=== PATIENT | male | born 1955 | race Caucasian/White ===

== ENCOUNTER → 2016-10-13 | Outpatient (CLI) | payer BC ==
[~2016-10-13] MED LIST: ASPI-232 PO; ATOR-24 PO; CLOP1TAB15 PO; LISI-461 PO; NTRGSL/4 UT; TAMS0.4C38 PO; TPRSR/50 PO
[2016-10-13 12:26] LABS: BASO % 0.4 %; BASO ABS # 0.03 K/uL (0-0.2); COMPLETE YES; EOS % 1.6 %; HEMATOCRIT 49.2 % (42-52); IG% 0.3 %; LYMPH % 22.6 %; LYMPH ABS # 1.73 K/uL (1.2-3.4); MEAN CELL VOLUME 93.4 fL (80-100); MEAN CORPUSCULAR HGB CONC 32.1 g/dl (32-36); MONO % 9.8 %; NEUT % 65.3 %; PLATELET COUNT 200 K/uL (130-400); RED BLOOD COUNT 5.27 M/uL (4.7-6.1); WHITE BLOOD COUNT 7.65 K/uL (4.8-10.8)
[2016-10-13 13:00] LABS: ESTIMATED AVERAGE GLUCOSE 131 mg/dl; HA1C FLAG Normal (Normal)
[2016-10-13 13:10] LABS: ALT/SGPT 34 U/L (12-78); AST/SGOT 23 U/L (15-37); BLOOD UREA NITROGEN 16 mg/dl (7-18); BUN/CREATININE RATIO 17.5 (10-20); CALCIUM 9.2 mg/dl (8.5-10.1); CARBON DIOXIDE 28 mmol/L (21-32); CHLORIDE 108 mmol/L (98-107); CREATININE 0.94 mg/dl (0.60-1.40); GLUCOSE 105 mg/dl (70-99); POTASSIUM 4.3 mmol/L (3.5-5.1); SODIUM 141 mmol/L (136-145)
[2016-10-13 13:12] LABS: ALB/GLOB RATIO 1.3 (0.9-2); ALKALINE PHOSPHATASE 90 U/L (45-117); CHOLESTEROL 138 mg/dl (0-200); CHOLESTEROL/HDL RATIO 2.9; HDL CHOLESTEROL 47 mg/dl; LDL CHOLESTEROL CALCULATED 68 mg/dl; TRIGLYCERIDES 114 mg/dl (0-150); VERY LOW DENSITY LIPOPROT CALC 23 mg/dl
[2016-10-13 13:19] LABS: MANUAL MICROSCOPIC REQUIRED? NO; REVIEW REQ? NO; URINE APPEARANCE CLEAR (CLEAR); URINE BILIRUBIN NEG (NEG); URINE COLOR YELLOW; URINE EPITHELIAL CELL AUTO 0-5 /lpf (0-5); URINE NITRITE NEG (NEG); URINE SPECIFIC GRAVITY 1.021 (1.000-1.030); UROBILINOGEN NEG (NEG); ZZUR CULT IF INDIC CLEAN CATCH NO
== END | disposition home or self-care (01) ==
LOC: C.LABBFT 07:36
PROVIDERS: ATTEND Internal Medicine
DX: E88.81 Metabolic syndrome and other insulin resistance (principal); E78.00 Pure hypercholesterolemia, unspecified; I25.10 Atherosclerotic heart disease of native coronary artery without angina pectoris

== ENCOUNTER 2016-11-23 07:55 | Day surgery (SDC) | payer BC ==
[~2016-11-23] VITALS: Ht 193 cm; Wt 147.0 kg
[~2016-11-23 07:55] MED LIST changes: +LIDOCAINE HCL 1% 20 ML VIAL ONE; +LIDOCAINE/EPINEPHRINE 1% INJ 50 ML VIAL ONE; +SODIUM BICARB 8.4% INJ 50 MEQ/50 ML SYR IV ONE; +SODIUM CHLORIDE 0.9% 1000ML IV SCH
[2016-11-23 08:43] VITALS: Ht 193 cm; Wt 147.0 kg
[2016-11-23] MEDS ORDERED: FENTANYL CITRATE INJ 50 MCG/1 ML 2 ML VIAL ONE (09:49)
[2016-11-23] MEDS ORDERED: MIDAZOLAM HCL 1 MG/ML 2ML VIAL ONE (09:49)
[2016-11-23 09:58] VITALS: BP 138/94; PULSE 67; O2SAT 92
--- NOTE | 2016-11-23 10:05 | Procedure Note ---
Pre-Mod Sedation Assessment General Date of Moderate Sedation: Nov 23, 2016. Review Cardiovascular: regular rate, rhythm, no edema Abdomen: normal bowel sounds, non tender Lungs: chest non-tender, lungs clear Airway Class: II Pre-Sedation Airway Assessment Oral Cavity: Dental Abnormalities Able to Visualize Vocal Cords: No Short Thick Neck: No Hx of Sleep Apnea: No Smoking Status: Never Smoker Mallampati Classification: Class II ASA Classification: Class II Procedure Planning Contraindications-for Mod Sed: None Yes Notes The planned sedation has been discussed with the patient and consent obtained. I have identified the patient, determined the appropriateness of sedation and have assessed the patient immediately prior to the procedure. All medicine(s) and interventions are by my order.
--- NOTE | 2016-11-23 10:11 | History and Physical ---
History & Physical Date Nov 23, 2016. History of Present Illness Mr. Grant is a very pleasant 60-year-old man with a history of coronary artery disease status post inferolateral OR in 2010, hypertension, hypothyroidism, prediabetes, hyperlipidemia here today for further management of chronic venous insufficiency. Patient notes worsened lower extremity edema in his right ankle since the 70s after initially injuring his ankle. In 2005 he underwent ankle fusion by Dr. Tran due to continued pain. Since that time he has had worsened lower extremity edema, intermittent cellulitis, last occurring several years ago. He denies any significant history of blood clots. Denies any family history of blood clots. He has been wearing compression stockings on and off over the last several years. This is not significantly changed his symptoms. On days of worsened swelling he notes significant discomfort around his ankle. No recent cellulitis but continued skin discoloration. Recent cardiovascular studies: Lower extremity venous duplex (09/2016): Right GSV dilated with reflux in prox to mid calf, right SSV dilated but no reflux. Left GSV dilated with reflux in proximal and mid calf. Left SSV dilated with reflux. No DVT/SVT bilaterally Echo (01/2016): Normal LV size, mildly reduced LV function, EF 45-50 percent, hypokinesis in the inferolateral, lateral wall. Type 1 diastolic dysfunction, moderately dilated aortic root Past Medical/Surgical History ActiveProblems_10_[id number] 1. Aortic root dilatation (I77.810) 2. Benign prostate hyperplasia (N40.0) 3. BPH with obstruction/lower urinary tract symptoms (N40.1,N13.8) 4. CAD (coronary artery disease) (I25.10) 5. Cellulitis of ankle (L03.119) 6. Chronic venous insufficiency (I87.2) 7. Coronary artery disease (I25.10) 8. Dysmetabolic syndrome X (E88.81) 9. Encounter for prostate cancer screening (Z12.5) 10. Erectile dysfunction (N52.9) 11. Fecal occult blood test positive (R19.5) 12. Graves disease (E05.00) 13. Hypercholesterolemia (E78.00) 14. Hypertension (I10) 15. History of Hyperthyroidism (E05.90) 16. Microscopic hematuria (R31.29) 17. Obesity (E66.9) 18. Osteoarthritis (M19.90) 19. Other specified disorder of skin and subcutaneous tissue (L98.8) 20. Pre-diabetes (R73.03) 21. Tinea corporis (B35.4) 22. Tubular adenoma of colon (D12.6) Additional History Hepatic Disease: No Endocrine Disorder: No Kidney Disease: No Hypertension: Yes Heart Disease: Yes Bleeding Tendencies: No Infectious Diseases: No Allergies Coded Allergies: Chlorhexidine (Verified Allergy, Intermediate, RASH, 02/02/16) Home Medications Scheduled Aspirin (Aspir-81), 81 MG PO QAM Atorvastatin (Lipitor), 40 MG PO HS Lisinopril (Lisinopril), 10 MG PO QAM Metoprolol Succinate (Metoprolol Succinate ER), 25 MG PO QAM Nitroglycerin (Nitrostat), 0.4 MG UT PRN Tamsulosin Hcl (Flomax), 0.4 MG PO HS Physical Examination Skin: warm/dry Neck: supple Respiratory/Chest: lungs clear Cardiovascular: regular rate, rhythm Extremities: + pertinent finding (right lower extremity swelling) Neurologic/Psych: no motor/sensory deficits, alert Diagnosis Chronic venous insufficiency ASA Classification: ASA Class II Plan of Treatment Right GSV RFA ablation
[2016-11-23] MEDS ORDERED: FENTANYL CITRATE INJ 50 MCG/1 ML 2 ML VIAL IV ONE (10:45)
[2016-11-23] MEDS ORDERED: ORM MISCELLANEOUS MED XX ONE (11:04)
[2016-11-23] MEDS ORDERED: LIDOCAINE HCL 1% 20 ML VIAL SQ ONE (11:04)
--- NOTE | 2016-11-23 11:14 | Procedure Note ---
Post-Mod Sedation Assessment General Date of Moderate Sedation Nov 23, 2016. Review - Discharge Criteria Vital Signs Stable: Yes Alert/Oriented/Conversant: Yes Returned to Baseline Mental St: Yes Nausea Absent/Minimal: Yes Pain/Discomfort/Absent/Minimal: Yes Normal/Baseline Respirations: Yes Active Bleeding?: N/A Pt Received D/C Instructions: Yes Specific Proced. D/C Criteria Distal Pulses Present (Cardiac: Yes Groin site assessed-Card Cath: N/A Voided Prior To Discharge: N/A Discharged Patients Adult Escort/Transportation: Yes
--- NOTE | 2016-11-23 11:14 | [facility] Operative Report ---
Operative Report Operative Date Nov 23, 2016. Pre-Operative Diagnosis Chronic venous insufficiency Post-Operative Diagnosis Chronic venous insufficiency Procedure(s) Performed Right GSV ablation Surgeon Mireles Estimated Blood Loss <10 Findings Dilated right GSV. No superficial or deep vein thrombosis. Specimens none Drains none Anesthesia moderate Complication(s) None Disposition Recovery Room / PACU Indications chronic venous insufficiency Description of Procedure US guided access Right GSV below the knee. Catheter inserted, 2.5 cm from SFJ. Tumescent injected. US confirmed not in deep system. 4:40, 14 cycles of RFA right GSV. No complications. Patient tolerated well. US confirmed no DVT post procedure. I attest to the content of the Intraoperative Record and any orders documented therein. Any exceptions are noted below.
--- NOTE | 2016-11-23 11:15 | Discharge Instructions ---
Discharge Instructions Date of Service Nov 23, 2016. Visit Reason for Visit: Chronic Venous Insufficiency Discharge Discharge Diagnosis / Problem: Chronic venous insufficiency Discharge Goals Goal(s): Decrease discomfort, Improve function Activity Recommendations Activity Limitations: resume your previous activity Lifting Limitations: gradually increase as tolerated Exercise/Sports Limitations: rest today (resume normal walking later today), gradually increase as tolerated Driving or Machine Use: resume 1 day after discharge Anesthesia . Post Anesthesia Instructions: If you have had General Anesthesia or IV Sedation: * Do not drive today. * Resume driving when surgeon permits. * Do not make important decisions or sign legal documents today. * Call surgeon for: 1. Temperature elevations greater than 101 degrees F. 2. Uncontrollable pain. 3. Excessive bleeding. 4. Persistent nausea and vomiting. 5. Medication intolerance (nausea, vomiting or rash). * For nausea and vomiting use only clear liquids such as: tea, soda, bouillon until nausea subsides, then gradually increase diet as tolerated. * If you have any concerns or questions, call your surgeon's office. If physician is unavailable and it is an emergency, call 911 or go to the nearest emergency room. . Instructions / Follow-Up Instructions / Follow-Up KATHIE wrap until night before bed, Monday morning, wear your compression stockings and continue to wear indefinitely. Follow up Ultrasound as scheduled. Any severe pain, present to the emergency room concerned about DVT. Diet Recommendations Recommended Home Diet: resume previous diet Pending Studies Studies pending at discharge: yes List of pending studies: Venous ultrasound on Monday Medical Emergencies . Who to Call and When: Medical Emergencies: If at any time you feel your situation is an emergency, please call 911 immediately. . Non-Emergent Contact Non-Emergency issues call your: Primary Care Provider, [employer] Call Non-Emergent contact if: your pain is not controlled, your pain is concerning you, wound has increased redness, wound has increased pain . . "Provider Documentation" section prepared by Alirio Mireles. .
[2016-11-23 11:20] VITALS: BP 122/88; PULSE 70; TEMP 36.6; O2SAT 95
[2016-11-23 11:50] VITALS: BP 120/83; PULSE 76; TEMP 36.6; O2SAT 95
[2016-11-23 12:25] VITALS: BP 120/79; PULSE 74; TEMP 36.6; O2SAT 95
--- NOTE | 2016-11-23 12:58 | DIAGNOSTIC IMAGING REPORT ---
INTRAOPERATIVE VENOUS GUIDANCE NO CHARGE CLINICAL HISTORY: Diffuse ablation COMPARISON STUDY: No previous studies for comparison. FINDINGS: Intraoperative guidance was provided by the certified surgical technologist. There was no radiologist input IMPRESSION: Intraoperative ultrasound guidance provided by the certified surgical technologist Electronically signed by: Florin Daniel M.D. 11/23/2016 12:57 PM Dictated Date/Time: 11/23/2016 12:56 PM
== END 2016-11-23 12:25 | disposition home or self-care (01) ==
LOC: C.ACU 07:55
PROVIDERS: ATTEND Internal Medicine Interventional Cardiology
DX: I87.2 Venous insufficiency (chronic) (peripheral) (principal); I25.10 Atherosclerotic heart disease of native coronary artery without angina pectoris; I10 Essential (primary) hypertension; E03.9 Hypothyroidism, unspecified; E78.5 Hyperlipidemia, unspecified; R73.03 Prediabetes; N40.0 Benign prostatic hyperplasia without lower urinary tract symptoms; I77.810 Thoracic aortic ectasia; E88.81 Metabolic syndrome and other insulin resistance; Z79.82 Long term (current) use of aspirin; E66.9 Obesity, unspecified; M19.90 Unspecified osteoarthritis, unspecified site

== ENCOUNTER → 2017-05-01 | Outpatient (CLI) | payer BC ==
[~2017-05-01] MED LIST changes: -CLOP1TAB15 PO; -LIDOCAINE HCL 1% 20 ML VIAL ONE; -LIDOCAINE/EPINEPHRINE 1% INJ 50 ML VIAL ONE; -SODIUM BICARB 8.4% INJ 50 MEQ/50 ML SYR IV ONE; -SODIUM CHLORIDE 0.9% 1000ML IV SCH
[2017-05-01 13:05] LABS: ESTIMATED AVERAGE GLUCOSE 131 mg/dl; HA1C FLAG Normal (Normal)
[2017-05-01 13:27] LABS: PROSTATE SPECIFIC ANTIGEN 1.92 ng/ml (0.000-4.000)
== END | disposition home or self-care (01) ==
LOC: C.LABBFT 07:36
PROVIDERS: ATTEND Internal Medicine
DX: R73.03 Prediabetes (principal); Z12.5 Encounter for screening for malignant neoplasm of prostate; Z11.59 Encounter for screening for other viral diseases

== ENCOUNTER → 2017-08-28 | Outpatient (CLI) | payer BC | END | disposition home or self-care (01) | LOC: C.RDSM 07:20 | PROVIDERS: ATTEND Physical Medicine & Rehabilitation Sports Medicine | DX: Z96.642 Presence of left artificial hip joint (principal); M25.551 Pain in right hip ==

== ENCOUNTER → 2017-10-27 | Outpatient (CLI) | payer BC ==
[2017-10-27 12:12] LABS: BASO % 0.4 %; BASO ABS # 0.03 K/uL (0-0.2); EOS % 1.4 %; HEMATOCRIT 49.7 % (42-52); HEMOGLOBIN 16.3 g/dL (14.0-18.0); IG# 0.03 K/uL (0.00-0.02); LYMPH % 30.2 %; LYMPH ABS # 2.11 K/uL (1.2-3.4); MEAN CELL VOLUME 92.4 fL (80-100); MEAN CORPUSCULAR HEMOGLOBIN 30.3 pg (25-34); MEAN CORPUSCULAR HGB CONC 32.8 g/dl (32-36); MEAN PLATELET VOLUME 11.9 fL (7.4-10.4); MONO % 8.9 %; MONO ABS # 0.62 K/uL (0.11-0.59); NEUT % 58.7 %; PLATELET COUNT 170 K/uL (130-400); RED CELL DISTRIBUTION WIDTH CV 14.4 % (11.5-14.5); RED CELL DISTRIBUTION WIDTH SD 48.8 fL (36.4-46.3); WHITE BLOOD COUNT 6.99 K/uL (4.8-10.8)
[2017-10-27 12:32] LABS: HEMOGLOBIN A1C 6.3 % (4.5-5.6)
[2017-10-27 12:44] LABS: ALBUMIN 4.1 gm/dl (3.4-5.0); ALT/SGPT 34 U/L (12-78); AST/SGOT 29 U/L (15-37); BLOOD UREA NITROGEN 15 mg/dl (7-18); CALCIUM 8.9 mg/dl (8.5-10.1); CARBON DIOXIDE 28 mmol/L (21-32); CHOLESTEROL 113 mg/dl (0-200); CREATININE 0.89 mg/dl (0.60-1.40); GLUCOSE 100 mg/dl (70-99); POTASSIUM 4.3 mmol/L (3.5-5.1); SODIUM 142 mmol/L (136-145)
[2017-10-27 12:54] LABS: ALKALINE PHOSPHATASE 90 U/L (45-117); LDL CHOLESTEROL CALCULATED 49 mg/dl; TOTAL PROTEIN 7.3 gm/dl (6.4-8.2)
== END | disposition home or self-care (01) ==
LOC: C.LABBFT 07:33
PROVIDERS: ATTEND Internal Medicine
DX: I25.10 Atherosclerotic heart disease of native coronary artery without angina pectoris (principal); E05.90 Thyrotoxicosis, unspecified without thyrotoxic crisis or storm; R73.03 Prediabetes

== ENCOUNTER 2022-01-18 16:17 | Inpatient (IN) ==
[2022-01-18 17:20] LABS: Basophils # (auto) 0.05 K/uL (0-0.2); Basophils % (auto) 0.5 %; Eosinophils # (auto) 0.03 K/uL (0-0.50); Eosinophils % (auto) 0.3 %; Hematocrit (blood only) 50.1 % (40.1-51.0); Hemoglobin 15.3 g/dl (14.0-18.0); Immature Granulocytes # (auto) 0.05 K/uL (0.00-0.02); Immature Granulocytes % (auto) 0.5 %; Lymphocytes # (auto) 1.42 K/uL (1.2-3.4); Lymphocytes % (auto) 13.7 %; Mean Corpuscular Hemoglobin 28.9 pg (25.0-34.0); Mean Corpuscular Hgb Conc 30.5 g/dL (32.0-36.0); Mean Corpuscular Volume 94.7 fL (80.0-100.0); Mean Platelet Volume 11.6 fL (9.4-12.4); Monocytes % (auto) 6.7 %; Neutrophils # (auto) 8.14 K/uL (1.4-6.5); Neutrophils % (auto) 78.3 %; Platelet Count 181 K/uL (130-400); RDW Coefficient of Variation 15.3 % (11.5-14.5); RDW Standard Deviation 53.1 fL (36.4-46.3); Red Blood Count 5.29 M/uL (4.63-6.08); White Blood Count 10.39 K/ul (4.8-10.8)
--- NOTE | 2022-01-18 17:28 | Emergency Department Note ---
Impression & Plan Pneumonia, Hypoxia, Acute respiratory acidosis ED Provider Note NAME: ALTHEA GRIMES AGE: 66 SEX: M : 1955 ARRIVES VIA: Ambulance INFORMANT: Patient, ED PROVIDER(S): Robe Alexandre DO CHIEF COMPLAINT: Shortness of breath HPI: The patient is a 66-year-old male who presented to the emergency department by ambulance from [facility] for an evaluation of difficulty breathing. The patient was scheduled for a cataract surgery on his left eye today. They did notice that preop he was having some difficulty breathing every time he laid flat his oxygen saturation would drop. He was placed on supplemental oxygen. He was treated with Versed. His breathing started to become worse so he was sent to the emergency department for further evaluation. The patient did notice that his breathing has been labored over the course the last few weeks. He described it as having an upper respiratory tract infection with a cough which was productive for yellow sputum. He denies having any nausea or vomiting. He denies having any chest pain. He did note some lower extremity swelling especially in his right leg but this is not new for him. He has had this swelling for many years ever since he injured that leg. He denies having any hemoptysis. The patient did have a COVID test prior to the procedure which was negative. He states symptoms are moderately improved at this time. He was placed on oxygen mask by nursing. ROS: See above HPI for pertinent positives & negatives. A total of 10 systems reviewed and were otherwise negative. PAST MEDICAL HISTORY: See Below PAST SURGICAL HISTORY: See Below FAMILY HISTORY: See Below SOCIAL HISTORY: See Below HOME MEDICATIONS: See Below ALLERGIES: See Below VITALS: See Below PHYSICAL EXAMINATION: GENERAL: Patient is awake alert in no acute distress patient is resting comfortably and showing no signs of anxiety EYES: The conjunctivae are clear. The pupils right pupil is normal size and reactive. Left pupil is dilated consistent with recent surgical intervention. EARS, NOSE, MOUTH AND THROAT: The nose is without any evidence of any deformity. Mucous membranes are moist. Tongue is midline. NECK: The neck is nontender and supple. RESPIRATORY: Diminished breath sounds are noted throughout. There were rales in both upper lung elizabeth. There was mild conversational dyspnea. CARDIOVASCULAR: Regular rate and rhythm noted there no murmurs rubs or gallops normal S1 normal S2. GASTROINTESTINAL: The abdomen is soft. Abdomen is nontender. MUSCULOSKELETAL/EXTREMITIES: There is no evidence of gross deformity full range of motion is noted in the hips and shoulders. SKIN: Pedal edema was noted bilaterally right greater than left. There was mild venous stasis changes in the right lower extremity. There was no lymphangitic s treaking. NEUROLOGIC: Patient is awake alert and oriented x3 MEDICAL DECISION MAKING: The patient is a 66-year-old male who presented to the emergency department for an evaluation of difficulty breathing. The patient recently had a cataract procedure and and postop he was found to have difficulty breathing and hypoxia. He was sent to the emergency department for further evaluation. I discussed the patient's laboratory and radiographic studies with him. He was treated with IV antibiotics in the emergency department. He was also placed on supplemental oxygen. The patient was found to be hypoxic initially and with any exertion he would worsen with his respiratory distress. Because of his findings I discussed this case with the on-call [facility] hospitalist. They have agreed to evaluate the patient in the emergency department for further management and disposition. Triage Nursing notes reviewed. Prior medical records reviewed Vital Signs: reviewed and remarkable for hypoxia. Differential diagnosis: Reactive airway disease, pneumonia, pneumothorax, COPD, CHF, infections, cardiac ischemia, pulmonary embolism, musculoskeletal, gastrointestinal, as well as other pathologies. ER treatment provided: See below Diagnostics interpreted by me: ECG: EKG was obtained in the emergency department. My interpretation is sinus rhythm at 86 bpm. PVCs were noted. Nonspecific ST segment abnormalities were noted. Ectopic atrial pacemaker is noted as well. This was compared to a tracing from January 25, 2016. There was an increase in the rate. The ectopy is new. Otherwise no significant changes were noted. Cardiac Monitoring: An order was placed for continuous cardiac monitoring. The monitor shows a rate of 84 bpm with sinus rhythm. Laboratory studies: As stated above and show below. Imaging studies: See below Consultation(s): I discussed this case with Dr. Granados ED COURSE: Procedures: none Critical Care: I have personally spent greater than 5 minutes of critical care time in the direct management of this patient. This includes bedside care, interpretation of diagnostic studies, and testing, discussion with consultants, patient, and family members, and other required patient management activities. This 50 minutes is in excess of all separately billable procedures. Past Med/Surg History Medical History (Updated 01/18/22 @ 19:43 by Robe Alexandre DO) BPH (benign prostatic hyperplasia) Myocardial infarction (01/08/11) 2010--on aspirin--follows with Dr. Vazquez On anticoagulant therapy 162 mg aspirin daily Prediabetes metformin daily Tubular adenoma of colon Umbilical hernia Surgical History History of ankle surgery right ankle fusion--hardware in place History of appendectomy History of cardiac cath 12/2010 @ [facility]--no stents History of colonoscopy with polypectomy History of rotator cuff surgery left History of tooth extraction History of total hip replacement left Status post endovenous radiofrequency ablation of saphenous vein (11/23/16) Family History Father Myocardial infarction Coronary heart disease Mother Diabetes Stroke Sister Diabetes Aunt Colorectal cancer Other No family history of adverse response to anesthesia Denies family history of Ovarian cancer Prostate cancer Breast cancer Social History Smoking Status: Never smoker Second Hand Exposure: Yes (parents smoked); Hx Alcohol Use: Yes Alcohol type: beer and hard liquor Hx Substance Use: No Preferred Language: Amharic Communication Ability: Effective Drapery Counselor Required: No Beliefs That Will Affect Care: None marital status: Current Living Situation: Spouse current occupational status: retired Feels Safe at Home: Yes Childhood Exposure to Second-Hand Smoke: Yes caffeine: No Dental Care, Regularly: Yes Physical Activity Frequency: Does not Exercise Seatbelt Use: always Sunscreen Use: Yes (when he goes to the beach) Assistive Devices: Contacts and Glasses Allergies Allergies Allergy/AdvReac Type Severity Reaction Status Date / Time chlorhexidine Allergy Mild RASH Verified 01/18/22 19:29 Home Meds Home Medications Medication Instructions Recorded Confirmed cyanocobalamin (vitamin B-12) 1,000 mcg PO QAM 03/24/20 01/18/22 1,000 mcg tablet (Vitamin B-12) aspirin 81 mg tablet,delayed 162 mg PO DAILY 01/18/22 01/18/22 release prednisolone 1 %-moxifloxacin 0.5 1 drp ophthalmic (eye) QID 01/18/22 01/18/22 %-bromfenac 0.075 % eye drops susp Previous Rx's Medication Instructions Recorded nitroglycerin 0.4 mg sublingual 0.4 mg sublingual UD PRN Angina 12/18/20 tablet #25 tabs atorvastatin 80 mg tablet 80 mg PO QAM #30 tabs 02/08/21 losartan 50 mg tablet 50 mg PO QAM #90 tabs 05/10/21 metoprolol succinate 50 mg 25 mg PO QAM #45 tabs 10/18/21 tablet,extended release 24 hr metformin 500 mg tablet,extended 1,000 mg PO BID #360 tabs 01/17/22 release 24 hr Results & Data (ED) Vital Signs Vital Signs - 24 hr 01/18/22 16:32 01/18/22 16:37 01/18/22 16:37 Temperature 36.6 C 36.6 C Temperature Source Oral Oral Pulse Rate 78 Pulse Rate [Right Finger] 78 Pulse Rhythm Regular Pulse Rhythm [Right Finger] Regular Pulse Strength Normal Pulse Strength [Right Finger] Normal Respiratory Rate 17 17 Respiratory Effort / Characteristics Non-Labored Spontaneous Non-Labored Non-Labored Spontaneous Respiratory Depth Normal Normal Normal Respiratory Pattern Regular Regular Regular Blood Pressure 133/82 Blood Pressure [Left Arm] 133/82 Blood Pressure Mean 99 Blood Pressure Mean [Left Arm] 99 Blood Pressure Position Lying Blood Pressure Position [Left Arm] Lying Pulse Oximetry 92 93 Oxygen Delivery Method Oxymask Oxymask Oxymask Oxygen Flow Rate 7 7 7 Sepsis Recent Fever Within 48 Hours No Sepsis New/Unexplained Change in Mental Status No Sepsis Action Taken by Nursing No Action Required 01/18/22 16:42 01/18/22 17:18 01/18/22 18:32 Temperature Temperature Source Pulse Rate 82 Pulse Rate [Right Finger] 88 Pulse Rhythm Regular Pulse Rhythm [Right Finger] Regular Pulse Strength Pulse Strength [Right Finger] Normal Respiratory Rate 17 15 Respiratory Effort / Characteristics Non-Labored Respiratory Depth Normal Respiratory Pattern Blood Pressure Blood Pressure [Left Arm] 118/74 Blood Pressure Mean Blood Pressure Mean [Left Arm] 88 Blood Pressure Position Blood Pressure Position [Left Arm] Pulse Oximetry 92 89 L Oxygen Delivery Method Nasal Cannula Oxymask Nasal Cannula Oxygen Flow Rate 6 7 6 Sepsis Recent Fever Within 48 Hours Sepsis New/Unexplained Change in Mental Status Sepsis Action Taken by Nursing 01/18/22 19:41 Temperature Temperature Source Pulse Rate Pulse Rate [Right Finger] 84 Pulse Rhythm Pulse Rhythm [Right Finger] Pulse Strength Pulse Strength [Right Finger] Respiratory Rate 21 Respiratory Effort / Characteristics Non-Labored Spontaneous Respiratory Depth Normal Respiratory Pattern Regular Blood Pressure Blood Pressure [Left Arm] 122/72 Blood Pressure Mean Blood Pressure Mean [Left Arm] 88 Blood Pressure Position Blood Pressure Position [Left Arm] Sitting Pulse Oximetry 92 Oxygen Delivery Method Oxymask Oxygen Flow Rate 11 Sepsis Recent Fever Within 48 Hours Sepsis New/Unexplained Change in Mental Status Sepsis Action Taken by Assisted Medications Current Medication List: was personally reviewed by me Laboratory Data Attestation: I reviewed the patient's lab results. Result diagrams: 01/18/22 16:40 01/18/22 16:40 Lab Results 01/18/22 01/18/22 01/18/22 Range/Units 16:40 16:40 16:40 WBC 10.39 (4.8-10.8) K/ul RBC 5.29 (4.63-6.08) M/uL Hgb 15.3 (14.0-18.0) g/dl Hct 50.1 (40.1-51.0) % MCV 94.7 (80.0-100.0) fL MCH 28.9 (25.0-34.0) pg MCHC 30.5 L (32.0-36.0) g/dL RDW Std Deviation 53.1 H (36.4-46.3) fL RDW Coeff of Sara 15.3 H (11.5-14.5) % Plt Count 181 (130-400) K/uL MPV 11.6 (9.4-12.4) fL Immature Gran % (Auto) 0.5 % Neut % (Auto) 78.3 % Lymph % (Auto) 13.7 % Burnet % (Auto) 6.7 % Eos % (Auto) 0.3 % Baso % (Auto) 0.5 % Neut # (Auto) 8.14 H (1.4-6.5) K/uL Lymph # (Auto) 1.42 (1.2-3.4) K/uL Burnet # (Auto) 0.70 (0.24-0.82) K/uL Eos # (Auto) 0.03 (0-0.50) K/uL Baso # (Auto) 0.05 (0-0.2) K/uL Immature Gran # (Auto) 0.05 H (0.00-0.02) K/uL PT 11.7 (9.0-12.0) Seconds INR 1.1 (0.9-1.1) APTT 24.8 (21.0-31.0) Seconds PTT Ratio 0.9 D-Dimer 440 (0-500) ug/L FEU VBG pH (7.36-7.41) VBG pCO2 (38-50) mmHg VBG pO2 mmHg VBG HCO3 mmol/L VBG O2 Saturation % VBG Base Excess mEq/L Methemoglobin (0.0-1.5) % Sodium 140 (136-145) mmol/L Potassium 4.2 (3.5-5.1) mmol/L Chloride 101 (98-107) mmol/L Carbon Dioxide 30 (21-32) mmol/L Anion Gap 9 (3-11) BUN 16 (6-23) mg/dl Creatinine 0.75 (0.6-1.4) mg/dl Est Cr Clr Drug Dosing 158.1 ml/min Est GFR ( Amer) 110.8 ml/min Est GFR (Non-Af Amer) 95.6 ml/min BUN/Creatinine Ratio 21.3 H (10-20) Glucose 132 H (70-99(Fasting)) mg/dl Calcium 9.2 (8.5-10.1) mg/dl Magnesium 2.1 (1.7-2.4) mg/dl Total Bilirubin 1.0 (0.2-1.0) mg/dl AST 22 (13-39) U/L ALT 23 (7-52) U/L Alkaline Phosphatase 75 (34-104) U/L Troponin I High Sens 9.9 (0-20) pg/ml B-Natriuretic Peptide (0-100) pg/ml Total Protein 7.3 (6.0-8.3) gm/dl Albumin 4.2 (3.4-5.0) gm/dl Globulin 3.1 (2.5-4.0) gm/dl Albumin/Globulin Ratio 1.4 (0.9-2) Urine Color Urine Appearance (Clear) Urine pH (4.5-7.5) Ur Specific Monroe (1.000-1.030) Urine Protein (Negative) Urine Glucose (UA) (Negative) Urine Ketones (Negative) Urine Blood (Negative) Urine Nitrite (Negative) Urine Bilirubin (Negative) Urine Urobilinogen (Negative) Ur Leukocyte Esterase (Negative) SARS-CoV-2 (PCR) (Negative) Influenza Type A (PCR) (Neg) Influenza Type B (PCR) (Neg) RSV (RT-PCR) (Neg) 01/18/22 01/18/22 01/18/22 Range/Units 16:40 17:26 17:26 WBC (4.8-10.8) K/ul RBC (4.63-6.08) M/uL Hgb (14.0-18.0) g/dl Hct (40.1-51.0) % MCV (80.0-100.0) fL MCH (25.0-34.0) pg MCHC (32.0-36.0) g/dL RDW Std Deviation (36.4-46.3) fL RDW Coeff of Sara (11.5-14.5) % Plt Count (130-400) K/uL MPV (9.4-12.4) fL Immature Gran % (Auto) % Neut % (Auto) % Lymph % (Auto) % Burnet % (Auto) % Eos % (Auto) % Baso % (Auto) % Neut # (Auto) (1.4-6.5) K/uL Lymph # (Auto) (1.2-3.4) K/uL Burnet # (Auto) (0.24-0.82) K/uL Eos # (Auto) (0-0.50) K/uL Baso # (Auto) (0-0.2) K/uL Immature Gran # (Auto) (0.00-0.02) K/uL PT (9.0-12.0) Seconds INR (0.9-1.1) APTT (21.0-31.0) Seconds PTT Ratio D-Dimer (0-500) ug/L FEU VBG pH (7.36-7.41) VBG pCO2 (38-50) mmHg VBG pO2 mmHg VBG HCO3 mmol/L VBG O2 Saturation % VBG Base Excess mEq/L Methemoglobin (0.0-1.5) % Sodium (136-145) mmol/L Potassium (3.5-5.1) mmol/L Chloride (98-107) mmol/L Carbon Dioxide (21-32) mmol/L Anion Gap (3-11) BUN (6-23) mg/dl Creatinine (0.6-1.4) mg/dl Est Cr Clr Drug Dosing ml/min Est GFR ( Amer) ml/min Est GFR (Non-Af Amer) ml/min BUN/Creatinine Ratio (10-20) Glucose (70-99(Fasting)) mg/dl Calcium (8.5-10.1) mg/dl Magnesium (1.7-2.4) mg/dl Total Bilirubin (0.2-1.0) mg/dl AST (13-39) U/L ALT (7-52) U/L Alkaline Phosphatase (34-104) U/L Troponin I High Sens (0-20) pg/ml B-Natriuretic Peptide 43 (0-100) pg/ml Total Protein (6.0-8.3) gm/dl Albumin (3.4-5.0) gm/dl Globulin (2.5-4.0) gm/dl Albumin/Globulin Ratio (0.9-2) Urine Color Yellow Urine Appearance Clear (Clear) Urine pH 5.5 (4.5-7.5) Ur Specific Monroe 1.021 (1.000-1.030) Urine Protein Negative (Negative) Urine Glucose (UA) Negative (Negative) Urine Ketones Negative (Negative) Urine Blood Negative (Negative) Urine Nitrite Negative (Negative) Urine Bilirubin Negative (Negative) Urine Urobilinogen Negative (Negative) Ur Leukocyte Esterase Negative (Negative) SARS-CoV-2 (PCR) NEGATIVE (Negative) Influenza Type A (PCR) Negative (Neg) Influenza Type B (PCR) Negative (Neg) RSV (RT-PCR) Negative (Neg) 01/18/22 01/18/22 Range/Units 17:54 17:54 WBC (4.8-10.8) K/ul RBC (4.63-6.08) M/uL Hgb (14.0-18.0) g/dl Hct (40.1-51.0) % MCV (80.0-100.0) fL MCH (25.0-34.0) pg MCHC (32.0-36.0) g/dL RDW Std Deviation (36.4-46.3) fL RDW Coeff of Sara (11.5-14.5) % Plt Count (130-400) K/uL MPV (9.4-12.4) fL Immature Gran % (Auto) % Neut % (Auto) % Lymph % (Auto) % Burnet % (Auto) % Eos % (Auto) % Baso % (Auto) % Neut # (Auto) (1.4-6.5) K/uL Lymph # (Auto) (1.2-3.4) K/uL Burnet # (Auto) (0.24-0.82) K/uL Eos # (Auto) (0-0.50) K/uL Baso # (Auto) (0-0.2) K/uL Immature Gran # (Auto) (0.00-0.02) K/uL PT (9.0-12.0) Seconds INR (0.9-1.1) APTT (21.0-31.0) Seconds PTT Ratio D-Dimer (0-500) ug/L FEU VBG pH 7.25 L (7.36-7.41) VBG pCO2 79 H (38-50) mmHg VBG pO2 58 mmHg VBG HCO3 35 mmol/L VBG O2 Saturation 87.6 % VBG Base Excess 4.6 mEq/L Methemoglobin 0.7 (0.0-1.5) % Sodium (136-145) mmol/L Potassium (3.5-5.1) mmol/L Chloride (98-107) mmol/L Carbon Dioxide (21-32) mmol/L Anion Gap (3-11) BUN (6-23) mg/dl Creatinine (0.6-1.4) mg/dl Est Cr Clr Drug Dosing ml/min Est GFR ( Amer) ml/min Est GFR (Non-Af Amer) ml/min BUN/Creatinine Ratio (10-20) Glucose (70-99(Fasting)) mg/dl Calcium (8.5-10.1) mg/dl Magnesium (1.7-2.4) mg/dl Total Bilirubin (0.2-1.0) mg/dl AST (13-39) U/L ALT (7-52) U/L Alkaline Phosphatase (34-104) U/L Troponin I High Sens (0-20) pg/ml B-Natriuretic Peptide (0-100) pg/ml Total Protein (6.0-8.3) gm/dl Albumin (3.4-5.0) gm/dl Globulin (2.5-4.0) gm/dl Albumin/Globulin Ratio (0.9-2) Urine Color Urine Appearance (Clear) Urine pH (4.5-7.5) Ur Specific Monroe (1.000-1.030) Urine Protein (Negative) Urine Glucose (UA) (Negative) Urine Ketones (Negative) Urine Blood (Negative) Urine Nitrite (Negative) Urine Bilirubin (Negative) Urine Urobilinogen (Negative) Ur Leukocyte Esterase (Negative) SARS-CoV-2 (PCR) (Negative) Influenza Type A (PCR) (Neg) Influenza Type B (PCR) (Neg) RSV (RT-PCR) (Neg) Administered Medications Discontinued Medications Piperacillin Sod/Tazobactam Sod (Zosyn) 4.5 gm in 120 mls @ 240 mls/hr IV NOW ONE Stop: 01/18/22 19:03 Last Infusion: 01/18/22 19:24 Dose: 0 mls/hr Documented By: Admin: 01/18/22 18:50 Dose: 240 mls/hr Documented By: BRENNEN Ondansetron HCl (Ondansetron Inj 2 Mg/Ml 2 Ml Vial) Confirm Administered Dose 4 mg .ROUTE .STK-MED ONE Stop: 01/18/22 17:32 Last Admin: 01/18/22 17:32 Dose: 4 mg Documented By: BRENNEN Imaging Data Radiologist's Impression: Chest X-Ray 01/18/22 17:06 SINGLE VIEW CHEST CLINICAL HISTORY: Dyspnea. FINDINGS: An AP, portable, upright chest radiograph is compared to study dated 01/06/2011. The heart is enlarged noting atherosclerotic calcification of the thoracic aorta. There is pulmonary vascular congestion. There are bibasilar opacities, left greater than right. No large pleural effusion or pneumothorax is seen. The skeletal structures are osteopenic. The bony thorax is grossly intact. IMPRESSION: 1. Cardiomegaly with pulmonary vascular congestion. 2. There are left greater than right bibasilar opacities, likely representing atelectasis. Correlate clinically for evidence of an infectious/inflammatory pneumonitis. Radiographic follow-up to resolution is recommended. ACT 112: Negative or not required by law. Electronically signed by: John Rivers M.D. 01/18/2022 7:07 PM Discharge Plan Visit Data Chief Complaint: Shortness of Breath/Dyspnea Stated Complaint: SOB ED Provider: Robe Alexandre Discharge Problem: Pneumonia, Hypoxia, Acute respiratory acidosis Patient Disposition: Being Evaluated by Hospitalist Forms Stand Alone Forms: [facility] Prescriptions Prescriptions: No Action nitroglycerin 0.4 mg tablet, sublingual 0.4 mg SL UD PRN (Reason: Angina) Qty: 25 3RF atorvastatin 80 mg tablet 80 mg PO QAM Qty: 30 11RF losartan 50 mg tablet 50 mg PO QAM Qty: 90 3RF metoprolol succinate 50 mg tablet extended release 24 hr 25 mg PO QAM Qty: 45 3RF metformin 500 mg tablet extended release 24 hr 1,000 mg PO BID Qty: 360 3RF cyanocobalamin (vitamin B-12) [Vitamin B-12] 1,000 mcg Tablet 1,000 mcg PO QAM aspirin 81 mg Tablet,Delayed Release (Dr/Ec) 162 mg PO DAILY [id number] 1-0.5-0.075 % Drops,Suspension 1 drp OPHTHALMIC (EYE) QID Rx Instructions: PT HAS OWN BOTTLE. STARTED 01/18/22. Referrals Referrals: Arie Mejia MD [Primary Care Provider] -
[2022-01-18] MEDS ORDERED: ONDANSETRON INJ 2 MG/ML 2 ML VIAL ONE (17:31)
[2022-01-18 17:32] LABS: D Dimer 440 ug/L FEU (0-500); INR 1.1 (0.9-1.1); Partial Thromboplastin Ratio 0.9; Partial Thromboplastin Time 24.8 Seconds (21.0-31.0); Prothrombin Time 11.7 Seconds (9.0-12.0)
[2022-01-18 17:47] LABS: Troponin I High Sensitivity 9.9 pg/ml (0-20)
[2022-01-18 18:08] LABS: Albumin Globulin Ratio 1.4 (0.9-2); Albumin Level 4.2 gm/dl (3.4-5.0); BUN Creatinine Ratio 21.3 (10-20); Calcium 9.2 mg/dl (8.5-10.1); Creatinine Clr Calc Pharmacy 158.1 ml/min; Est GFR (African American) 110.8 ml/min; Est GFR (Non-African American) 95.6 ml/min; Globulin 3.1 gm/dl (2.5-4.0); Magnesium 2.1 mg/dl (1.7-2.4); Potassium 4.2 mmol/L (3.5-5.1); Total Protein 7.3 gm/dl (6.0-8.3)
[2022-01-18 18:08] LABS: Appearance Urine Clear (Clear); Bilirubin Urine Negative (Negative); Blood Urine Negative (Negative); Color Urine Yellow; Glucose Urine UA Negative (Negative); Ketones Urine Negative (Negative); Leukocyte Esterase Urine Negative (Negative); Nitrite Urine Negative (Negative); Protein Urine Negative (Negative); Specific Gravity Urine 1.021 (1.000-1.030); Urobilinogen Urine Negative (Negative); pH Urine 5.5 (4.5-7.5)
[2022-01-18 18:19] LABS: Base Excess VBG 4.6 mEq/L; HCO3 VBG 35 mmol/L; Oxygen Saturation VBG 87.6 %; PCO2 VBG 79 mmHg (38-50); PO2 VBG 58 mmHg; pH VBG 7.25 (7.36-7.41)
[2022-01-18] MEDS ORDERED: PIPERACILLIN/TAZOBACTAM 4.5 GM/120 ML BAG IV ONE (18:34)
[2022-01-18 18:46] LABS: Influenza A virus by PCR Negative (Neg); Influenza B virus by PCR Negative (Neg); RSV by PCR Negative (Neg); SARS CoV2 RNA(COVID-19) InHosp NEGATIVE (Negative)
--- NOTE | 2022-01-18 19:09 | XRay Report ---
SINGLE VIEW CHEST CLINICAL HISTORY: Dyspnea. FINDINGS: An AP, portable, upright chest radiograph is compared to study dated 01/06/2011. The heart i s enlarged noting atherosclerotic calcification of the thoracic aorta. There is pulmonary vascular co ngestion. There are bibasilar opacities, left greater than right. No large pleural effusion or pneumo thorax is seen. The skeletal structures are osteopenic. The bony thorax is grossly intact. IMPRESSION: 1. Cardiomegaly with pulmonary vascular congestion. 2. There are left greater than right bibasilar opacities, likely representing atelectasis. Correlate clinically for evidence of an infectious/inflammatory pneumonitis. Radiographic follow-up to resoluti on is recommended. ACT 112: Negative or not required by law. Electronically signed by: John Rivers M.D. 01/18/2022 7:07 PM
[2022-01-18] MEDS ORDERED: ALBUT/IPRATROP 3MG/0.5MG NEB 3 ML VIAL NEB STA (19:30)
--- NOTE | 2022-01-18 20:39 | History & Physical Report ---
Date of Service January 18, 2022 Assessment & Plan (1) Acute respiratory failure with hypoxia: Plan: Acute respiratory failure with hypoxia/pneumonia- Zosyn 4.5 g IV every 8 hours Duonebs every 4 hours while awake and every 2 hours when necessary. Pulmicort Respules 0.5 mg inhaled twice daily Guaifenesin extended release 12 mg p.o. twice daily Nasal cannula oxygen, titrate to keep pulse ox around 94% (2) Pneumonia: Plan: See above (3) Dyslipidemia: Plan: Continue atorvastatin 80 mg in the morning (4) Coronary artery disease: Plan: CAD/hypertension/history of MS- Continue aspirin, losartan, metoprolol succinate and nitroglycerin sublingual's as needed (5) Hypertension: Plan: See above (6) Myocardial infarction: Plan: See above (7) Impaired fasting glucose: Plan: Impaired fasting glucose- Hold metformin Place on Accu-Cheks before meals and at bedtime with NovoLog coverage per scale Present on Admission?: Yes (8) History of cataract surgery: Plan: The patient will continue to use his eyedrops as directed on labels. He reports that he is due for a follow-up office visit tomorrow, and I asked that he or his call the eye doctor's office to report that he is in the hospital History of Present Illness Chief Complaint: The patient underwent a cataract extraction at [facility] earlier in the day today, was noted to have difficulty with breathing and oxygenation while there, and was referred to the emergency department for further assessment. Primary Care Provider: Arie Mejia MD The patient is a 66-year-old male with a past medical history including morbid obesity, dyslipidemia, impaired fasting glucose, hypertension, Graves' disease, CKD, chronic venous insufficiency, BPH and myocardial infarction. He reports that over the past 2 weeks he has been feeling somewhat short of breath and had a cough productive of yellow sputum. He was noted to have decreased oxygenation during his procedure earlier in the day today, was sent to the emergency department, and found to have hypoxia with pulse ox in 89%. Chest x-ray showed bibasilar pneumonia, left greater than right. In the emergency department patient received Zofran IV, Zosyn IV and DuoNeb. Allergies Allergy/AdvReac Type Severity Reaction Status Date / Time chlorhexidine Allergy Mild RASH Verified 01/18/22 19:29 Home Medications Medication Instructions Recorded Confirmed Type cyanocobalamin (vitamin B-12) 1,000 mcg PO QAM 03/24/20 01/18/22 History 1,000 mcg tablet (Vitamin B-12) nitroglycerin 0.4 mg sublingual 0.4 mg sublingual UD PRN Angina 12/18/20 01/18/22 Rx tablet #25 tabs atorvastatin 80 mg tablet 80 mg PO QAM #30 tabs 02/08/21 01/18/22 Rx losartan 50 mg tablet 50 mg PO QAM #90 tabs 05/10/21 01/18/22 Rx metoprolol succinate 50 mg 25 mg PO QAM #45 tabs 10/18/21 01/18/22 Rx tablet,extended release 24 hr metformin 500 mg tablet,extended 1,000 mg PO BID #360 tabs 01/17/22 01/18/22 Rx release 24 hr aspirin 81 mg tablet,delayed 162 mg PO DAILY 01/18/22 01/18/22 History release prednisolone 1 %-moxifloxacin 0.5 1 drp ophthalmic (eye) QID 01/18/22 01/18/22 History %-bromfenac 0.075 % eye drops susp Past Med/Surg History Medical History (Updated 01/19/22 @ 02:30 by Huan Carrion MD) BPH (benign prostatic hyperplasia) Myocardial infarction (01/08/11) 2010--on aspirin--follows with Dr. Vazquez On anticoagulant therapy 162 mg aspirin daily Prediabetes metformin daily Tubular adenoma of colon Umbilical hernia Surgical History (Updated 01/19/22 @ 02:32 by Huan Carrion MD) History of ankle surgery right ankle fusion--hardware in place History of appendectomy History of cardiac cath 12/2010 @ [facility]--no stents History of colonoscopy with polypectomy History of rotator cuff surgery left History of tooth extraction History of total hip replacement left Status post endovenous radiofrequency ablation of saphenous vein (11/23/16) Family History Father Myocardial infarction Coronary heart disease Mother Diabetes Stroke Sister Diabetes Aunt Colorectal cancer Other No family history of adverse response to anesthesia Denies family history of Ovarian cancer Prostate cancer Breast cancer Social History Smoking Status: Never smoker Second Hand Exposure: Yes (parents smoked); Hx Alcohol Use: Yes Alcohol type: beer and hard liquor Hx Substance Use: No Preferred Language: Yakut Communication Ability: Effective Ostrich Farmer Required: No Beliefs That Will Affect Care: None marital status: Current Living Situation: Spouse current occupational status: retired Feels Safe at Home: Yes Childhood Exposure to Second-Hand Smoke: Yes caffeine: No Dental Care, Regularly: Yes Physical Activity Frequency: Does not Exercise Seatbelt Use: always Sunscreen Use: Yes (when he goes to the beach) Assistive Devices: Contacts and Glasses Review of Systems Review of Systems: The patient denies chest pain, palpitations, lower extremity swelling, sore throat, fevers, chills, sweats, nausea, vomiting, diarrhea , constipation, abdominal pain, pelvic pain, blood in urine or stool, dysuria, urinary frequency or urgency, lightheadedness, dizziness, memory loss, loss of consciousness, rash, abnormal bruising or bleeding, imbalance, focal or generalized weakness, numbness or tingling in arms or legs, generalized arthralgias or myalgias, back or neck pain, or night sweats. The review of systems is otherwise negative other than for that already noted above, and at least 10 systems have been reviewed. Physical Exam Physical Exam: The patient is awake, alert and oriented 3, well developed and well nourished, normocephalic and atraumatic, lying in bed and in no acute distress. HEENT--PERRL, EOMI, mucous membranes and oropharynx dry. Neck--supple. No JVD. No bruits. Thyroid normal, trachea midline, no adenopathy. Heart--normal S1 and S2. No murmurs, rubs or gallops. Lungs--clear bilaterally, no respiratory distress, no accessory muscle use. Abdomen--normal bowel sounds and soft. Nontender. Nondistended. Morbidly obese Extremities--no cyanosis or clubbing. No edema. Dermatologic--normal skin turgor, normal color, no abnormal lymph nodes, no rash. Neurologic--cranial nerves II through XII grossly intact. Rheumatologic--normal range of motion. Psychiatric--normal affect. Results & Data Results & Data ([facility]) Vital Signs (Past 12 Hours) Vital Signs Temp Pulse Pulse Resp BP BP Pulse Ox 01/18/22 19:41 84 21 122/72 92 01/18/22 18:32 88 15 118/74 89 L 01/18/22 17:18 82 17 92 01/18/22 16:42 01/18/22 16:37 36.6 C 78 17 133/82 93 01/18/22 16:37 01/18/22 16:32 36.6 C 78 17 133/82 92 O2 Del Method O2 Flow Rate 01/18/22 19:41 Oxymask 11 01/18/22 18:32 Nasal Cannula 6 01/18/22 17:18 Oxymask 7 01/18/22 16:42 Nasal Cannula 6 01/18/22 16:37 Oxymask 7 01/18/22 16:37 Oxymask 7 01/18/22 16:32 Oxymask 7 Laboratory Results Laboratory Results WBC 10.39 K/ul (4.8-10.8) 01/18/22 16:40 RBC 5.29 M/uL (4.63-6.08) 01/18/22 16:40 Hgb 15.3 g/dl (14.0-18.0) 01/18/22 16:40 Hct 50.1 % (40.1-51.0) 01/18/22 16:40 MCV 94.7 fL (80.0-100.0) 01/18/22 16:40 MCH 28.9 pg (25.0-34.0) 01/18/22 16:40 MCHC 30.5 g/dL (32.0-36.0) L 01/18/22 16:40 RDW Std Deviation 53.1 fL (36.4-46.3) H 01/18/22 16:40 RDW Coeff of Sara 15.3 % (11.5-14.5) H 01/18/22 16:40 Plt Count 181 K/uL (130-400) 01/18/22 16:40 MPV 11.6 fL (9.4-12.4) 01/18/22 16:40 Immature Gran % (Auto) 0.5 % 01/18/22 16:40 Neut % (Auto) 78.3 % 01/18/22 16:40 Lymph % (Auto) 13.7 % 01/18/22 16:40 [place] % (Auto) 6.7 % 01/18/22 16:40 Eos % (Auto) 0.3 % 01/18/22 16:40 Baso % (Auto) 0.5 % 01/18/22 16:40 Neut # (Auto) 8.14 K/uL (1.4-6.5) H 01/18/22 16:40 Lymph # (Auto) 1.42 K/uL (1.2-3.4) 01/18/22 16:40 [place]lin # (Auto) 0.70 K/uL (0.24-0.82) 01/18/22 16:40 Eos # (Auto) 0.03 K/uL (0-0.50) 01/18/22 16:40 Baso # (Auto) 0.05 K/uL (0-0.2) 01/18/22 16:40 Immature Gran # (Auto) 0.05 K/uL (0.00-0.02) H 01/18/22 16:40 PT 11.7 Seconds (9.0-12.0) 01/18/22 16:40 INR 1.1 (0.9-1.1) 01/18/22 16:40 APTT 24.8 Seconds (21.0-31.0) 01/18/22 16:40 PTT Ratio 0.9 01/18/22 16:40 D-Dimer 440 ug/L FEU (0-500) 01/18/22 16:40 ABG pH 7.30 (7.35-7.45) L 01/18/22 20:46 ABG pCO2 76 mmHg (35-46) H 01/18/22 20:46 ABG pO2 52 mmHg (80-95) L 01/18/22 20:46 ABG HCO3 37 mmol/L (19-24) H 01/18/22 20:46 ABG O2 Saturation 84.4 % (90-95) L 01/18/22 20:46 ABG Base Excess 8.0 mEq/L (-9-1.8) H 01/18/22 20:46 [place] Test Pos (Pos) 01/18/22 20:46 VBG pH 7.25 (7.36-7.41) L 01/18/22 17:54 VBG pCO2 79 mmHg (38-50) H 01/18/22 17:54 VBG pO2 58 mmHg 01/18/22 17:54 VBG HCO3 35 mmol/L 01/18/22 17:54 VBG O2 Saturation 87.6 % 01/18/22 17:54 VBG Base Excess 4.6 mEq/L 01/18/22 17:54 Methemoglobin 0.7 % (0.0-1.5) 01/18/22 17:54 Oxygen Given 30% 01/18/22 20:46 Sodium 140 mmol/L (136-145) 01/18/22 16:40 Potassium 4.2 mmol/L (3.5-5.1) 01/18/22 16:40 Chloride 101 mmol/L (98-107) 01/18/22 16:40 Carbon Dioxide 30 mmol/L (21-32) 01/18/22 16:40 Anion Gap 9 (3-11) 01/18/22 16:40 BUN 16 mg/dl (6-23) 01/18/22 16:40 Creatinine 0.75 mg/dl (0.6-1.4) 01/18/22 16:40 Est Cr Clr Drug Dosing 158.1 ml/min 01/18/22 16:40 Est GFR ( Amer) 110.8 ml/min 01/18/22 16:40 Est GFR (Non-Af Amer) 95.6 ml/min 01/18/22 16:40 BUN/Creatinine Ratio 21.3 (10-20) H 01/18/22 16:40 Glucose 132 mg/dl (70-99(Fasting)) H 01/18/22 16:40 Calcium 9.2 mg/dl (8.5-10.1) 01/18/22 16:40 Magnesium 2.1 mg/dl (1.7-2.4) 01/18/22 16:40 Total Bilirubin 1.0 mg/dl (0.2-1.0) 01/18/22 16:40 AST 22 U/L (13-39) 01/18/22 16:40 ALT 23 U/L (7-52) 01/18/22 16:40 Alkaline Phosphatase 75 U/L (34-104) 01/18/22 16:40 Troponin I High Sens 9.9 pg/ml (0-20) 01/18/22 16:40 B-Natriuretic Peptide 43 pg/ml (0-100) 01/18/22 16:40 Total Protein 7.3 gm/dl (6.0-8.3) 01/18/22 16:40 Albumin 4.2 gm/dl (3.4-5.0) 01/18/22 16:40 Globulin 3.1 gm/dl (2.5-4.0) 01/18/22 16:40 Albumin/Globulin Ratio 1.4 (0.9-2) 01/18/22 16:40 Urine Color Yellow 01/18/22 17:26 Urine Appearance Clear (Clear) 01/18/22 17:26 Urine pH 5.5 (4.5-7.5) 01/18/22 17:26 Ur Specific [place] 1.021 (1.000-1.030) 01/18/22 17:26 Urine Protein Negative (Negative) 01/18/22 17:26 Urine Glucose (UA) Negative (Negative) 01/18/22 17:26 Urine Ketones Negative (Negative) 01/18/22 17:26 Urine Blood Negative (Negative) 01/18/22 17:26 Urine Nitrite Negative (Negative) 01/18/22 17:26 Urine Bilirubin Negative (Negative) 01/18/22 17:26 Urine Urobilinogen Negative (Negative) 01/18/22 17:26 Ur Leukocyte Esterase Negative (Negative) 01/18/22 17:26 SARS-CoV-2 (PCR) NEGATIVE (Negative) 01/18/22 17:26 Influenza Type A (PCR) Negative (Neg) 01/18/22 17:26 Influenza Type B (PCR) Negative (Neg) 01/18/22 17:26 RSV (RT-PCR) Negative (Neg) 01/18/22 17:26 Impressions Chest X-Ray 01/18/22 17:06 SINGLE VIEW CHEST CLINICAL HISTORY: Dyspnea. FINDINGS: An AP, portable, upright chest radiograph is compared to study dated 01/06/2011. The heart is enlarged noting atherosclerotic calcification of the thoracic aorta. There is pulmonary vascular congestion. There are bibasilar opacities, left greater than right. No large pleural effusion or pneumothorax is seen. The skeletal structures are osteopenic. The bony thorax is grossly intact. IMPRESSION: 1. Cardiomegaly with pulmonary vascular congestion. 2. There are left greater than right bibasilar opacities, likely representing atelectasis. Correlate clinically for evidence of an infectious/inflammatory pneumonitis. Radiographic follow-up to resolution is recommended. ACT 112: Negative or not required by law. Electronically signed by: John Rivers M.D. 01/18/2022 7:07 PM Code Status & VTE Plan Code Status Full code VTE Prophylaxis Plan VTE Prophylaxis will be ordered: Yes PG Care Time/CCT Total # of Minutes Spent Total Time Spent with Patient: Total time spent is greater than 50% in coordination of care (as documented) at patient's floor/unit and/or counseling patient: Coding Level of Care Code 01665 Initial Inpt Care Lvl 3 Diagnoses Acute respiratory failure with hypoxia J96.01 Pneumonia J18.9 Laterality: bilateral Lung location: unspecified part of lung Pneumonia type: due to unspecified organism Dyslipidemia E78.5 Coronary artery disease I25.10 Hypertension I10 Myocardial infarction I21.9 Impaired fasting glucose R73.01 History of cataract surgery Z98.49 (1) Pneumonia Laterality: bilateral Lung location: unspecified part of lung Pneumonia type: due to unspecified organism Qualified Code(s): J18.9 - Pneumonia, unspecified organism
[2022-01-18 20:55] LABS: HCO3 ABG 37 mmol/L (19-24); Oxygen Saturation ABG 84.4 % (90-95); PCO2 ABG 76 mmHg (35-46); PO2 ABG 52 mmHg (80-95)
[2022-01-18 20:56] LABS: Allen Test Pos (Pos)
[2022-01-18] MEDS ORDERED: ACETAMINOPHEN 325 MG TAB ONE (21:39)
[2022-01-19] MEDS ORDERED: [UNRECOGNIZED DRUG - OTHER] OP SCH (00:56)
[2022-01-19] MEDS ORDERED: GLUCOSE 40% GEL 15 GM TUBE PO PRN (00:56)
[2022-01-19] MEDS ORDERED: ONDANSETRON INJ 2 MG/ML 2 ML VIAL IV PRN (00:56)
[2022-01-19] MEDS ORDERED: GLUCAGON FOR INJ 1 MG VIAL SQ PRN (00:56)
[2022-01-19] MEDS ORDERED: NITROGLYCERIN SL 0.4 MG/TAB TAB SL PRN (00:56)
[2022-01-19] MEDS ORDERED: GLUCOSE 10 TAB/TUBE PO PRN (00:56)
[2022-01-19] MEDS ORDERED: CARBOHYDRATES FOR HYPOGLYCEMIA PO PRN (00:56)
[2022-01-19] MEDS ORDERED: DEXTROSE 50% 50 ML SYRINGE IV PRN (00:56)
[2022-01-19] MEDS: PIPERACILLIN/TAZOBACTAM 4.5 GM in DEXTROSE 5% 100 ML IV SCH ×3 (03:49→21:25)
[2022-01-19] MEDS: guaiFENesin 600 MG TABCR PO SCH ×3 (03:49→21:25)
[2022-01-19] MEDS: INSULIN ASPART PER UNIT SC SCH ×5 (04:08→21:30)
[2022-01-19] MEDS ORDERED: ALBUT/IPRATROP 3MG/0.5MG NEB 3 ML VIAL NEB SCH (07:00)
[2022-01-19] MEDS: BUDESONIDE 0.5 MG/2 ML VIAL (PULMICORT) NEB SCH ×2 (07:09→19:40)
[2022-01-19 08:02] LABS: Basophils # (auto) 0.03 K/uL (0-0.2); Basophils % (auto) 0.2 %; Hemoglobin 15.6 g/dl (14.0-18.0); Immature Granulocytes # (auto) 0.07 K/uL (0.00-0.02); Immature Granulocytes % (auto) 0.5 %; Lymphocytes # (auto) 1.39 K/uL (1.2-3.4); Lymphocytes % (auto) 9.3 %; Mean Corpuscular Hemoglobin 28.8 pg (25.0-34.0); Mean Corpuscular Hgb Conc 30.6 g/dL (32.0-36.0); Mean Corpuscular Volume 94.3 fL (80.0-100.0); Mean Platelet Volume 11.3 fL (9.4-12.4); Monocytes # (auto) 1.05 K/uL (0.24-0.82); Neutrophils # (auto) 12.38 K/uL (1.4-6.5); Platelet Count 188 K/uL (130-400); RDW Coefficient of Variation 15.4 % (11.5-14.5); RDW Standard Deviation 52.9 fL (36.4-46.3); Red Blood Count 5.41 M/uL (4.63-6.08); White Blood Count 14.92 K/ul (4.8-10.8)
[2022-01-19 08:38] LABS: Alanine Aminotransferase 20 U/L (7-52); Albumin Globulin Ratio 1.4 (0.9-2); Albumin Level 4.3 gm/dl (3.4-5.0); Alkaline Phosphatase 72 U/L (34-104); Anion Gap 3 (3-11); BUN Creatinine Ratio 18.3 (10-20); Blood Urea Nitrogen 15 mg/dl (6-23); Calcium 9.2 mg/dl (8.5-10.1); Carbon Dioxide 36 mmol/L (21-32); Chloride 99 mmol/L (98-107); Creatinine Clr Calc Pharmacy 144.6 ml/min; Est GFR (African American) 106.8 ml/min; Est GFR (Non-African American) 92.1 ml/min; Globulin 3.1 gm/dl (2.5-4.0); Glucose 136 mg/dl (70-99(Fasting)); Magnesium 2.4 mg/dl (1.7-2.4); Sodium 138 mmol/L (136-145); Total Protein 7.4 gm/dl (6.0-8.3)
[2022-01-19] MEDS ORDERED: ALBUT/IPRATROP 3MG/0.5MG NEB 3 ML VIAL NEB PRN (08:39)
--- NOTE | 2022-01-19 09:00 | Hospitalist Progress Note ---
Date of Service January 19, 2022 Assessment & Plan (1) Acute respiratory failure with hypoxia: Plan: Attending: Dr. Mejia Patient admitted yesterday for acute hypoxia Chest x-ray with question of bilateral opacities versus severe atelectasis No prior pulmonary history Continue to treat with IV antibiotics (day #2 Zosyn) Check procalcitonin Out of bed to chair as tolerated Incentive spirometry every hour while awake Check CT chest without contrast due to profound hypoxia Titrate supplemental oxygen to greater than 90% as tolerated Hypertonic saline nebs every 12 hours, flutter valve every hour, incentive spirometry every hour while awake, continue Mucinex 1200 mg p.o. twice daily Repeat chest x-ray tomorrow morning Ambulate in hallways as tolerated (2) Morbid obesity: Plan: BMI 44.6 kg/m Encouraged to increase activity and calorie reduction Patient reports 20 to 30 pound weight gain in the last 2 years (3) Hypertension: Plan: Continue Toprol XL and losartan No chest pain or tightness. Continue on telemetry Continue outpatient management with PCP (4) Graves disease: Plan: TSH 0.85 Continue outpatient management with PCP (5) Coronary artery disease: Plan: Continue Metoprolol Succinate ASA daily Follows with Dr. Vazquez Previous history of [place] No acute issues at this time. (6) DVT prophylaxis: (7) History of cataract surgery: Plan: POD #1 OS Performed at [facility] No complications with procedure yesterday Continue with ophthalmic drops as prescribed Outpatient follow-up with ophthalmology the day of or after discharge Admission and Anticipated Discharge Date Admission Date: January 18, 2022 Subjective Attending: Dr. Mejia Is a 66-year-old male that reports 2 weeks of shortness of breath and cough productive of yellow sputum. He presented to [facility] yesterday for cataract surgery and during the procedure was found to be hypoxic. Referred to the emergency department where chest x-ray showed bibasilar pneumonia. Patient was started on IV antibiotics as well as scheduled duo nebs. Blood cultures x2 are pending. White count on admission 10.39. Today WBC is 14.92. I do not see that the patient has received any steroids. Patient currently 100% SaO2 with Oxymask at 10 L/min. Screening for COVID, influenza A and B, and RSV all negative. No acute renal failure. We will add procalcitonin to a.m. labs. Will order incentive spirometry for bibasilar atelectasis on chest x-ray. Patient continues with shortness of breath when ambulating. He continues to require supplemental oxygen to maintain SaO2 greater than 90%. Minimal sputum production. No fever or chills. No chest pain or tightness. No appreciation of palpitations. No unusual edema of the lower extremities. No other acute complaints. Review of Systems Review of Systems: A total of 10 systems was reviewed and is negative other than as listed in the HPI Physical Exam Physical Exam: GENERAL : No acute distress EYES: No icterus, gaze conjugate NOSE: No evidence of epistaxis MOUTH: No lesions or candidiasis NECK: Supple LUNGS: Decreased breath sounds bilaterally. Left worse than right. Faint expiratory wheezes in the upper posterior elizabeth. HEART: Regular, rate controlled ABDOMEN: Soft, NT, ND, BS Present EXTREMITIES: No LE edema, pedal pulses intact NEURO: A&OX3 Results & Data Results & Data ([facility]) Vital Signs (Past 12 Hours) Vital Signs Temp Pulse Pulse Resp BP BP Pulse Ox 01/19/22 07:00 36.8 C 87 20 125/83 93 01/19/22 07:09 76 19 100 01/19/22 06:17 82 16 121/79 95 01/19/22 04:09 90 20 127/84 91 01/19/22 01:04 01/19/22 01:02 95 H 17 145/91 H 94 01/18/22 22:30 94 H 21 01/18/22 22:30 147/89 H 01/18/22 22:20 88 17 93 01/18/22 22:10 92 H 16 93 01/18/22 22:00 89 21 93 01/18/22 22:00 131/90 01/18/22 21:50 95 H 14 93 01/18/22 21:40 88 18 92 01/18/22 21:30 82 21 93 01/18/22 21:30 128/79 01/18/22 21:42 94 01/18/22 21:20 82 24 93 01/18/22 21:10 92 H 15 93 01/18/22 21:01 86 18 01/18/22 21:01 121/82 01/18/22 21:00 85 15 Pulse Ox O2 Del Method O2 Del Method O2 Flow Rate O2 Flow Rate 01/19/22 07:00 Oxymask 11 01/19/22 07:09 Oxymask 10 01/19/22 06:17 Oxymask 11 01/19/22 04:09 Oxymask 11 01/19/22 01:04 94 Oxymask 11 01/19/22 01:02 Oxymask 11 01/18/22 22:30 Oxymask 11 01/18/22 22:30 Oxymask 11 01/18/22 22:20 Oxymask 11 01/18/22 22:10 Oxymask 11 01/18/22 22:00 Oxymask 11 01/18/22 22:00 Oxymask 11 01/18/22 21:50 Oxymask 11 01/18/22 21:40 Oxymask 11 01/18/22 21:30 Oxymask 11 01/18/22 21:30 01/18/22 21:42 Oxymask 11 01/18/22 21:20 Nasal Cannula 11 01/18/22 21:10 Nasal Cannula 11 01/18/22 21:01 Nasal Cannula 11 01/18/22 21:01 Nasal Cannula 11 01/18/22 21:00 Nasal Cannula 11 Critical Care Results & Data Vital Signs (Past 12 Hours) Vital Signs Temp Pulse Pulse Resp BP BP Pulse Ox 01/19/22 07:00 36.8 C 87 20 125/83 93 01/19/22 07:09 76 19 100 01/19/22 06:17 82 16 121/79 95 01/19/22 04:09 90 20 127/84 91 01/19/22 01:04 01/19/22 01:02 95 H 17 145/91 H 94 01/18/22 22:30 94 H 21 01/18/22 22:30 147/89 H 01/18/22 22:20 88 17 93 01/18/22 22:10 92 H 16 93 01/18/22 22:00 89 21 93 01/18/22 22:00 131/90 01/18/22 21:50 95 H 14 93 01/18/22 21:40 88 18 92 01/18/22 21:30 82 21 93 01/18/22 21:30 128/79 01/18/22 21:42 94 01/18/22 21:20 82 24 93 01/18/22 21:10 92 H 15 93 Pulse Ox O2 Del Method O2 Del Method O2 Flow Rate O2 Flow Rate 01/19/22 07:00 Oxymask 11 01/19/22 07:09 Oxymask 10 01/19/22 06:17 Oxymask 11 01/19/22 04:09 Oxymask 11 01/19/22 01:04 94 Oxymask 11 01/19/22 01:02 Oxymask 11 01/18/22 22:30 Oxymask 11 01/18/22 22:30 Oxymask 11 01/18/22 22:20 Oxymask 11 01/18/22 22:10 Oxymask 11 01/18/22 22:00 Oxymask 11 01/18/22 22:00 Oxymask 11 01/18/22 21:50 Oxymask 11 01/18/22 21:40 Oxymask 11 01/18/22 21:30 Oxymask 11 01/18/22 21:30 01/18/22 21:42 Oxymask 11 01/18/22 21:20 Nasal Cannula 11 01/18/22 21:10 Nasal Cannula 11 Lab & Micro Results (Past 24 Hours) RBC 5.41 M/uL (4.63-6.08) 01/19/22 WBC 14.92 K/ul (4.8-10.8) H 01/19/22 Hgb 15.6 g/dl (14.0-18.0) 01/19/22 Hct 51.0 % (40.1-51.0) 01/19/22 MCV 94.3 fL (80.0-100.0) 01/19/22 MCH 28.8 pg (25.0-34.0) 01/19/22 MCHC 30.6 g/dL (32.0-36.0) L 01/19/22 RDW Standard Deviation 52.9 fL (36.4-46.3) H 01/19/22 RDW Coefficient of Variation 15.4 % (11.5-14.5) H 01/19/22 Plt Count 188 K/uL (130-400) 01/19/22 MPV 11.3 fL (9.4-12.4) 01/19/22 Neutrophils (%) (Auto) 83.0 % 01/19/22 Lymphocytes (%) (Auto) 9.3 % 01/19/22 Monocytes # (Auto) 1.05 K/uL (0.24-0.82) H 01/19/22 Eosinophils # (Auto) 0.00 K/uL (0-0.50) 01/19/22 Immature Granulocyte % (Auto) 0.5 % 01/19/22 Neutrophils # (Auto) 12.38 K/uL (1.4-6.5) H 01/19/22 Lymphocytes # (Auto) 1.39 K/uL (1.2-3.4) 01/19/22 Monocytes # (Auto) 1.05 K/uL (0.24-0.82) H 01/19/22 Eosinophils # (Auto) 0.00 K/uL (0-0.50) 01/19/22 Basophils # (Auto) 0.03 K/uL (0-0.2) 01/19/22 Immature Granulocyte # (Auto) 0.07 K/uL (0.00-0.02) H 01/19 Na 138 mmol/L (136-145) 01/19/22 K 4.4 mmol/L (3.5-5.1) 01/19/22 Cl 99 mmol/L (98-107) 01/19/22 CO2 36 mmol/L (21-32) H 01/19/22 Anion Gap 3 (3-11) 01/19/22 BUN 15 mg/dl (6-23) 01/19/22 Creatinine 0.82 mg/dl (0.6-1.4) 01/19/22 Estimated GFR ( Amer) 106.8 ml/min 01/19/22 Estimated GFR (Non-Af Amer) 92.1 ml/min 01/19/22 BUN/Creatinine Ratio 18.3 (10-20) 01/19/22 Glu 136 mg/dl (70-99(Fasting)) H 01/19/22 Ca 9.2 mg/dl (8.5-10.1) 01/19/22 Total Bilirubin 1.0 mg/dl (0.2-1.0) 01/19/22 AST 17 U/L (13-39) 01/19/22 ALT 20 U/L (7-52) 01/19/22 Alkaline Phosphatase 72 U/L (34-104) 01/19/22 TP 7.4 gm/dl (6.0-8.3) 01/19/22 Albumin 4.3 gm/dl (3.4-5.0) 01/19/22 Globulin 3.1 gm/dl (2.5-4.0) 01/19/22 Albumin/Globulin Ratio 1.4 (0.9-2) 01/19/22 Mg 2.4 mg/dl (1.7-2.4) 01/19/22 07:35 Calcium Level 9.2 mg/dl (8.5-10.1) 01/19/22 07:35 Diagnostic Findings (Past 24 Hours) Chest X-Ray 01/18/22 17:06 SINGLE VIEW CHEST CLINICAL HISTORY: Dyspnea. FINDINGS: An AP, portable, upright chest radiograph is compared to study dated 01/06/2011. The heart is enlarged noting atherosclerotic calcification of the thoracic aorta. There is pulmonary vascular congestion. There are bibasilar opa cities, left greater than right. No large pleural effusion or pneumothorax is seen. The skeletal structures are osteopenic. The bony thorax is grossly intact. IMPRESSION: 1. Cardiomegaly with pulmonary vascular congestion. 2. There are left greater than right bibasilar opacities, likely representing atelectasis. Correlate clinically for evidence of an infectious/inflammatory pne umonitis. Radiographic follow-up to resolution is recommended. ACT 112: Negative or not required by law. Electronically signed by: John Rivers M.D. 01/18/2022 7:07 PM I & O Totals 24 Hours 01/18/22 01/19/22 01/20/22 06:59 06:59 06:59 Intake Total 120 / 120 120 / 120 Balance 120 / 120 120 / 120 Cumulative 01/18/22 16:09 thru 01/19/22 07:55 Intake Total 240 Balance 240 RT Ventilator Mngmt (Last Documented) Ventilator Ordered Settings Respiratory Rate 19 01/19/22 07:09 Ventilator - PT Measurements Respiratory Rate 19 PG Care Time/CCT Total # of Minutes Spent Total Time Spent with Patient: Total time spent is greater than 50% in coordination of care (as documented) at patient's floor/unit and/or counseling patient: 40 minutes including discussion with patient and at bedside on 3 separate occasions. Also discussion with anesthesiologist from surgical case yesterday. Coding Level of Care Code 22813 Subseq Hosp Care Lvl 3 Diagnoses Acute respiratory failure with hypoxia J96.01 Morbid obesity E66.01 Hypertension I10 Graves disease E05.00 Coronary artery disease I25.10 DVT prophylaxis Z29.9 History of cataract surgery Z98.49
[2022-01-19 09:02] LABS: Estimated Average Glucose 143 mg/dl; Hemoglobin A1C 6.6 % (4.5-5.6)
[2022-01-19 09:55] LABS: Potassium 4.4 mmol/L (3.5-5.1)
--- NOTE | 2022-01-19 09:59 | XRay Report ---
XR chest 1V portable HISTORY: 66 years-old Male Hypoxia with B/L PNA acute hypoxia COMPARISON: Chest radiograph 01/18/2022 TECHNIQUE: Portable AP view of the chest FINDINGS: The cardiac silhouette is enlarged. No pneumothorax or overt pulmonary edema. Blunting of the costoph renic angles with hypoinflation and probable mild bibasilar atelectasis. Improved aeration of the gabriel g bases. IMPRESSION: 1. Cardiomegaly without pulmonary edema. 2. Hypoinflation with improved aeration of the lung bases. ACT 112: Negative or not required by law. The above report was generated using voice recognition software. It may contain grammatical, syntax o r spelling errors. Electronically signed by: Isacc Mosqueda M.D. 01/19/2022 9:58 AM
[2022-01-19] MEDS: ASPIRIN 81 MG ECTAB PO SCH (10:00)
[2022-01-19] MEDS: METOPROLOL SUCC 25MG EXT REL TAB PO SCH (10:00)
[2022-01-19] MEDS: ATORVASTATIN 40 MG TAB PO SCH (10:00)
[2022-01-19] MEDS: CYANOCOBALAMIN (B-12) 500 MCG TABLET PO SCH (10:00)
[2022-01-19] MEDS: LOSARTAN POTASSIUM 50 MG TAB PO SCH (10:00)
--- NOTE | 2022-01-19 10:11 | Electrocardiogram Report ---
Test Reason : Blood Pressure : / mmHG Vent. Rate : 086 BPM Atrial Rate : 086 BPM P-R Int : 154 ms QRS Dur : 102 ms QT Int : 402 ms P-R-T Axes : 038 -15 039 degrees QTc Int : 481 ms Sinus rhythm with occasional Premature ventricular complexes and Premature atrial complexes possible Inferior infarct (cited on or before 08-JAN-2011) Abnormal ECG When compared with ECG of 25-JAN-2016 10:39, Premature ventricular complexes are now Present Premature atrial complexes are now Present QT has lengthened Confirmed by Arie Germain ([id number]) on 01/19/2022 10:11:13 AM Referred By: REFERRED SELF Confirmed By:Toni Germain
[2022-01-19] MEDS: ACETAMINOPHEN 325 MG TAB PO PRN ×2 (10:50→18:28)
--- NOTE | 2022-01-19 13:41 | Electrocardiogram Report ---
Test Reason : Blood Pressure : / mmHG Vent. Rate : 113 BPM Atrial Rate : 113 BPM P-R Int : 186 ms QRS Dur : 104 ms QT Int : 342 ms P-R-T Axes : -03 -18 040 degrees QTc Int : 469 ms Sinus tachycardia with Premature supraventricular complexes possible Inferior infarct (cited on or before 08-JAN-2011) Anterolateral infarct , age undetermined Abnormal ECG When compared with ECG of 18-JAN-2022 16:28, Premature ventricular complexes are no longer Present Anterolateral infarct is now Present T wave amplitude has decreased in Anterolateral leads Confirmed by Arie Germain ([id number]) on 01/19/2022 1:41:14 PM Referred By: REFERRED SELF Confirmed By:Toni Germain
--- NOTE | 2022-01-19 15:24 | CT Scan Report ---
CT chest diagnostic wo con CT DOSE: 990.70 mGy.cm HISTORY: Shortness of breath. New onset hypoxia TECHNIQUE: Multiaxial CT images of the chest were performed without contrast. A dose lowering techni que was utilized adhering to the principles of ALARA. COMPARISON: Chest x-ray 01/19/2022. FINDINGS: There is mild respiratory motion artifact. The central airways are patent. No pneumothorax. There is an irregular 13 mm groundglass nodule within the left upper lobe on image 120. There is a 5 mm groundglass nodule within the left upper lobe on image 105. A few small nodules within the right middle lobe with the largest on image 110 measuring 3 mm. Linear and patchy airspace consolidation wi thin the lung bases most pronounced within the left lower lobe. There are associated air bronchograms . This could represent atelectasis or pneumonia. Limited views of the abdomen demonstrate a normal li wiliam, spleen, adrenal glands. The heart is mildly enlarged. No pericardial effusion. Mild to moderate calcified plaque within the coronary arteries and thoracic aorta. Normal esophagus. Aneurysmal dilata tion of the ascending thoracic aorta and aortic root measuring up to 5.3 cm in diameter. No definite mediastinal or hilar lymphadenopathy. IMPRESSION: 1. Linear and patchy airspace consolidation within the lung bases most pronounced within the left low er lobe. This could represent atelectasis or pneumonia. 2. A 13 mm groundglass nodule within the left upper lobe. This is nonspecific but could represent a p rimary bronchogenic malignancy along the adenocarcinoma spectrum. Therefore, [address] follow- up recommended. 3. A few additional scattered subcentimeter pulmonary nodules also bear watching future examinations. 4. Cardiomegaly. 5. The ascending thoracic aorta and aortic root measures up to 5.3 cm in diameter. ACT 112: Positive. There are findings on this exam that require communication between the performing entity and the patient following Patient Test Result Information Act ([place] Act 112) guidelines. Electronically signed by: Adan Romero M.D. 01/19/2022 3:22 PM
[2022-01-19 18:09] LABS: Adenovirus PCR Not Detected (NotDetected); Bordetella parapertussis PCR Not Detected (NotDetected); Bordetella pertussis PCR Not Detected (NotDetected); Chlamydia pneumoniae PCR Not Detected (NotDetected); Coronavirus 229E PCR Not Detected (NotDetected); Coronavirus CoV-2 (COVID19)PCR Not Detected (NotDetected); Coronavirus HKU1 PCR Not Detected (NotDetected); Coronavirus NL63 PCR Not Detected (NotDetected); Coronavirus OC43PCR Not Detected (NotDetected); Human Metapneumovirus PCR Not Detected (NotDetected); Influenza A PCR Not Detected (NotDetected); Influenza B PCR Not Detected (NotDetected); Mycoplasma pneumoniae PCR Not Detected (NotDetected); Parainfluenza Virus 1 PCR Not Detected (NotDetected); Parainfluenza Virus 2 PCR Not Detected (NotDetected); Parainfluenza Virus 3 PCR Not Detected (NotDetected); Parainfluenza Virus 4 PCR Not Detected (NotDetected); Respiratory Syncytial VirusPCR Not Detected (NotDetected); Rhinovirus/Enterovirus PCR Not Detected (NotDetected)
[2022-01-19] MEDS: SODIUM CHLOR 7% 4 ML NEB NEB SCH (19:40)
[2022-01-20] MEDS: PIPERACILLIN/TAZOBACTAM 4.5 GM in DEXTROSE 5% 100 ML IV SCH ×3 (03:14→20:13)
[2022-01-20 06:44] LABS: Basophils # (auto) 0.03 K/uL (0-0.2); Basophils % (auto) 0.3 %; Eosinophils # (auto) 0.01 K/uL (0-0.50); Eosinophils % (auto) 0.1 %; Hematocrit (blood only) 48.8 % (40.1-51.0); Hemoglobin 14.8 g/dl (14.0-18.0); Immature Granulocytes # (auto) 0.04 K/uL (0.00-0.02); Immature Granulocytes % (auto) 0.4 %; Lymphocytes # (auto) 1.16 K/uL (1.2-3.4); Lymphocytes % (auto) 12.9 %; Mean Corpuscular Hemoglobin 29.2 pg (25.0-34.0); Mean Corpuscular Hgb Conc 30.3 g/dL (32.0-36.0); Mean Corpuscular Volume 96.3 fL (80.0-100.0); Mean Platelet Volume 11.4 fL (9.4-12.4); Monocytes # (auto) 0.79 K/uL (0.24-0.82); Monocytes % (auto) 8.8 %; Neutrophils # (auto) 6.98 K/uL (1.4-6.5); Neutrophils % (auto) 77.5 %; Platelet Count 169 K/uL (130-400); RDW Coefficient of Variation 15.4 % (11.5-14.5); RDW Standard Deviation 54.8 fL (36.4-46.3); Red Blood Count 5.07 M/uL (4.63-6.08); White Blood Count 9.01 K/ul (4.8-10.8)
[2022-01-20] MEDS: SODIUM CHLOR 7% 4 ML NEB NEB SCH ×2 (07:17→19:37)
[2022-01-20] MEDS: BUDESONIDE 0.5 MG/2 ML VIAL (PULMICORT) NEB SCH ×2 (07:17→19:37)
[2022-01-20 07:27] LABS: Albumin Globulin Ratio 1.4 (0.9-2); Albumin Level 4.1 gm/dl (3.4-5.0); BUN Creatinine Ratio 20.5 (10-20); Creatinine Clr Calc Pharmacy 161.1 ml/min; Est GFR (Non-African American) 96.7 ml/min; Globulin 2.9 gm/dl (2.5-4.0); Magnesium 2.2 mg/dl (1.7-2.4); Potassium 4.5 mmol/L (3.5-5.1)
[2022-01-20] MEDS: INSULIN ASPART PER UNIT SC SCH ×4 (08:17→20:24)
[2022-01-20] MEDS: ATORVASTATIN 40 MG TAB PO SCH (08:17)
[2022-01-20] MEDS: CYANOCOBALAMIN (B-12) 500 MCG TABLET PO SCH (08:18)
[2022-01-20] MEDS: LOSARTAN POTASSIUM 50 MG TAB PO SCH (08:18)
[2022-01-20] MEDS: ASPIRIN 81 MG ECTAB PO SCH (08:18)
[2022-01-20] MEDS: METOPROLOL SUCC 25MG EXT REL TAB PO SCH (08:18)
[2022-01-20] MEDS: guaiFENesin 600 MG TABCR PO SCH ×2 (08:18→20:13)
[2022-01-20] MEDS: PREDNISOLONE OP SCH ×4 (08:19→20:15)
[2022-01-20] MEDS: BROMFENAC OP SCH ×4 (08:19→20:15)
[2022-01-20] MEDS: MOXIFLOXACIN OP SCH ×4 (08:19→20:15)
--- NOTE | 2022-01-20 09:26 | XRay Report ---
XR chest 1V portable HISTORY: 66 years-old Male Worsening hypoxia acute hypoxia COMPARISON: Chest CT and chest radiograph 01/19/2022 TECHNIQUE: AP view of the chest FINDINGS: Cardiac silhouette is enlarged. Atherosclerosis of the thoracic aorta. No pneumothorax. Mild somewhat linear bibasilar consolidation. Degenerative changes of the shoulders and spine. IMPRESSION: 1. Persistent bibasilar mostly linear consolidation suggestive of atelectasis. Pneumonia could appear similarly. 2. Cardiomegaly without pulmonary edema. ACT 112: Negative or not required by law. The above report was generated using voice recognition software. It may contain grammatical, syntax o r spelling errors. Electronically signed by: Isacc Mosqueda M.D. 01/20/2022 9:24 AM
[2022-01-20 09:37] LABS: HCO3 ABG 39 mmol/L (19-24); Oxygen Saturation ABG 96.9 % (90-95); PCO2 ABG 62 mmHg (35-46); PO2 ABG 74 mmHg (80-95); pH ABG 7.41 (7.35-7.45)
[2022-01-20 09:38] LABS: Allen Test Pos (Pos)
--- NOTE | 2022-01-20 17:55 | Hospitalist Progress Note ---
Date of Service January 20, 2022 Assessment & Plan (1) Acute respiratory failure with hypoxia: Plan: Attending: Dr. Salvador Patient admitted for acute hypoxia and hypercapnia Chest x-ray with question of bilateral opacities versus severe atelectasis Repeat chest x-ray today with minimal improvement bilaterally No prior pulmonary history Continue to treat with IV antibiotics (day #3 Zosyn) procalcitonin is negative Bio fire is negative Blood cultures x2 negative Out of bed to chair as tolerated Incentive spirometry every hour while awake Check CT chest with dense bilateral consolidation versus atelectasis at the bases. 1.3 cm pulmonary nodule identified incidentally Titrate supplemental oxygen to greater than 90% as tolerated Hypertonic saline nebs every 12 hours, flutter valve every hour, incentive spirometry every hour while awake, continue Mucinex 1200 mg p.o. twice daily We will initiate BiPAP therapy at 14/7. Patient should have outpatient polysomnography exam as he most likely has obstructive sleep apnea. Check Legionella Repeat chest x-ray tomorrow morning Continue supportive care Ambulate in hallways as tolerated (2) Morbid obesity: Plan: BMI 44.6 kg/m Encouraged to increase activity and calorie reduction Patient reports 20 to 30 pound weight gain in the last 2 years (3) Hypertension: Plan: Continue Toprol XL and losartan No chest pain or tightness. Continue on telemetry Continue outpatient management with PCP (4) Graves disease: Plan: TSH 0.85 Continue outpatient management with PCP (5) Coronary artery disease: Plan: Continue Metoprolol Succinate ASA daily Follows with Dr. Vazquez Previous history of MS No acute issues at this time. (6) DVT prophylaxis: Plan: Aspirin 162 mg p.o. daily. No other chemical prophylaxis secondary to recent surgery Ambulate in hallways as tolerated (7) History of cataract surgery: Plan: POD #2 OS Performed at [facility] No complications with procedure yesterday Continue with ophthalmic drops as prescribed Outpatient follow-up with ophthalmology the day of or after discharge Admission and Anticipated Discharge Date Admission Date: January 18, 2022 Supervising Physician Co-Signing Physician Notes Attending Attestation - Chart reviewed, care plan d/w ANDRY Archer. I agree w/ the ramirez components of his documentation. Jason Salvador MD Subjective Attending: Dr. Salvador Minimal clearance of sputum and spite of aggressive pulmonary toileting. Patient continues to be hypoxic. Was on 15 L via oxime mask this morning. Throughout the morning, I was able to successfully titrate down to 8 L by Oxymask. BiPAP initiated today. Continues with aggressive pulmonary toilet. Discussed inability to discharge patient due to high oxygen requirements. Patient understood Patient denies any shortness of breath with oxygen in place. He does get tired. Shortness of breath with exertion. Minimal sputum output. Minimal cough with hypertonic saline. Patient denies hemoptysis. No chest pain or tightness. Review of Systems Review of Systems: A total of 10 systems was reviewed and is negative other than as listed in the HPI Physical Exam Physical Exam: GENERAL : No acute distress EYES: No icterus, gaze conjugate NOSE: No evidence of epistaxis MOUTH: No lesions or candidiasis NECK: Supple LUNGS: Decreased breath sounds at the bilateral bases. Patient has some fine scattered wheezes. No gross rales or rhonchi appreciated HEART: Regular, rate controlled ABDOMEN: Soft, NT, ND, BS Present EXTREMITIES: No LE edema, pedal pulses intact NEURO: A&OX3 Results & Data Results & Data ([facility]) Vital Signs (Past 12 Hours) Vital Signs Temp Pulse Pulse Resp BP BP Pulse Ox 01/20/22 15:45 37.3 C 73 22 141/91 H 94 01/20/22 12:48 81 30 H 96 01/20/22 12:30 37.0 C 80 22 158/109 H 93 01/20/22 08:00 01/20/22 07:18 85 20 93 01/20/22 07:10 37.0 C 74 24 133/88 92 O2 Del Method O2 Flow Rate FiO2 01/20/22 15:45 Oxymask 11 01/20/22 12:48 60 01/20/22 12:30 Oxymask 15 01/20/22 08:00 Oxymask 15 01/20/22 07:18 Oxymask 15 01/20/22 07:10 Oxymask 15 Diagnostic Findings XR chest 1V portable 01/20/2022 HISTORY: 66 years-old Male Worsening hypoxia acute hypoxia COMPARISON: Chest CT and chest radiograph 01/19/2022 TECHNIQUE: AP view of the chest FINDINGS: Cardiac silhouette is enlarged. Atherosclerosis of the thoracic aorta. No pneumothorax. Mild somewhat linear bibasilar consolidation. Degenerative changes of the shoulders and spine. IMPRESSION: 1. Persistent bibasilar mostly linear consolidation suggestive of atelectasis. Pneumonia could appear similarly. 2. Cardiomegaly without pulmonary edema. ACT 112: Negative or not required by law. The above report was generated using voice recognition software. It may contain grammatical, syntax or spelling errors. Electronically signed by: Isacc Mosqueda M.D. 01/20/2022 9:24 AM Critical Care Results & Data Vital Signs (Past 12 Hours) Vital Signs Temp Pulse Pulse Resp BP BP Pulse Ox 01/20/22 15:45 37.3 C 73 22 141/91 H 94 01/20/22 12:48 81 30 H 96 01/20/22 12:30 37.0 C 80 22 158/109 H 93 01/20/22 08:00 01/20/22 07:18 85 20 93 01/20/22 07:10 37.0 C 74 24 133/88 92 O2 Del Method O2 Flow Rate FiO2 01/20/22 15:45 Oxymask 11 01/20/22 12:48 60 01/20/22 12:30 Oxymask 15 01/20/22 08:00 Oxymask 15 01/20/22 07:18 Oxymask 15 01/20/22 07:10 Oxymask 15 Lab & Micro Results (Past 24 Hours) RBC 5.41 M/uL (4.63-6.08) 01/25/22 WBC 6.64 K/ul (4.8-10.8) 01/25/22 Hgb 15.6 g/dl (14.0-18.0) 01/25/22 Hct 49.9 % (40.1-51.0) 01/25/22 MCV 92.2 fL (80.0-100.0) 01/25/22 MCH 28.8 pg (25.0-34.0) 01/25/22 MCHC 31.3 g/dL (32.0-36.0) L 01/25/22 RDW Standard Deviation 51.5 fL (36.4-46.3) H 01/25/22 RDW Coefficient of Variation 15.1 % (11.5-14.5) H 01/25/22 Plt Count 159 K/uL (130-400) 01/25/22 MPV 11.5 fL (9.4-12.4) 01/25/22 Na 139 mmol/L (136-145) 01/25/22 K 4.0 mmol/L (3.5-5.1) 01/25/22 Cl 100 mmol/L (98-107) 01/25/22 CO2 28 mmol/L (21-32) 01/25/22 Anion Gap 11 (3-11) 01/25/22 BUN 17 mg/dl (6-23) 01/25/22 Creatinine 0.87 mg/dl (0.6-1.4) 01/25/22 Estimated GFR ( Amer) 104.2 ml/min 01/25/22 Estimated GFR (Non-Af Amer) 89.9 ml/min 01/25/22 BUN/Creatinine Ratio 19.5 (10-20) 01/25/22 Glu 186 mg/dl (70-99(Fasting)) H 01/25/22 Ca 9.5 mg/dl (8.5-10.1) 01/25/22 Mg 2.2 mg/dl (1.7-2.4) 01/25/22 09:27 Calcium Level 9.5 mg/dl (8.5-10.1) 01/25/22 09:27 Microbiology 01/18/22 17:54 Aerobic Blood Culture - Preliminary Blood No growth in Aerobic bottle after 24 hours. Anaerobic Blood Culture - Preliminary No growth in Anaerobic bottle after 24 hours. 01/18/22 17:54 Aerobic Blood Culture - Preliminary Blood No growth in Aerobic bottle after 24 hours. Anaerobic Blood Culture - Preliminary No growth in Anaerobic bottle after 24 hours. Diagnostic Findings (Past 24 Hours) Chest X-Ray 01/20/22 08:50 XR chest 1V portable HISTORY: 66 years-old Male Worsening hypoxia acute hypoxia COMPARISON: Chest CT and chest radiograph 01/19/2022 TECHNIQUE: AP view of the chest FINDINGS: Cardiac silhouette is enlarged. Atherosclerosis of the thoracic aorta. No pneumothorax. Mild somewhat linear bibasilar consolidation. Degenerative changes of the shoulders and spine. IMPRESSION: 1. Persistent bibasilar mostly linear consolidation suggestive of atelectasis. Pneumonia could appear similarly. 2. Cardiomegaly without pulmonary edema. ACT 112: Negative or not required by law. The above report was generated using voice recognition software. It may contain grammatical, syntax or spelling errors. Electronically signed by: Isacc Mosqueda M.D. 01/20/2022 9:24 AM I & O Totals 24 Hours 01/19/22 01/20/22 01/21/22 06:59 06:59 06:59 Intake Total 120 / 120 360 / 360 540 / 540 Output Total 775 / 775 600 / 600 Balance 120 / 120 -415 / -415 -60 / -60 Cumulative 01/18/22 16:09 thru 01/20/22 16:14 Intake Total 1020 Output Total 1375 Balance -355 RT Ventilator Mngmt (Last Documented) Ventilator Ordered Settings Respiratory Rate 22 01/20/22 15:45 Fraction of Inspired Oxygen 60 01/20/22 12:48 Ventilator - PT Measurements Respiratory Rate 22 PG Care Time/CCT Total # of Minutes Spent Total Time Spent with Patient: Total time spent is greater than 50% in coordination of care (as documented) at patient's floor/unit and/or counseling patient: Coding Level of Care Code 73096 Subseq Hosp Care Lvl 3 Diagnoses Acute respiratory failure with hypoxia J96.01 Morbid obesity E66.01 Hypertension I10 Graves disease E05.00 Coronary artery disease I25.10 DVT prophylaxis Z29.9 History of cataract surgery Z98.49
[2022-01-21] MEDS: PIPERACILLIN/TAZOBACTAM 4.5 GM in DEXTROSE 5% 100 ML IV SCH ×3 (03:59→20:24)
[2022-01-21 07:02] LABS: Basophils # (auto) 0.04 K/uL (0-0.2); Basophils % (auto) 0.4 %; Eosinophils # (auto) 0.06 K/uL (0-0.50); Eosinophils % (auto) 0.7 %; Hematocrit (blood only) 49.1 % (40.1-51.0); Hemoglobin 15.1 g/dl (14.0-18.0); Immature Granulocytes # (auto) 0.02 K/uL (0.00-0.02); Immature Granulocytes % (auto) 0.2 %; Lymphocytes % (auto) 17.4 %; Mean Corpuscular Hgb Conc 30.8 g/dL (32.0-36.0); Mean Corpuscular Volume 94.2 fL (80.0-100.0); Mean Platelet Volume 11.4 fL (9.4-12.4); Monocytes # (auto) 1.07 K/uL (0.24-0.82); Monocytes % (auto) 11.6 %; Neutrophils # (auto) 6.41 K/uL (1.4-6.5); Neutrophils % (auto) 69.7 %; Platelet Count 173 K/uL (130-400); RDW Coefficient of Variation 15.2 % (11.5-14.5); RDW Standard Deviation 52.4 fL (36.4-46.3); Red Blood Count 5.21 M/uL (4.63-6.08)
[2022-01-21] MEDS: BUDESONIDE 0.5 MG/2 ML VIAL (PULMICORT) NEB SCH ×2 (07:03→20:06)
[2022-01-21] MEDS: SODIUM CHLOR 7% 4 ML NEB NEB SCH ×2 (07:03→20:06)
[2022-01-21 07:35] LABS: Albumin Globulin Ratio 1.4 (0.9-2); Albumin Level 4.2 gm/dl (3.4-5.0); BUN Creatinine Ratio 18.2 (10-20); Bilirubin,Total 1.3 mg/dl (0.2-1.0); Calcium 9.3 mg/dl (8.5-10.1); Creatinine Clr Calc Pharmacy 133.2 ml/min; Est GFR (African American) 103.7 ml/min; Est GFR (Non-African American) 89.5 ml/min; Magnesium 2.2 mg/dl (1.7-2.4); Potassium 4.2 mmol/L (3.5-5.1); Total Protein 7.2 gm/dl (6.0-8.3)
[2022-01-21] MEDS: guaiFENesin 600 MG TABCR PO SCH ×2 (08:04→20:25)
[2022-01-21] MEDS: LOSARTAN POTASSIUM 50 MG TAB PO SCH (08:04)
[2022-01-21] MEDS: ASPIRIN 81 MG ECTAB PO SCH (08:04)
[2022-01-21] MEDS: ATORVASTATIN 40 MG TAB PO SCH (08:04)
[2022-01-21] MEDS: METOPROLOL SUCC 25MG EXT REL TAB PO SCH (08:04)
[2022-01-21] MEDS: CYANOCOBALAMIN (B-12) 500 MCG TABLET PO SCH (08:04)
[2022-01-21] MEDS: MOXIFLOXACIN OP SCH ×4 (08:05→20:25)
[2022-01-21] MEDS: BROMFENAC OP SCH ×4 (08:05→20:25)
[2022-01-21] MEDS: INSULIN ASPART PER UNIT SC SCH ×4 (08:05→20:36)
[2022-01-21] MEDS: PREDNISOLONE OP SCH ×4 (08:05→20:25)
--- NOTE | 2022-01-21 10:15 | XRay Report ---
SINGLE VIEW CHEST CLINICAL HISTORY: Hypoxia. FINDINGS: 2 AP, portable, upright chest radiographs are compared to study dated 01/20/2022. Correlation is made with chest CT dated 01/19/2022. The examination is degraded by portable technique and apical l ordotic positioning. The heart is enlarged noting atherosclerotic calcification of the thoracic aorta . The pulmonary vasculature is noncongested. Bibasilar opacities persist. No large pleural effusion o r pneumothorax is seen. The skeletal structures are osteopenic. The bony thorax is grossly intact. IMPRESSION: 1. Cardiomegaly without radiographic evidence of congestive failure. 2. Bibasilar opacities have not significantly changed from yesterday. ACT 112: Negative or not required by law. Electronically signed by: John Rivers M.D. 01/21/2022 10:14 AM
--- NOTE | 2022-01-21 10:45 | Hospitalist Progress Note ---
Date of Service January 21, 2022 Assessment & Plan (1) Acute respiratory failure with hypoxia: Plan: Patient admitted for acute hypoxia and hypercapnia Chest x-ray with question of bilateral opacities versus severe atelectasis Repeat chest x-ray today with minimal improvement bilaterally No prior pulmonary history Continue to treat with IV antibiotics (day #4 Zosyn), may want to DC tomorrow. Patient seems a little fluid overloaded, CHF should be on the differential. Given one Lasix 40mg push tonight and see how the patient does (2) Morbid obesity: Plan: BMI 44.6 kg/m Encouraged to increase activity and calorie reduction Patient reports 20 to 30 pound weight gain in the last 2 years (3) Hypertension: Plan: Continue Toprol XL and losartan No chest pain or tightness. Continue on telemetry Continue outpatient management with PCP (4) Graves disease: Plan: TSH 0.85 Continue outpatient management with PCP (5) Coronary artery disease: Plan: Continue Metoprolol Succinate ASA daily Follows with Dr. Vazquez Previous history of ND No acute issues at this time. (6) DVT prophylaxis: Plan: Aspirin 162 mg p.o. daily. No other chemical prophylaxis secondary to recent surgery Ambulate in hallways as tolerated (7) History of cataract surgery: Plan: POD #2 OS Performed at [facility] No complications with procedure yesterday Continue with ophthalmic drops as prescribed Outpatient follow-up with ophthalmology the day of or after discharge Admission and Anticipated Discharge Date Admission Date: January 18, 2022 Supervising Physician Co-Signing Physician Notes I personally examined the patient and verified all ramirez points of history and exam, discussed case, and agree with decision making with Dr Lanier Not really feeling short of breath but still needing rather significant oxygen. Coughing sometimes with reddish sputum. Notes he was sick for about a month before. Definitely thinks he probably has sleep apnea. Vitals noted, in general he is awake and alert pleasant no distress. HEENT normocephalic atraumatic mucous membranes moist. Breathing unlabored no accessory muscle use good effort. Skin shows no rashes no pallor or icterus. Neuro without focal deficits. Exam otherwise as above. Hypoxiapneumonia and OHS. Nursing brings up the very valid question of possible PE as wellgiven that CT was not with contrast we will check for PE given that the risk is there. Continue antibiotics. BiPAP at bedtime. As he gets closer to discharge we will check an overnight pulse ox and a.m. blood gas to try to qualify him for pressure support right out of the hospital. Otherwise as above Subjective Patient was seen beside this morning. He continues to be on a high amount of O2 (9 L) and not on any at home. He states that he is doing better and in no acute stress right now. He states that he does have orthopnea and one epsiode of hemoptysis. Minimal sputum output. No chest pain or tightness. Physical Exam Physical Exam: GENERAL : No acute distress EYES: No icterus, gaze conjugate NOSE: No evidence of epistaxis MOUTH: No lesions or candidiasis NECK: Supple LUNGS: Decreased breath sounds at the bilateral bases. Patient has some fine scattered wheezes. No gross rales or rhonchi appreciated HEART: Regular, rate controlled ABDOMEN: Soft, NT, ND, BS Present EXTREMITIES: BL LE pitting edema +2/3, pedal pulses intact NEURO: A&OX3 Results & Data Results & Data ([facility]) Vital Signs (Past 12 Hours) Vital Signs Temp Pulse Resp BP BP Pulse Ox O2 Del Method 01/21/22 08:00 Nasal Cannula 01/21/22 07:54 36.5 C 56 L 20 138/96 94 High Flow Nasal Cannula 01/21/22 07:03 87 18 90 Oxymask 01/21/22 03:36 36.6 C 71 18 153/96 H 97 Nasal Cannula 01/20/22 23:20 36.7 C 72 18 159/91 H 92 Oxymask O2 Flow Rate 01/21/22 08:00 9.5 01/21/22 07:54 9 01/21/22 07:03 11 01/21/22 03:36 11.5 01/20/22 23:20 11.5 Resident Activity Tracking Resident Involvement: Resident Care Provided Care Provided: Adult Hospital Medicine
[2022-01-21] MEDS ORDERED: FUROSEMIDE 40 MG/4 ML VIAL IV ONE (14:30)
--- NOTE | 2022-01-21 19:05 | Billing Data ---
Date of Service January 21, 2022 Coding Level of Care Code 76994 Subseq Hosp Care Lvl 3
--- NOTE | 2022-01-21 19:05 | Billing Data ---
Date of Service January 21, 2022 Coding Level of Care Code 11239 Subseq Hosp Care Lvl 3
[2022-01-21] MEDS ORDERED: OPTIRAY 320 125ml IV ONE (19:50)
--- NOTE | 2022-01-21 20:13 | CT Scan Report ---
CT angio chest PE protocol CT DOSE: 902.44 mGy.cm HISTORY: 66 years-old Male with hypoxia - eval for PE. Acute hypoxia TECHNIQUE: Multiple CTA images of the chest were obtained after the intravenous administration of 120 ml Optiray. Coronal and sagittal MIPS were obtained from the axial data set and were submitted for review. All measurements were obtained according to NASCET criteria. A dose lowering technique was u tilized adhering to the principles of ALARA. COMPARISON: Chest CT 01/19/2022 FINDINGS: CTA: Moderate cardiomegaly. No pericardial effusion. Extensive coronary artery calcifications. Atheroscler osis of the thoracic aorta. Fusiform aneurysmal dilation of the ascending thoracic aorta measures up to approximately 5.1 cm. No dissection. Suboptimal evaluation of the segmental and subsegmental pulmo nary arterial branches secondary to respiratory motion artifact and contrast bolus timing. There are questioned subsegmental filling defects noted within the right upper lobe on image 158 and within the right middle lobe on image 139. No central pulmonary emboli. CT CHEST: No thyroid nodule or lymphadenopathy. No pneumothorax or pleural effusion. Bronchial wall thickening with bibasilar mucous plugging. Cystic and groundglass nodule of the left upper lobe on image 152 marcela sures 1.3 cm. There are a few scattered solid pulmonary nodules redemonstrated measuring 4-5 mm (plea se see bookmarks). Bibasilar groundglass densities redemonstrated along with linear and patchy areas of consolidation which appears similar to mildly improved from the study obtained 2 days earlier. No acute process of the imaged upper abdomen. Unremarkable soft tissues. No acute fracture. Postopera tive changes of the shoulders. IMPRESSION: 1. Limited evaluation of the pulmonary arterial tree as above. There are questioned filling defects w ithin subsegmental branches of the pulmonary artery within the right lung as above which are favored to be artifactual. Pulmonary emboli however could appear similarly. Correlation with lower extremity Doppler recommended. No central pulmonary emboli are present. 2. Linear and patchy airspace consolidation in the lung bases is similar to mildly improved from the study obtained 2 days earlier. Findings may represent atelectasis versus pneumonia. 3. Bronchial wall thickening with bibasilar mucous plugging. 4. Cardiomegaly with aneurysmal dilation of the ascending thoracic aorta, 5.1 cm. ACT 112: Negative or not required by law. The above report was generated using voice recognition software. It may contain grammatical, syntax o r spelling errors. Electronically signed by: Isacc Mosqueda M.D. 01/21/2022 8:11 PM
[2022-01-22] MEDS: PIPERACILLIN/TAZOBACTAM 4.5 GM in DEXTROSE 5% 100 ML IV SCH ×2 (03:52→12:16)
--- NOTE | 2022-01-22 06:28 | Hospitalist Progress Note ---
Date of Service January 22, 2022 Assessment & Plan (1) Acute respiratory failure with hypoxia: Plan: Patient admitted for acute hypoxia and hypercapnia Chest x-ray with question of bilateral opacities versus severe atelectasis Repeat chest x-ray today with minimal improvement bilaterally No prior pulmonary history, but does have a 10 pack smoking history- quit 30 years ago Differential includes pneumonia, CHF, PE, JONATHAN - most likely pneumonia in the setting of underlying OHS and JONATHAN Continue to treat with IV antibiotics (day #5 Zosyn) will transition to Rocephin and azithromycin with a plan for total antibiotic duration of 7 days based on clinical presentation One dose of Lasix 40mg given yesterday without improvement in hypoxia CTA yesterday showed questioned filling defects within subsegmental branches of the pulmonary artery within the right lung which could be artifact or pulmonary emboli. ; US of LE was negative for DVT. Did not tolerate BiPAP overnight but is willing to try again tonight, will check overnight pulse ox and a.m. blood gas closer to discharge Will wean oxygen as tolerated (2) Morbid obesity: Plan: BMI 44.6 kg/m Encouraged to increase activity and calorie reduction Patient reports 20 to 30 pound weight gain in the last 2 years (3) Hypertension: Plan: Continue Toprol XL and losartan No chest pain or tightness. Continue on telemetry Continue outpatient management with PCP (4) Graves disease: Plan: TSH 0.85 Continue outpatient management with PCP (5) Coronary artery disease: Plan: Continue Metoprolol Succinate ASA daily Follows with Dr. Vazquez Previous history of [place] No acute issues at this time. (6) DVT prophylaxis: Plan: Aspirin 162 mg p.o. daily. No other chemical prophylaxis secondary to recent surgery Ambulate in hallways as tolerated (7) History of cataract surgery: Plan: Performed at [facility] 01/18 No complications with procedure Continue with ophthalmic drops as prescribed Outpatient follow-up with ophthalmology the day of or after discharge Admission and Anticipated Discharge Date Admission Date: January 18, 2022 Supervising Physician Co-Signing Physician Notes I personally examined the patient and verified all ramirez points of history and exam, discussed case, and agree with decision making with Dr Martinez Feeling pretty good overall. Took a walknotes that his pulse ox once he returned was good. Also noted a dip in his pulse ox in the low 90s whenever he was taking a nap. Vitals noted, in general he is awake and alert pleasant no distress. HEENT normocephalic atraumatic mucous membranes moist. Breathing unlabored no accessory muscle use good effort. Skin shows no rashes no pallor or icterus. Neuro without focal deficits. Exam otherwise as above. Hypoxiapneumonia and OHS. Equivocal CT with negative venous DopplersPE seems fairly unlikelyespecially given that we have 2 other probable causes for his hypoxia. Continue antibiotics, continue BiPAP. As he gets closer to dischargeovernight pulse ox and a.m. blood gas. Otherwise as above Subjective Patient was seen beside this morning, resting comfortably. He continues to have a high O2 requirement, 9L, despite not being on oxygen at home. He states that he is feeling well with no acute complainants, feels as though his dyspnea is improving. Continues to have a productive cough; green sputum. Did not tolerate BiPAP overnight, but is willing to try again. Does snore and has been sleeping in a recliner at home since he had a URI a month ago. Denies hemoptysis, fever, chills, nausea, vomiting, abdominal pain. No chest pain or tightness. Has not had a bowel movement since Monday- declines stool softener/laxative. Physical Exam Physical Exam: GENERAL : No acute distress EYES: No icterus NOSE: No evidence of epistaxis MOUTH: No lesions or candidiasis NECK: Supple, no JVD LUNGS: Decreased breath sounds at the bilateral bases. No gross rales, rhonchi, wheezing appreciated HEART: Regular, rate and rhythm. No murmurs. ABDOMEN: Soft, NT, ND, BS Present EXTREMITIES: Right LE +2 pitting edema to the mid calf with chronic venous dermatitis, +1 pitting edema in left LE in mid calf NEURO: A&OX3 Results & Data Results & Data ([facility]) Vital Signs (Past 12 Hours) Vital Signs Temp Pulse Resp BP BP Pulse Ox Pulse Ox 01/22/22 02:54 36.7 C 79 16 130/85 93 01/21/22 23:15 36.5 C 73 18 130/83 91 01/21/22 22:27 79 20 91 01/21/22 20:06 113 H 18 94 01/21/22 20:15 36.7 C 84 20 136/93 97 01/21/22 19:56 O2 Del Method O2 Del Method O2 Flow Rate O2 Flow Rate 01/22/22 02:54 Oxymask 9 01/21/22 23:15 Oxymask 9 01/21/22 22:27 Oxymask 9 01/21/22 20:06 Nasal Cannula 9 01/21/22 20:15 Oxymask 9 01/21/22 19:56 Nasal Cannula 9 Laboratory Results 01/22/22 01/22/22 01/21/22 Range/Units 07:00 07:00 20:08 WBC 8.46 (4.8-10.8) K/ul RBC 5.29 (4.63-6.08) M/uL Hgb 15.4 (14.0-18.0) g/dl Hct 49.5 (40.1-51.0) % MCV 93.6 (80.0-100.0) fL MCH 29.1 (25.0-34.0) pg MCHC 31.1 L (32.0-36.0) g/dL RDW Std Deviation 52.6 H (36.4-46.3) fL RDW Coeff of Sara 15.3 H (11.5-14.5) % Plt Count 175 (130-400) K/uL MPV 11.0 (9.4-12.4) fL Immature Gran % (Auto) 0.4 % Neut % (Auto) 65.1 % Lymph % (Auto) 19.9 % Wharton % (Auto) 12.8 % Eos % (Auto) 1.2 % Baso % (Auto) 0.6 % Neut # (Auto) 5.52 (1.4-6.5) K/uL Lymph # (Auto) 1.68 (1.2-3.4) K/uL Wharton # (Auto) 1.08 H (0.24-0.82) K/uL Eos # (Auto) 0.10 (0-0.50) K/uL Baso # (Auto) 0.05 (0-0.2) K/uL Immature Gran # (Auto) 0.03 H (0.00-0.02) K/uL Sodium 140 (136-145) mmol/L Potassium 3.8 (3.5-5.1) mmol/L Chloride 98 (98-107) mmol/L Carbon Dioxide 37 H (21-32) mmol/L Anion Gap 5 (3-11) BUN 19 (6-23) mg/dl Creatinine 0.89 (0.6-1.4) mg/dl Est Cr Clr Drug Dosing 129.7 ml/min Est GFR ( Amer) 103.3 ml/min Est GFR (Non-Af Amer) 89.1 ml/min BUN/Creatinine Ratio 21.3 H (10-20) Glucose 106 H (70-99(Fasting)) mg/dl POC Glucose 100 H (70-99) mg/dl Calcium 9.3 (8.5-10.1) mg/dl Total Bilirubin 1.6 H (0.2-1.0) mg/dl AST 19 (13-39) U/L ALT 16 (7-52) U/L Alkaline Phosphatase 67 (34-104) U/L Total Protein 7.1 (6.0-8.3) gm/dl Albumin 4.2 (3.4-5.0) gm/dl Globulin 2.9 (2.5-4.0) gm/dl Albumin/Globulin Ratio 1.4 (0.9-2) 01/21/22 01/21/22 Range/Units 16:33 11:46 WBC (4.8-10.8) K/ul RBC (4.63-6.08) M/uL Hgb (14.0-18.0) g/dl Hct (40.1-51.0) % MCV (80.0-100.0) fL MCH (25.0-34.0) pg MCHC (32.0-36.0) g/dL RDW Std Deviation (36.4-46.3) fL RDW Coeff of Sara (11.5-14.5) % Plt Count (130-400) K/uL MPV (9.4-12.4) fL Immature Gran % (Auto) % Neut % (Auto) % Lymph % (Auto) % Wharton % (Auto) % Eos % (Auto) % Baso % (Auto) % Neut # (Auto) (1.4-6.5) K/uL Lymph # (Auto) (1.2-3.4) K/uL Wharton # (Auto) (0.24-0.82) K/uL Eos # (Auto) (0-0.50) K/uL Baso # (Auto) (0-0.2) K/uL Immature Gran # (Auto) (0.00-0.02) K/uL Sodium (136-145) mmol/L Potassium (3.5-5.1) mmol/L Chloride (98-107) mmol/L Carbon Dioxide (21-32) mmol/L Anion Gap (3-11) BUN (6-23) mg/dl Creatinine (0.6-1.4) mg/dl Est Cr Clr Drug Dosing ml/min Est GFR ( Amer) ml/min Est GFR (Non-Af Amer) ml/min BUN/Creatinine Ratio (10-20) Glucose (70-99(Fasting)) mg/dl POC Glucose 95 87 (70-99) mg/dl Calcium (8.5-10.1) mg/dl Total Bilirubin (0.2-1.0) mg/dl AST (13-39) U/L ALT (7-52) U/L Alkaline Phosphatase (34-104) U/L Total Protein (6.0-8.3) gm/dl Albumin (3.4-5.0) gm/dl Globulin (2.5-4.0) gm/dl Albumin/Globulin Ratio (0.9-2) Diagnostic Findings CT angio chest PE protocol CT DOSE: 902.44 mGy.cm HISTORY: 66 years-old Male with hypoxia - eval for PE. Acute hypoxia TECHNIQUE: Multiple CTA images of the chest were obtained after the intravenous administration of 120 ml Optiray. Coronal and sagittal MIPS were obtained from the axial data set and were submitted for review. All measurements were obtained according to NASCET criteria. A dose lowering technique was utilized adhering to the principles of ALARA. COMPARISON: Chest CT 01/19/2022 FINDINGS: CTA: Moderate cardiomegaly. No pericardial effusion. Extensive coronary artery calcifications. Atherosclerosis of the thoracic aorta. Fusiform aneurysmal dilation of the ascending thoracic aorta measures up to approximately 5.1 cm. No dissection. Suboptimal evaluation of the segmental and subsegmental pulmonary arterial branches secondary to respiratory motion artifact and contrast bolus timing. There are questioned subsegmental filling defects noted within the right upper lobe on image 158 and within the right middle lobe on image 139. No central pulmonary emboli. CT CHEST: No thyroid nodule or lymphadenopathy. No pneumothorax or pleural effusion. Bronchial wall thickening with bibasilar mucous plugging. Cystic and groundglass nodule of the left upper lobe on image 152 measures 1.3 cm. There are a few scattered solid pulmonary nodules redemonstrated measuring 4-5 mm (please see bookmarks). Bibasilar groundglass densities redemonstrated along with linear and patchy areas of consolidation which appears similar to mildly improved from the study obtained 2 days earlier. No acute process of the imaged upper abdomen. Unremarkable soft tissues. No acute fracture. Postoperative changes of the shoulders. IMPRESSION: 1. Limited evaluation of the pulmonary arterial tree as above. There are questioned filling defects within subsegmental branches of the pulmonary artery within the right lung as above which are favored to be artifactual. Pulmonary emboli however could appear similarly. Correlation with lower extremity Doppler recommended. No central pulmonary emboli are present. 2. Linear and patchy airspace consolidation in the lung bases is similar to mildly improved from the study obtained 2 days earlier. Findings may represent atelectasis versus pneumonia. 3. Bronchial wall thickening with bibasilar mucous plugging. 4. Cardiomegaly with aneurysmal dilation of the ascending thoracic aorta, 5.1 cm. ACT 112: Negative or not required by law. The above report was generated using voice recognition software. It may contain grammatical, syntax or spelling errors. Electronically signed by: Isacc Mosqueda M.D. BILATERAL LOWER EXTREMITY VENOUS DOPPLER HISTORY: Possible pulmonary embolus. Assess for DVT. ?DVT COMPARISON STUDY: None. FINDINGS: There is normal compressibility, flow, and augmentation within the bilateral lower extremity deep venous systems. IMPRESSION: No DVT within the right or left lower extremity. Resident Activity Tracking Resident Involvement: Resident Care Provided Care Provided: Adult Hospital Medicine
[2022-01-22 07:28] LABS: Basophils # (auto) 0.05 K/uL (0-0.2); Basophils % (auto) 0.6 %; Eosinophils % (auto) 1.2 %; Hematocrit (blood only) 49.5 % (40.1-51.0); Hemoglobin 15.4 g/dl (14.0-18.0); Immature Granulocytes # (auto) 0.03 K/uL (0.00-0.02); Immature Granulocytes % (auto) 0.4 %; Lymphocytes # (auto) 1.68 K/uL (1.2-3.4); Lymphocytes % (auto) 19.9 %; Mean Corpuscular Hemoglobin 29.1 pg (25.0-34.0); Mean Corpuscular Hgb Conc 31.1 g/dL (32.0-36.0); Mean Corpuscular Volume 93.6 fL (80.0-100.0); Monocytes # (auto) 1.08 K/uL (0.24-0.82); Monocytes % (auto) 12.8 %; Neutrophils # (auto) 5.52 K/uL (1.4-6.5); Neutrophils % (auto) 65.1 %; Platelet Count 175 K/uL (130-400); RDW Coefficient of Variation 15.3 % (11.5-14.5); RDW Standard Deviation 52.6 fL (36.4-46.3); Red Blood Count 5.29 M/uL (4.63-6.08); White Blood Count 8.46 K/ul (4.8-10.8)
[2022-01-22] MEDS: BUDESONIDE 0.5 MG/2 ML VIAL (PULMICORT) NEB SCH ×2 (07:40→19:15)
[2022-01-22] MEDS: SODIUM CHLOR 7% 4 ML NEB NEB SCH ×2 (07:40→19:15)
[2022-01-22 07:56] LABS: Albumin Globulin Ratio 1.4 (0.9-2); Albumin Level 4.2 gm/dl (3.4-5.0); BUN Creatinine Ratio 21.3 (10-20); Bilirubin,Total 1.6 mg/dl (0.2-1.0); Calcium 9.3 mg/dl (8.5-10.1); Creatinine Clr Calc Pharmacy 129.7 ml/min; Est GFR (African American) 103.3 ml/min; Est GFR (Non-African American) 89.1 ml/min; Globulin 2.9 gm/dl (2.5-4.0); Potassium 3.8 mmol/L (3.5-5.1); Total Protein 7.1 gm/dl (6.0-8.3)
[2022-01-22] MEDS: guaiFENesin 600 MG TABCR PO SCH ×2 (08:44→20:14)
[2022-01-22] MEDS: ATORVASTATIN 40 MG TAB PO SCH (08:44)
[2022-01-22] MEDS: METOPROLOL SUCC 25MG EXT REL TAB PO SCH (08:45)
[2022-01-22] MEDS: LOSARTAN POTASSIUM 50 MG TAB PO SCH (08:45)
[2022-01-22] MEDS: CYANOCOBALAMIN (B-12) 500 MCG TABLET PO SCH (08:46)
[2022-01-22] MEDS: ASPIRIN 81 MG ECTAB PO SCH (08:46)
[2022-01-22] MEDS: BROMFENAC OP SCH ×4 (08:48→20:14)
[2022-01-22] MEDS: MOXIFLOXACIN OP SCH ×4 (08:48→20:14)
[2022-01-22] MEDS: PREDNISOLONE OP SCH ×4 (08:48→20:14)
[2022-01-22] MEDS: INSULIN ASPART PER UNIT SC SCH ×4 (08:51→20:13)
--- NOTE | 2022-01-22 12:33 | Ultrasound Report ---
BILATERAL LOWER EXTREMITY VENOUS DOPPLER HISTORY: Possible pulmonary embolus. Assess for DVT. ?DVT COMPARISON STUDY: None. FINDINGS: There is normal compressibility, flow, and augmentation within the bilateral lower extremit y deep venous systems. IMPRESSION: No DVT within the right or left lower extremity. ACT 112: Negative or not required by law. Electronically signed by: Adan Romero M.D. 01/22/2022 12:31 PM
[2022-01-22] MEDS ORDERED: cefTRIAXone SODIUM 1,000 MG in DEXTROSE 5% 50 ML IV SCH (15:00)
[2022-01-22] MEDS ORDERED: cefTRIAXone SODIUM 2,000 MG in DEXTROSE 5% 50 ML IV SCH (16:00)
--- NOTE | 2022-01-22 19:42 | Billing Data ---
Date of Service January 22, 2022 Coding Level of Care Code 94714 Subseq Hosp Care Lvl 3
--- NOTE | 2022-01-23 07:03 | Hospitalist Progress Note ---
Date of Service January 23, 2022 Assessment & Plan (1) Acute respiratory failure with hypoxia: Plan: Patient admitted for acute hypoxia and hypercapnia Initially initially included CHF, pneumonia, JONATHAN, OHS No prior pulmonary history, but does have a 10 pack smoking history- quit 30 years ago CTA showed questionable filling defects, US of LE was negative for DVTs making PE less likely He was given a dose of lasix on 01/21 with minimal improvement and did not have an elevated BNP, making CHF less likely Was treated with 5 days of Zosyn transitioned yesterday to Rocephin and azithromycin with a plan for total antibiotic duration of 7 days based on clinical presentation Will continue BiPAP overnight, will check overnight pulse ox and a.m. blood gas overnight to try to get qualified for home BiPAP Will wean oxygen as tolerated (2) Morbid obesity: Plan: BMI 44.6 kg/m Encouraged to increase activity and calorie reduction Patient reports 20 to 30 pound weight gain in the last 2 years (3) Hypertension: Plan: Continue Toprol XL and losartan No chest pain or tightness. Continue on telemetry Continue outpatient management with PCP (4) Graves disease: Plan: TSH 0.85 Continue outpatient management with PCP (5) Coronary artery disease: Plan: Continue Metoprolol Succinate ASA daily Follows with Dr. Vazquez Previous history of [place] No acute issues at this time. (6) DVT prophylaxis: Plan: Aspirin 162 mg p.o. daily. No other chemical prophylaxis secondary to recent surgery Ambulate in hallways as tolerated (7) History of cataract surgery: Plan: Performed at [facility] 01/18 No complications with procedure Continue with ophthalmic drops as prescribed Outpatient follow-up with ophthalmology the day of or after discharge Admission and Anticipated Discharge Date Admission Date: January 18, 2022 Supervising Physician Co-Signing Physician Notes I personally examined the patient and verified all ramirez points of history and exam, discussed case, and agree with decision making with Dr Martinez slept well w bipap! discussed overnight pulse ox and AM blood gas Vitals noted, in general he is awake and alert pleasant no distress. HEENT normocephalic atraumatic mucous membranes moist. Breathing unlabored no accessory muscle use good effort. Skin shows no rashes no pallor or icterus. Neuro without focal deficits. Exam otherwise as above. Hypoxiapneumonia and OHS. Equivocal CT with negative venous DopplersPE seems fairly unlikelyespecially given that we have 2 other probable causes for his hypoxia. Continue antibiotics. discussed likely to need home O2 for now - should get outpt PFTs to quantify restrictive severity. overnight pulse ox and AM ABG to hopefully qualify for pressure support/NIV, 2 step to look to set up O2 if needed Otherwise as above, hopefully home tomorrow Subjective Patient was seen beside this morning, resting comfortably. When I saw him this morning he was on 7L, down from 9L yesterday. Does not require oxygen at home. He states that he is feeling well with no acute complainants, feels as though his dyspnea is improving. Was able to use the CPAP overnight and felt that this was his best night of sleep he's had in years. Denies hemoptysis, cough,fever, chills, nausea, vomiting, abdominal pain. No chest pain or tightness. Physical Exam Physical Exam: GENERAL : No acute distress EYES: No icterus NOSE: No evidence of epistaxis MOUTH: No lesions or candidiasis NECK: Supple, no JVD LUNGS: Decreased breath sounds at the bilateral bases. No gross rales, rhonchi, wheezing appreciated HEART: Regular, rate and rhythm. No murmurs. ABDOMEN: Soft, NT, ND, BS Present EXTREMITIES: Right LE +2 pitting edema to the mid calf with chronic venous dermatitis, +1 pitting edema in left LE in mid calf NEURO: A&OX3 Results & Data Results & Data ([facility]) Vital Signs (Past 12 Hours) Vital Signs Temp Pulse Pulse Resp BP BP Pulse Ox 01/23/22 03:00 71 21 90 01/23/22 03:02 36.4 C L 73 16 126/84 91 01/22/22 23:00 36.4 C L 67 14 122/74 95 01/22/22 22:25 70 20 94 01/22/22 19:37 01/22/22 19:18 36.8 C 80 20 119/82 93 01/22/22 19:16 71 22 93 O2 Del Method O2 Flow Rate 01/23/22 03:00 7 01/23/22 03:02 CPAP 01/22/22 23:00 CPAP 01/22/22 22:25 7 01/22/22 19:37 Nasal Cannula 6 01/22/22 19:18 Nasal Cannula 6 01/22/22 19:16 Nasal Cannula 6
[2022-01-23] MEDS: SODIUM CHLOR 7% 4 ML NEB NEB SCH ×2 (07:34→19:32)
[2022-01-23] MEDS: BUDESONIDE 0.5 MG/2 ML VIAL (PULMICORT) NEB SCH ×2 (07:40→19:32)
[2022-01-23 07:50] LABS: Basophils # (auto) 0.05 K/uL (0-0.2); Basophils % (auto) 0.7 %; Eosinophils # (auto) 0.16 K/uL (0-0.50); Eosinophils % (auto) 2.1 %; Hematocrit (blood only) 50.8 % (40.1-51.0); Hemoglobin 15.9 g/dl (14.0-18.0); Immature Granulocytes # (auto) 0.02 K/uL (0.00-0.02); Immature Granulocytes % (auto) 0.3 %; Lymphocytes # (auto) 2.15 K/uL (1.2-3.4); Lymphocytes % (auto) 28.4 %; Mean Corpuscular Hemoglobin 28.8 pg (25.0-34.0); Mean Corpuscular Hgb Conc 31.3 g/dL (32.0-36.0); Mean Platelet Volume 11.3 fL (9.4-12.4); Monocytes # (auto) 0.93 K/uL (0.24-0.82); Monocytes % (auto) 12.3 %; Neutrophils # (auto) 4.27 K/uL (1.4-6.5); Neutrophils % (auto) 56.2 %; Platelet Count 175 K/uL (130-400); RDW Coefficient of Variation 15.2 % (11.5-14.5); RDW Standard Deviation 51.3 fL (36.4-46.3); Red Blood Count 5.52 M/uL (4.63-6.08); White Blood Count 7.58 K/ul (4.8-10.8)
[2022-01-23] MEDS: ATORVASTATIN 40 MG TAB PO SCH (07:53)
[2022-01-23] MEDS: guaiFENesin 600 MG TABCR PO SCH ×2 (07:53→20:31)
[2022-01-23] MEDS: ASPIRIN 81 MG ECTAB PO SCH (07:54)
[2022-01-23] MEDS: CYANOCOBALAMIN (B-12) 500 MCG TABLET PO SCH (07:54)
[2022-01-23] MEDS: LOSARTAN POTASSIUM 50 MG TAB PO SCH (07:55)
[2022-01-23] MEDS: METOPROLOL SUCC 25MG EXT REL TAB PO SCH (07:55)
[2022-01-23] MEDS: cefTRIAXone SODIUM 2,000 MG in DEXTROSE 5% 50 ML IV SCH (08:04)
[2022-01-23] MEDS: PREDNISOLONE OP SCH ×4 (08:09→20:33)
[2022-01-23] MEDS: INSULIN ASPART PER UNIT SC SCH ×4 (08:09→20:28)
[2022-01-23] MEDS: MOXIFLOXACIN OP SCH ×4 (08:09→20:33)
[2022-01-23] MEDS: BROMFENAC OP SCH ×4 (08:09→20:33)
[2022-01-23] MEDS: AZITHROMYCIN 500 MG in DEXTROSE 5% 250 ML IV SCH (08:10)
[2022-01-23 08:11] LABS: Albumin Globulin Ratio 1.4 (0.9-2); Albumin Level 4.2 gm/dl (3.4-5.0); BUN Creatinine Ratio 22.9 (10-20); Bilirubin,Total 1.6 mg/dl (0.2-1.0); Calcium 9.5 mg/dl (8.5-10.1); Creatinine Clr Calc Pharmacy 139.4 ml/min; Est GFR (African American) 106.3 ml/min; Est GFR (Non-African American) 91.7 ml/min; Potassium 3.9 mmol/L (3.5-5.1); Total Protein 7.2 gm/dl (6.0-8.3)
--- NOTE | 2022-01-23 18:49 | Billing Data ---
Date of Service January 23, 2022 Coding Level of Care Code 44154 Subseq Hosp Care Lvl 3
[2022-01-24 06:02] LABS: Base Excess ABG 10.5 mEq/L (-9-1.8); HCO3 ABG 37 mmol/L (19-24); PCO2 ABG 54 mmHg (35-46); PO2 ABG 64 mmHg (80-95); pH ABG 7.44 (7.35-7.45)
[2022-01-24 06:04] LABS: Basophils # (auto) 0.04 K/uL (0-0.2); Basophils % (auto) 0.5 %; Eosinophils # (auto) 0.08 K/uL (0-0.50); Eosinophils % (auto) 1.1 %; Hematocrit (blood only) 49.1 % (40.1-51.0); Hemoglobin 15.2 g/dl (14.0-18.0); Immature Granulocytes # (auto) 0.02 K/uL (0.00-0.02); Immature Granulocytes % (auto) 0.3 %; Lymphocytes # (auto) 1.62 K/uL (1.2-3.4); Lymphocytes % (auto) 21.7 %; Mean Corpuscular Hemoglobin 28.6 pg (25.0-34.0); Mean Corpuscular Volume 92.3 fL (80.0-100.0); Mean Platelet Volume 11.1 fL (9.4-12.4); Monocytes % (auto) 10.7 %; Neutrophils # (auto) 4.91 K/uL (1.4-6.5); Neutrophils % (auto) 65.7 %; Platelet Count 159 K/uL (130-400); RDW Coefficient of Variation 15.1 % (11.5-14.5); RDW Standard Deviation 51.3 fL (36.4-46.3); Red Blood Count 5.32 M/uL (4.63-6.08); White Blood Count 7.47 K/ul (4.8-10.8)
[2022-01-24 06:08] LABS: Allen Test Pos (Pos)
[2022-01-24 06:29] LABS: Albumin Globulin Ratio 1.3 (0.9-2); BUN Creatinine Ratio 23.4 (10-20); Bilirubin,Total 1.4 mg/dl (0.2-1.0); Calcium 9.2 mg/dl (8.5-10.1); Creatinine Clr Calc Pharmacy 149.9 ml/min; Est GFR (African American) 109.6 ml/min; Est GFR (Non-African American) 94.6 ml/min; Globulin 3.2 gm/dl (2.5-4.0); Potassium 4.1 mmol/L (3.5-5.1); Total Protein 7.2 gm/dl (6.0-8.3)
--- NOTE | 2022-01-24 06:56 | Hospitalist Progress Note ---
Date of Service January 24, 2022 Assessment & Plan (1) Acute respiratory failure with hypoxia: Plan: Houston is a 66 year old male with hx of cataract surgery (pre-admission), morbid obesity, dyslipidemia, hypertension, Graves, CAD/AR 2010, and chronic venous in sufficiency who was admitted for acute respiratory failure with hypoxia following a cataract surgery 01/18/22. - Patient was admitted 01/18 for ARF w/ hypoxia and hypercapnia - Initial differential included CHF, pneumonia, JONATHAN, and OHS - CXR 01/18 showed bibasilar opacities which would clinically correlate with pneumonia - subjective clinical improvement with lungs CTAB on exam 01/24 - No pulmonary hx, patient quit smoking 30 years ago, had 10 pack year history - CTA suggested questionable filling deficit, US of LE negative for DVT (diminished liklihood of PE) - 01/21 pt. received Lasix with minimal improvement, his BNP was negative, CHF less likely - Pt. received 5 days Zosyn, transitioned to Rocephin/Azithromycin 01/22 for a 7 day course (Day 3/7), plan to discharge patient on Azithromycin monotherapy - Pt wears BiPAP overnight as inpatient, overnight pulse ox and ABG did not qualify patient for home BiPAP, will discharge patient on O2 by Nasal Canula, patient will need outpatient sleep study CXR 01/18/22 1. Cardiomegaly with pulmonary vascular congestion. 2. There are left greater than right bibasilar opacities, likely representing atelectasis. Correlate clinically for evidence of an infectious/inflammatory pneumonitis. Radiographic follow-up to resolution is recommended. CXR 01/20/22 1. Persistent bibasilar mostly linear consolidation suggestive of atelectasis. Pneumonia could appear similarly. 2. Cardiomegaly without pulmonary edema. CXR 01/21/22 1. Cardiomegaly without radiographic evidence of congestive failure. 2. Bibasilar opacities have not significantly changed from yesterday. (2) Arrhythmia, atrial: Plan: - Possible AFib vs. A Flutter on telemetry - Patient and note that an arrhythmia was mentioned at the outpatient eye surgery center prior to admission - Patient notes sensation of feeling 'off' periodically over the past year - Placed referral to Cardiology - appreciate recommendations regarding AFib/AFlutter workup and possible anticoagulation - Discussed anticoagulation (Elliquis) with the patient, patient interested in avoiding anticoagulation, risks vs. benefits were discussed (3) Morbid obesity: Plan: - BMI 44.6 kg/m, discussed with patient who endorses 20-30 lbs of weight gain in the last 2 years. - Likely contributing to patient's clinical presentation - Relayed the importance of incorporating 150 minutes of moderate intensity exercise per week with the addition of a healthy diet which includes whole vegetables, fruits and lean proteins. (4) Hypertension: Plan: - Continue metoprolol and losartan - Patient asymptomatic, no chest pain - Continue telemetry - Continue outpatient mgmt w/ PCP (5) Graves disease: Plan: - Per patient, recent TSH 0.85, no inpatient management - Will check d/t elevated HR and arrhythmias - Continue outpatient mgmt w/ PCP (6) Coronary artery disease: Plan: - Hx of AR in 2010, no acute concerns - Follows with Dr. Vazquez outpatient (last visit 01/2021) - Continue metoprolol and ASA (7) History of cataract surgery: Plan: - Uncomplicated procedure performed at [facility] surgery [place] 01/18/22 - Continue opthalmic drops - F/u with opthalmology outpatient day of or day following discharge Plan SDVT ppx:ASA 162 mg, alternate under consideration, ambulation as tolerated Code Status: Full Diet: Heart Healthy Diet Dispo: Telemetry Admission and Anticipated Discharge Date Admission Date: January 18, 2022 Supervising Physician Co-Signing Physician Notes I also saw the patient confirmed ramirez portions of the history and physical examination. I agree with the impression and plan as noted the resident documentation. Upon our mid afternoon exam, the patient was seated comfortably in bed with his at bedside. He has no acute complaints today although that he states he has been feeling "off" at times, intermittently, over the past year or so. He does note that he was recommended to get a sleep study about a decade ago but has not followed through. He notes that last night sleep with the BiPAP was the best sleep that has had in "years." Overnight telemetry shows what looks to be like atrial flutter, and also a strip that looks to be atrial fibrillation, although there is quite a bit of artifact as well. According to the who is also at bedside, she states that they mentioned atrial relation to her well the patient was at the surgery center for his cataract surgery. She also reports that there was mention of atrial fibrillation with the patient was in the emergency department, although this does not look to be documented in the record. He himself denies any sensation of heart palpitations. Again, he does note times when he feels "off" but no specific sensation of a fast heart rate, palpitations, or chest pain. Exam 139/93, 86, 18, 36.6, 90% on nasal cannula Pleasant alert. No acute distress Heart regular rate and rhythm Lungs clear with nonlabored respirations Data Hemoglobin 15.2, platelet count 159 ABG 7.44/54/64/73 Sodium 139, potassium 4.1, BUN 18, creatinine 0.77 Impression and plan Acute respiratory failure with hypoxia, pneumonia Suspect obstructive sleep apnea Clinically improving with antibiotics He felt significantly better with BiPAP overnight; he did have some degree of CO2 retention but again BiPAP was added so early in the night this likely had a beneficial effect. He will need an outpatient sleep study Question atrial fibrillation/flutter Questionable atrial fibrillation/flutter both urine telemetry and per the patient and his at the outpatient surgical center Discussed benefits/risk of anticoagulation in the setting of paroxysmal atrial fibrillation One option would be to start anticoagulation now pending outpatient work- upHolter monitorto see if his atrial fibrillation is not acutely ill Also, suspect that treating his sleep apnea would lessen his risk for atrial fibrillation Consult cardiology for evaluation of atrial fibrillation/flutter and recommendations for to coagulation/work-up Additional per resident documentation Subjective Houston is a 66 year old male with hx of cataract surgery (pre-admission), morbid obesity, dyslipidemia, hypertension, Graves, CAD/AR 2010, and chronic venous insufficiency who was admitted for acute respiratory failure with hypoxia following a cataract surgery 01/18/22. Today 01/24/22: - Patient seen at bedside 01/24 sitting in chair comfortably, states he is feeling well and has no acute concerns - He feels dyspnea is improved and he is no longer coughing - Seen this morning at 2L down from 7L yesterday - patient did not require O2 therapy at home - 2-step recommended no O2 therapy with rest and 2L with activity, but patient required 2L O2 at rest this morning due to low O2 sats (per nursing) - Patient is using BiPAP overnight and endorses improved sleep - Denies shortness of breath, chest pain, chest tightness, palpitations, cough, fever, nausea, or abdominal pain - Telemetry noted rates up to 120 overnight with possible transition between A Flutter and A Fib. - Patient notes 'flutter' post AR in 2010 and episodes of feeling 'off ' over the last year - Nursing has been unable to capture on EKG. Patient is tolerating treatment with Rocephin and Azithromycin, he is day 3/7. Review of Systems Review of Systems: As per HPI. Physical Exam Physical Exam: Gen: NAD, well appearing, alert, interactive Neck: Supple, No LAD, Normal ROM Resp: Non-labored, no wheezing/rhonchi/rales, CTAB CV: RRR, normal S1/S2, no M/R/G Abd: soft, non-distended, no TTP, normoactive bowels, no masses Extr: 2+ pulses at dorsalis pedis bilaterally, 2+ peripheral edema (R>L) Skin: Intact, evidence of bilateral venous insufficiency Results & Data Results & Data ([facility]) Vital Signs (Past 12 Hours) Vital Signs Temp Pulse Pulse Resp BP Pulse Ox Pulse Ox 01/24/22 02:06 60 91 01/24/22 03:57 36.5 C 90 22 128/89 89 L 01/23/22 23:36 36.7 C 87 18 134/92 92 01/23/22 20:00 01/23/22 21:36 95 H 82 L 01/23/22 19:36 110 H 20 90 O2 Del Method O2 Del Method O2 Flow Rate O2 Flow Rate 01/24/22 02:06 Nasal Cannula 2 01/24/22 03:57 Nasal Cannula 2 01/23/22 23:36 Nasal Cannula 01/23/22 20:00 Nasal Cannula 4 01/23/22 21:36 Room Air 01/23/22 19:36 Nasal Cannula 4 Resident Activity Tracking Resident Involvement: Resident Care Provided Care Provided: Adult [facility]
[2022-01-24] MEDS: BUDESONIDE 0.5 MG/2 ML VIAL (PULMICORT) NEB SCH ×2 (07:51→19:48)
[2022-01-24] MEDS: SODIUM CHLOR 7% 4 ML NEB NEB SCH ×2 (07:52→19:48)
[2022-01-24] MEDS: INSULIN ASPART PER UNIT SC SCH ×4 (07:57→20:51)
[2022-01-24] MEDS: ATORVASTATIN 40 MG TAB PO SCH (08:14)
[2022-01-24] MEDS: guaiFENesin 600 MG TABCR PO SCH ×2 (08:14→20:49)
[2022-01-24] MEDS: ASPIRIN 81 MG ECTAB PO SCH (08:14)
[2022-01-24] MEDS: LOSARTAN POTASSIUM 50 MG TAB PO SCH (08:14)
[2022-01-24] MEDS: METOPROLOL SUCC 25MG EXT REL TAB PO SCH (08:14)
[2022-01-24] MEDS: CYANOCOBALAMIN (B-12) 500 MCG TABLET PO SCH (08:14)
[2022-01-24] MEDS: PREDNISOLONE OP SCH ×4 (08:15→20:50)
[2022-01-24] MEDS: MOXIFLOXACIN OP SCH ×4 (08:15→20:50)
[2022-01-24] MEDS: BROMFENAC OP SCH ×4 (08:15→20:50)
[2022-01-24] MEDS: cefTRIAXone SODIUM 2,000 MG in DEXTROSE 5% 50 ML IV SCH (08:19)
[2022-01-24] MEDS: AZITHROMYCIN 500 MG in DEXTROSE 5% 250 ML IV SCH (08:52)
--- NOTE | 2022-01-24 18:49 | Cardiology Consultation ---
Date of Consultation January 24, 2022 Assessment & Plan (1) Paroxysmal SVT (supraventricular tachycardia): (2) Coronary artery disease: (3) Hypertension: (4) Dyslipidemia: (5) Dilated aortic root: Plan ASSESSMENT/PLAN: 1. SVT: Frequent paroxysmal SVT versus atrial tachycardia. Rhythm appeared quite regular and therefore doubt AFib. Repeat ECG. Would like to try to catch arrhythmia on a 12 lead ECG. Will hold home dose of metoprolol succinate 25 mg daily and start metoprolol tartrate 25 mg p.o. q.6 hours to see if it helps suppress arrhythmia. He appears to be asymptomatic. If ineffective, would consider electrophysiology input. Could consider diltiazem, antiarrhythmic therapy, or possibly ablation depending on clinical course. TSH is pending. Recommend echo. 2. CAD: No angina. Continue anti-platelet therapy, high-intensity statin therapy, beta-alfred, ARB. 3. Dilated aortic root: Continue beta-alfred. Avoid strenuous lifting for which the Valsalva maneuver is required. Annual surveillance. 4. Dyslipidemia: Continue high-intensity statin therapy. Goal LDL < 70. LDL has been well controlled. 5. Hypertension: Blood pressure has been mostly normotensive. Continue current regimen with adjustment of beta-alfred as above. 6. Disposition: On discharge, follow with Dr. Vazquez. Cardiology will evaluate tomorrow. Plan of care communicated with primary hospitalist service, Dr. Foss. Thank you for allowing me to participate in the care of your patient. Please call for any other questions or concerns. Sincerely, Chai Ramirez M.D. History of Present Illness Reason for Consultation: "lone vs parox a flutter" Requesting Physician: Kyrstyna Foss Attending Physician: Luis Castellanos DO History of Present Illness Mr. Grant is a very pleasant 66-year-old gentleman with history significant for CAD s/p [place] (2010) (unsuccessful PCI), hypertension, dyslipidemia, dilated aortic root, and prediabetes. 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 He was hospitalized on 01/18/2022 following cataract surgery when he was found to be hypoxic. Chest x-ray reported bibasilar pneumonia and he was treated with antibiotics. He states that for approximately 1 month leading up to surgery, he had upper respiratory symptoms including a productive cough with green sputum for weeks and in general congestion. Throughout the hospital stay, he has noted significant improvement in his upper respiratory symptoms. He denies shortness of breath any time, although he remains on 2 L of supplemental oxygen via nasal cannula. He was out of bed and walked in the hallway and denies palpitations or shortness of breath. He denies chest pain, syncope, worsening edema, melena, hematochezia, or hematuria. He used BiPAP overnight and states that it was the best sleepy has had in some time. Although not formally tested, he believes he has sleep apnea. During this hospital stay, he was noted to have episodes of elevated heart rate. There was also mention of arrhythmia at the outpatient cataract surgical center. He states that he has felt a flutter sensation many years ago but nothing like that recently. On telemetry, it has been noted that he is having frequent episodes of atrial arrhythmia, including this afternoon when he was seen. Despite this, he was completely asymptomatic in that regard. He takes metoprolol succinate 25 mg at home and tolerates it well. His rate-controlling medications have not been adjusted here. He has chronic lower extremity swelling on the right since ankle surgery years ago. He also has chronic left lower extremity swelling but believes his swelling is stable. Review of systems: As above. Review of systems otherwise negative/unremarkable. Family history: Positive for CAD. Social history: He quit smoking approximately 30 years ago. Occasional alcohol. He lives at home with his . His was present at the bedside. Allergies Allergy/AdvReac Type Severity Reaction Status Date / Time chlorhexidine Allergy Mild RASH Verified 01/18/22 19:29 Home Medications Medication Instructions Recorded Confirmed Type cyanocobalamin (vitamin B-12) 1,000 mcg PO QAM 03/24/20 01/18/22 History 1,000 mcg tablet (Vitamin B-12) nitroglycerin 0.4 mg sublingual 0.4 mg sublingual UD PRN Angina 12/18/20 01/18/22 Rx tablet #25 tabs atorvastatin 80 mg tablet 80 mg PO QAM #30 tabs 02/08/21 01/18/22 Rx losartan 50 mg tablet 50 mg PO QAM #90 tabs 05/10/21 01/18/22 Rx metoprolol succinate 50 mg 25 mg PO QAM #45 tabs 10/18/21 01/18/22 Rx tablet,extended release 24 hr metformin 500 mg tablet,extended 1,000 mg PO BID #360 tabs 01/17/22 01/18/22 Rx release 24 hr aspirin 81 mg tablet,delayed 162 mg PO DAILY 01/18/22 01/18/22 History release prednisolone 1 %-moxifloxacin 0.5 1 drp ophthalmic (eye) QID 01/18/22 01/18/22 History %-bromfenac 0.075 % eye drops susp Patient History Medical History (Updated 01/24/22 @ 18:45 by Ryan Ramirez MD) BPH (benign prostatic hyperplasia) Cataracts, bilateral Coronary artery disease Dilated aortic root Dyslipidemia Hypertension Myocardial infarction (01/08/11) 2010--on aspirin--follows with Dr. Vazquez On anticoagulant therapy 162 mg aspirin daily Prediabetes metformin daily Tubular adenoma of colon Umbilical hernia Surgical History (Updated 01/19/22 @ 02:32 by Huan Carrion MD) History of ankle surgery right ankle fusion--hardware in place History of appendectomy History of cardiac cath 12/2010 @ [facility]--no stents History of colonoscopy with polypectomy History of rotator cuff surgery left History of tooth extraction History of total hip replacement left Status post endovenous radiofrequency ablation of saphenous vein (11/23/16) Family History Father Myocardial infarction Coronary heart disease Mother Diabetes Stroke Sister Diabetes Aunt Colorectal cancer Other No family history of adverse response to anesthesia Denies family history of Ovarian cancer Prostate cancer Breast cancer Social History Smoking Status: Never smoker Second Hand Exposure: Yes (parents smoked); Hx Alcohol Use: Yes Alcohol type: beer Hx Substance Use: No Preferred Language: Chadian Communication Ability: Effective Advertising Sales Representative Required: No Beliefs That Will Affect Care: None marital status: Current Living Situation: Spouse current occupational status: retired How many Children do You have: 2 Feels Safe at Home: Yes Childhood Exposure to Second-Hand Smoke: Yes caffeine: No Dental Care, Regularly: Yes Physical Activity Frequency: Does not Exercise Seatbelt Use: always Sunscreen Use: Yes (when he goes to the beach) Assistive Devices: Cane Physical Exam Physical Exam: Gen.: No acute distress. Alert and oriented. HEENT: Anicteric sclera. Neck: Thick neck. No bruits. Normal carotid upstrokes bilaterally. Cardiac: No ventricular heave. Regular with occasional ectopy. Normal S1-S2. No murmurs, rubs, or gallops. Pulmonary: Decreased breath sounds, but otherwise clear to auscultation bilaterally without wheezes, rales, or rhonchi. Abdomen: Soft, nontender, nondistended, with normoactive bowel sounds. No bruits noted. Extremities: 2+ radial pulses bilaterally. 2+ posterior tibialis pulses bilaterally. Trace bilateral lower extremity edema, right > left. No cyanosis. Psychiatric: Affect appears appropriate. Results & Data ([facility]) Vital Signs (Past 12 Hours) Vital Signs Temp Pulse Pulse Pulse Pulse Pulse Resp 01/24/22 16:00 36.8 C 71 18 01/24/22 12:19 36.6 C 86 18 01/24/22 08:00 01/24/22 09:04 86 20 01/24/22 09:04 01/24/22 07:55 84 16 01/24/22 07:52 78 76 76 74 01/24/22 07:11 36.5 C 112 H 16 Resp Resp Resp Resp BP BP Pulse Ox 01/24/22 16:00 152/76 H 96 01/24/22 12:19 139/93 90 01/24/22 08:00 01/24/22 09:04 90 01/24/22 09:04 82 L 01/24/22 07:55 92 01/24/22 07:52 18 20 16 14 01/24/22 07:11 124/96 146/103 H 90 Pulse Ox Pulse Ox Pulse Ox Pulse Ox O2 Del Method O2 Flow Rate O2 Flow Rate 01/24/22 16:00 01/24/22 12:19 Nasal Cannula 01/24/22 08:00 Nasal Cannula 2 01/24/22 09:04 Nasal Cannula 2 01/24/22 09:04 Room Air 01/24/22 07:55 Room Air 01/24/22 07:52 90 85 L 92 89 L 2 01/24/22 07:11 Room Air Laboratory Results Laboratory Results - last 24 hr 01/23/22 01/24/22 01/24/22 19:58 05:53 05:53 WBC 7.47 RBC 5.32 Hgb 15.2 Hct 49.1 MCV 92.3 MCH 28.6 MCHC 31.0 L RDW Std Deviation 51.3 H RDW Coeff of Sara 15.1 H Plt Count 159 MPV 11.1 Immature Gran % (Auto) 0.3 Neut % (Auto) 65.7 Lymph % (Auto) 21.7 [place] % (Auto) 10.7 Eos % (Auto) 1.1 Baso % (Auto) 0.5 Neut # (Auto) 4.91 Lymph # (Auto) 1.62 [place] # (Auto) 0.80 Eos # (Auto) 0.08 Baso # (Auto) 0.04 Immature Gran # (Auto) 0.02 ABG pH ABG pCO2 ABG pO2 ABG HCO3 ABG O2 Saturation ABG Base Excess [place] Test Oxygen Given Sodium 139 Potassium 4.1 Chloride 100 Carbon Dioxide 33 H Anion Gap 6 BUN 18 Creatinine 0.77 Est Cr Clr Drug Dosing 149.9 Est GFR ( Amer) 109.6 Est GFR (Non-Af Amer) 94.6 BUN/Creatinine Ratio 23.4 H Glucose 103 H POC Glucose 97 Calcium 9.2 Total Bilirubin 1.4 H AST 20 ALT 17 Alkaline Phosphatase 67 Total Protein 7.2 Albumin 4.0 Globulin 3.2 Albumin/Globulin Ratio 1.3 01/24/22 01/24/22 01/24/22 05:53 07:25 11:31 WBC RBC Hgb Hct MCV MCH MCHC RDW Std Deviation RDW Coeff of Sara Plt Count MPV Immature Gran % (Auto) Neut % (Auto) Lymph % (Auto) [place] % (Auto) Eos % (Auto) Baso % (Auto) Neut # (Auto) Lymph # (Auto) [place] # (Auto) Eos # (Auto) Baso # (Auto) Immature Gran # (Auto) ABG pH 7.44 ABG pCO2 54 H ABG pO2 64 L ABG HCO3 37 H ABG O2 Saturation 94.0 ABG Base Excess 10.5 H [place] Test Pos Oxygen Given 2L Sodium Potassium Chloride Carbon Dioxide Anion Gap BUN Creatinine Est Cr Clr Drug Dosing Est GFR ( Amer) Est GFR (Non-Af Amer) BUN/Creatinine Ratio Glucose POC Glucose 89 104 H Calcium Total Bilirubin AST ALT Alkaline Phosphatase Total Protein Albumin Globulin Albumin/Globulin Ratio 01/24/22 16:44 WBC RBC Hgb Hct MCV MCH MCHC RDW Std Deviation RDW Coeff of Sara Plt Count MPV Immature Gran % (Auto) Neut % (Auto) Lymph % (Auto) [place] % (Auto) Eos % (Auto) Baso % (Auto) Neut # (Auto) Lymph # (Auto) [place] # (Auto) Eos # (Auto) Baso # (Auto) Immature Gran # (Auto) ABG pH ABG pCO2 ABG pO2 ABG HCO3 ABG O2 Saturation ABG Base Excess [place] Test Oxygen Given Sodium Potassium Chloride Carbon Dioxide Anion Gap BUN Creatinine Est Cr Clr Drug Dosing Est GFR ( Amer) Est GFR (Non-Af Amer) BUN/Creatinine Ratio Glucose POC Glucose 133 H Calcium Total Bilirubin AST ALT Alkaline Phosphatase Total Protein Albumin Globulin Albumin/Globulin Ratio Diagnostic Findings Telemetry personally reviewed: Sinus rhythm with PACs and SVT versus atrial tachycardia, sustained at times. CTA chest 01/21/2022: Questioned filling defects of subsegmental branches of the pulmonary artery within right lung favored to be artifactual per Radiology. Patchy airspace consolidation in lung bases, mildly improved. Bronchial wall thickening with bibasilar mucus plugging. Ascending thoracic aorta 5.1 cm aneurysmal dilation. Venous Doppler study 01/22/2022: Bilateral lower extremities with no DVT. ECGs personally reviewed: ECG 01/18/2022 at 4:28 p.m.: Sinus rhythm with PACs and PVCs 86 beats per minute. Possible inferior infarct. ECG 01/23/2022 at 8:28 p.m.: Sinus rhythm with PACs 90 beats per minute. Inferior infarct. Echo 12/11/2019: EF 45-50%. Hypokinesis of the inferolateral and lateral lawrence. Mildly dilated RV with normal systolic function. Biatrial dilation. No significant valvular abnormalities. Aortic root 5.1 cm. Medications Administered Current Inpatient Medications Acetaminophen (Acetaminophen 325 Mg Tab) 650 mg PO Q4H PRN PRN Reason: Pain or Fever Stop: 02/18/22 00:55 Last Admin: 01/19/22 18:28 Dose: 650 mg Albuterol (Albut/Ipratrop 3mg/0.5mg Neb 3 Ml Vial) 3 ml NEB Q4 PRN; Protocol PRN Reason: Shortness Of Breath Or Wheezing Stop: 02/18/22 08:37 Aspirin (Aspirin 81 Mg Ectab) 162 mg PO DAILY SHERRI Stop: 02/18/22 08:59 Last Admin: 01/24/22 08:14 Dose: 162 mg Atorvastatin Calcium (Atorvastatin 40 Mg Tab) 80 mg PO QAM [facility] Stop: 02/18/22 08:59 Last Admin: 01/24/22 08:14 Dose: 80 mg Budesonide (Budesonide 0.5 Mg/2 Ml Vial (Pulmicort)) 0.5 mg NEB BIDR [facility] Stop: 02/18/22 06:59 Last Admin: 01/24/22 07:51 Dose: 0.5 mg Cyanocobalamin (Cyanocobalamin (B-12) 500 Mcg Tablet) 1,000 mcg PO QAM [facility] Stop: 02/18/22 08:59 Last Admin: 01/24/22 08:14 Dose: 1,000 mcg Dextrose (Dextrose 50% 50 Ml Syringe) 25 - 50 ml IV UD PRN; Protocol PRN Reason: Hypoglycemia Protocol Stop: 02/18/22 00:55 Glucagon (Glucagon For Inj 1 Mg Vial) 1 mg SQ UD PRN; Protocol PRN Reason: Hypoglycemia Protocol Stop: 02/18/22 00:55 Glucose (Glucose 40% Gel 15 Gm Tube) 15 - 30 gm PO UD PRN; Protocol PRN Reason: Hypoglycemia Protocol Stop: 02/18/22 00:55 Glucose (Glucose 10 Tab/Tube) 4 - 8 tab PO UD PRN; Protocol PRN Reason: Hypoglycemia Treatment Stop: 02/18/22 00:55 Guaifenesin (Guaifenesin 600 Mg Tabcr) 1,200 mg PO Q12 SHERRI Stop: 02/18/22 00:55 Last Admin: 01/24/22 08:14 Dose: 1,200 mg Azithromycin 500 mg/ Dextrose 255 mls @ 125 mls/hr IV QAM [facility] Stop: 01/30/22 08:59 Last Infusion: 01/24/22 10:55 Dose: Infused Ceftriaxone Sodium 2,000 mg/ (Dextrose) 70 mls @ 140 mls/hr IV QAM [facility] Stop: 01/30/22 08:59 Last Infusion: 01/24/22 08:53 Dose: Infused Insulin Aspart (Insulin Aspart Per Unit) 0 units SC ACHS [facility] Stop: 02/18/22 02:29 Last Admin: 01/24/22 17:41 Dose: 1 units Losartan Potassium (Losartan Potassium 50 Mg Tab) 50 mg PO QAM [facility] Stop: 02/18/22 08:59 Last Admin: 01/24/22 08:14 Dose: 50 mg Metoprolol Succinate (Metoprolol Succ 25mg Ext Rel Tab) 25 mg PO QAM [facility] Stop: 02/18/22 08:59 Last Admin: 01/24/22 08:14 Dose: 25 mg Metoprolol Tartrate (Metoprolol Tartrate 25 Mg Tab) 25 mg PO Q6H [facility] Stop: 02/23/22 18:59 Miscellaneous (Carbohydrates For Hypoglycemia ) 15 - 30 gm PO UD PRN PRN Reason: Hypoglycemia Protocol Stop: 02/18/22 00:55 Nitroglycerin (Nitroglycerin Sl 0.4 Mg/Tab Tab) 0.4 mg SL UD PRN PRN Reason: Angina Stop: 02/18/22 00:55 Prednisolone- Moxiflox-Bromfen: Pt Own Med 1 each OP QID [facility] Stop: 02/19/22 08:59 Last Admin: 01/24/22 17:41 Dose: 1 drops Ondansetron HCl (Ondansetron Inj 2 Mg/Ml 2 Ml Vial) 4 mg IV Q6H PRN PRN Reason: Nausea Stop: 02/18/22 00:55 Sodium Chloride (Sodium Chlor 7% 4 Ml Neb) 4 ml NEB BIDR [facility] Stop: 02/18/22 18:59 Last Admin: 01/24/22 07:52 Dose: 4 ml PG Care Time/CCT Total # of Minutes Spent Total Time Spent with Patient: Total time spent is greater than 50% in coordination of care (as documented) at patient's floor/unit and/or counseling patient: Coding Level of Care Code 24746 Initial Inpt Care Lvl 3 Diagnoses Paroxysmal SVT (supraventricular tachycardia) I47.1 Coronary artery disease I25.10 Hypertension I10 Dyslipidemia E78.5 Dilated aortic root I77.810
[2022-01-24] MEDS: METOPROLOL TARTRATE 25 MG TAB PO SCH (20:49)
[2022-01-25] MEDS: METOPROLOL TARTRATE 25 MG TAB PO SCH ×3 (00:18→13:52)
--- NOTE | 2022-01-25 05:37 | Electrocardiogram Report ---
Test Reason : Blood Pressure : / mmHG Vent. Rate : 090 BPM Atrial Rate : 090 BPM P-R Int : 162 ms QRS Dur : 102 ms QT Int : 396 ms P-R-T Axes : 004 -10 060 degrees QTc Int : 484 ms Sinus rhythm with Premature atrial complexes Inferior-posterior infarct (cited on or before 08-JAN-2011) Abnormal ECG When compared with ECG of 19-JAN-2022 08:20, No significant change Confirmed by Ryan Ramirez ([id number]) on 01/25/2022 5:37:05 AM Referred By: REFERRED SELF Confirmed By:Ryan Ramirez
[2022-01-25] MEDS: BUDESONIDE 0.5 MG/2 ML VIAL (PULMICORT) NEB SCH (07:03)
[2022-01-25] MEDS: SODIUM CHLOR 7% 4 ML NEB NEB SCH (07:03)
[2022-01-25] MEDS: INSULIN ASPART PER UNIT SC SCH ×2 (08:40→11:51)
[2022-01-25] MEDS: guaiFENesin 600 MG TABCR PO SCH (08:43)
[2022-01-25] MEDS: ASPIRIN 81 MG ECTAB PO SCH (08:44)
[2022-01-25] MEDS: ATORVASTATIN 40 MG TAB PO SCH (08:45)
[2022-01-25] MEDS: CYANOCOBALAMIN (B-12) 500 MCG TABLET PO SCH (08:46)
[2022-01-25] MEDS: LOSARTAN POTASSIUM 50 MG TAB PO SCH (08:46)
[2022-01-25] MEDS: BROMFENAC OP SCH ×2 (08:48→13:53)
[2022-01-25] MEDS: PREDNISOLONE OP SCH ×2 (08:48→13:53)
[2022-01-25] MEDS: MOXIFLOXACIN OP SCH ×2 (08:48→13:53)
[2022-01-25] MEDS: cefTRIAXone SODIUM 2,000 MG in DEXTROSE 5% 50 ML IV SCH (08:50)
[2022-01-25] MEDS: AZITHROMYCIN 500 MG in DEXTROSE 5% 250 ML IV SCH (08:51)
--- NOTE | 2022-01-25 09:50 | Discharge Summary ---
Date of Service January 25, 2022 Admission HPI Per Admitting Provider The patient is a 66-year-old male with a past medical history including morbid obesity, dyslipidemia, impaired fasting glucose, hypertension, Graves' disease, CKD, chronic venous insufficiency, BPH and myocardial infarction. He reports that over the past 2 weeks he has been feeling somewhat short of breath and had a cough productive of yellow sputum. He was noted to have decreased oxygenation during his procedure earlier in the day today, was sent to the emergency department, and found to have hypoxia with pulse ox in 89%. Chest x-ray showed bibasilar pneumonia, left greater than right. In the emergency department patient received Zofran IV, Zosyn IV and DuoNeb. Admission Exam Per Admitting Provider The patient is AO 3, well developed and well nourished, normocephalic and atraumatic, lying in bed and in no acute distress. HEENT--PERRL, EOMI, mucous membranes and oropharynx dry. Neck--supple. No JVD. No bruits. Thyroid normal, trachea midline, no adenopathy. Heart--normal S1 and S2. No murmurs, rubs or gallops. Lungs--clear bilaterally, no respiratory distress, no accessory muscle use. Abdomen--normal bowel sounds and soft. Nontender. Nondistended. Morbidly obese Extremities--no cyanosis or clubbing. No edema. Dermatologic--normal skin turgor, normal color, no abnormal lymph nodes, no rash. Neurologic--cranial nerves II through XII grossly intact. Rheumatologic--normal range of motion. Psychiatric--normal affect. Principal Diagnosis Acute respiratory failure with hypoxia Discharge Exam Gen: NAD, well appearing, alert, interactive Neck: Supple, No LAD, Normal ROM Resp: Non-labored, no wheezing/rhonchi/rales, CTAB CV: RRR, normal S1/S2, no M/R/G Abd: soft, non-distended, no TTP, normoactive bowels, no masses Extr: 2+ pulses at dorsalis pedis bilaterally, 2+ peripheral edema (R>L) Skin: Intact, evidence of bilateral venous insufficiency Discharge Data Allergies Allergy/AdvReac Type Severity Reaction Status Date / Time chlorhexidine Allergy Mild RASH Verified 01/18/22 19:29 Consultations 01/18/22 19:41 ED Decision to Admit Stat 01/24/22 14:45 Consult Cardiology Routine Ordered Studies 01/19/22 14:28 CT chest diagnostic w/o con Urgent 01/21/22 19:02 CT angio chest PE protocol Routine 01/22/22 06:00 US venous doppler LE BI Routine 01/24/22 09:00 Echocardiogram, pending results (Order placed by Cardiology) Diabetes Follow up Patient is on Metformin 1000 mg PO BID at home for pre-diabetes management. Will continue home management. Advise patient to follow up with PCP regarding management of his glucose levels. Hospital Course (1) Acute respiratory failure with hypoxia: [place] is a 66 year old male with hx of cataract surgery (pre-admission), morbid obesity, dyslipidemia, hypertension, Graves, CAD/RI 2010, and chronic venous insufficiency who was admitted for acute respiratory failure with hypoxia following a cataract surgery 01/18/22. Patient was admitted 01/18 for ARF w/ hypoxia and hypercapnia. Initial differential included CHF, pneumonia, JONATHAN, and OHS. ON 01/18 chest xray showed bibasilar opacities, which would clinically correlated with pneumonia. Patient has no pulmonary history and quit smoking 30+ years ago after a 10 pack year history. CTA suggested a possible filling defect, but ultrasound of the lower extremity was negative for DVT, diminishing liklihood of pulmonary embolus. On 01/21 patient received Lasix and noted minimal improvement in symptoms, his BNP was negative, which decreased our concern for CHF. Ultimately, the patient received 5 days of Zosyn and was then transition to Rocephin/Azithromycin on 01/22. Patient was placed on BiPAP over night while inpatient and ultimately qualified for home BiPAP based on pulse ox and ABG. Patient continues to require 2L of oxygen by nasal canula. Patient noted subjective symptomatic improvement in his coughing and shortness of breath by 01/24 which continued on 01/25. Patient discharged on Azithromycin monotherapy 250 mg PO for 3 days. His BiPap and oxygen concentrator will be delivered to his home. (2) Arrhythmia, atrial: Tachyarrhythmia was noted on telemetry 01/23, Cardiology consulted. Suspected supraventricular tachycardia and recommended inpatient management with Metoprol tartrate 25 mg PO q6h and outpatient management with 100 mg Metoprolol succinate daily. Cardiology did not recommend managing patient with anticoagulation. He will follow up with their office tomorrow 01/26 for placement of a patient monitor and see Dr. Vazquez 02/18 for follow up and review of monitor results. (3) Morbid obesity: Patient presented with BMI of 44.6, this was discussed with patient who endorsed recent weight gain of 20-30 lbs. Patient's morbid obesity likely contributed to his condition. Discussed with patient the importance of incorporating 150 minutes of moderate intensity exercise per week with the addition of a healthy diet which includes whole vegetables, fruits and lean proteins. (4) Hypertension: Patient's metoprolol dosage was adjusted to 100 mg PO daily. Patient is to continue to take Losartan 50 mg as prescribed. Patient was encouraged to continue outpatient management of his hypertension with his PCP. Improved blood pressures were noted with increased dose of Metoprolol. (5) Graves disease: Patient's condition was stable and management was unchanged during hospital admission. TSH was assessed 01/25 and found to be 1.069. This was assessed due to elevated HR and arrhythmias, but was found to be normal. Recommended that patient continue outpatient management with his PCP. (6) Coronary artery disease: Patient has a history of an RI in 2010. No acute concerns were made and no changes presented during admission. Patient is to continue metoprolol, Aspirin, and statin as outpatient. He will follow up with Dr. Vazquez 02/18/22 (7) History of cataract surgery: Patient underwent an uncomplicated cataract surgery at [facility] 01/18/22. Opthalmic drops were continued while inpatient. He is to follow up with Opthalmology 1-2 days after hospital discharge. (8) Paroxysmal SVT (supraventricular tachycardia): (9) Pneumonia: Plan Code Status: Full Diet: Recommended whole food diet with fruits, vegetables, and lean proteins Dispo: Discharge to home with 2L Oxygen by Nasal Canula and overnight BiPAP Total Time Total Time Spent Total Time Spent (In Minutes): 35 mins Discharge Plan Discharge Items Patient Disposition: Home - Self-Care Reason For Visit: ACUTE RESP FAILURE WITH HYPOXIA, PNEUMONIA Discharge Diagnosis: Acute Hypoxic Respiratory Failure Pneumonia Supraventricular Tachycardia Condition on Discharge: Good Health Concerns: Continue to follow with your PCP regarding hypertension, Graves disease, obesity, arthritis, pre-diabetes, chronic venous insufficiency, and BPH. Continue to follow with your Spares Scheduler about supraventricular tachycardia and coronary artery disease. Goals: Maintain resolution of pulmonary symptoms and prevent recurrance. Prevention of tachycardia episodes with Metoprolol. Reduction on BMI to healthy range to optimize overall health. Activity: Resume your previous activity Lifting: Gradually increase as tolerated Bathing: No limitations Sexual Activity: When tolerated Exercise/Sports: Gradually increase as tolerated Driving/Machine Use: No limitations Weightbearing: Full weightbearing Non-emergency contact: Primary Care Provider Call non-emergency contact if: you have any medication questions, your symptoms worsen, you have a fever and your temperature is above 101 Follow-up/Referrals: David Vazquez MD [Physician] - (Already has appointments - ensure patient receives patient monitor) Arie Mejia MD [Primary Care Provider] - (Hospital Discharge follow up within 1-2 weeks. ) Diet: Regular Diet Comment: Encourage whole food diet containing fruits, vegetables, and lean proteins. Addtl Attending Provider Instructions: You were admitted after your cataract surgery 01/18 for acute respiratory failure with associated hypoxia (low oxygen levels), while you were here we ran some tests to determine what the cause of your low oxygen levels was. On chest X-ray it indicated that you had changes consistent with pneumonia in both of your lungs. So, while you were in the hospital you received oxygen therapy and antibiotics to treat both the low oxygen levels and suspected infection. Over the course of the last 7 days, your symptoms and physical exam improved, you are now only requiring 2 liters of oxygen (rather than 15L) and you have nearly completed your course of antibiotics. You originally received Zosyn, but were t hen switched to Rocephin and Azithromycin. I will have you continue taking Azithromycin 250 mg PO daily for three days. While you were here, it was also noticed that you were having rapid heart rates on the continuous patient monitor (telemetry). We consulted Cardiology and Dr. Alvarez and Dr. Vazquez came to see you. While you were in the hospital we had you on Metoprolol tartrate 25 mg PO every six hours. We agree that you can go home with Metoprolol succinate 100 mg PO extended release once a day at night. Cardiology will coordinate a heart monitor for you outpatient. They will see you in the office tomorrow. Dr. Vazquez will see you at your scheduled appointment 02/18/22. Please continue to work towards improving reducing your weight to a healthy BMI. While you were here, we discussed consuming a whole foods diet that is rich in fruits, vegetables and lean protein. It would also be beneficial for you to incorporate 150 minutes of moderate intensity exercise into your weekly routine, when you feel that your strength has returned from your hospital admission. Please follow up with your Primary Care Provider within the week and continue managing your hypertension, Grave's disease, and pre-diabetes with them. Pending Studies at Discharge: Yes Studies:: Echocardiogram Stand-Alone Forms: My [facility] Medications and DC Order Prescriptions: New metoprolol succinate 100 mg tablet extended release 24 hr 100 mg PO DAILY Qty: 30 1RF azithromycin 250 mg tablet 250 mg PO DAILY 3 Days Qty: 3 0RF Continued nitroglycerin 0.4 mg tablet, sublingual 0.4 mg SL UD PRN (Reason: Angina) Qty: 25 3RF atorvastatin 80 mg tablet 80 mg PO QAM Qty: 30 11RF losartan 50 mg tablet 50 mg PO QAM Qty: 90 3RF metformin 500 mg tablet extended release 24 hr 1,000 mg PO BID Qty: 360 3RF cyanocobalamin (vitamin B-12) [Vitamin B-12] 1,000 mcg Tablet 1,000 mcg PO QAM aspirin 81 mg Tablet,Delayed Release (Dr/Ec) 162 mg PO DAILY [id number] 1-0.5-0.075 % Drops,Suspension 1 drp OPHTHALMIC (EYE) QID Rx Instructions: PT HAS OWN BOTTLE. STARTED 01/18/22. Discontinued metoprolol succinate 50 mg tablet extended release 24 hr 25 mg PO QAM Qty: 45 3RF Discharge Orders: Discharge Order (Routine); Ordered 01/25/22 Ordered By: Krystyna Díaz/Other Patient Handouts: Supraventricular Tachycardia, Treating Pneumonia, Weight Management: Getting Started, Weight Management: Healthy Eating, CAD Admission Data Admit Date/Time: 01/18/22 20:38 Attending Provider: Luis Castellanos Admit Provider: Huan Carrion Primary Care Provider: Arie Mejia Other Providers: John Archer ; Jason Salvador ; Huan Carrion ; Ryan Ramirez Other Interventions: Discharge Summary Assessment (RN) Last Done: 01/25/22 14:59 Supervising Physician Co-Signing Physician Notes I also saw the patient confirmed ramirez portions of the history and physical examination. I agree with the impression and plan as noted the resident documentation. Exam 139/93, 103, 19, 36.9, 90% on room air Pleasant alert. No acute distress Heart regular rate and rhythm Lungs clear with nonlabored respirations Impression and plan Acute respiratory failure with hypoxia, pneumonia Suspect obstructive sleep apnea Complete course of azithromycin Home oxygen and BiPAP approved by insurance, tubular to his home on the day of discharge SVT/Atrial tachycardia Cardiology consultation appreciated Metoprolol succinate 100 mg every afternoon Follow-up with cardiology in outpatient for event monitor No need for anticoagulation Additional per resident documentation Resident Activity Tracking Resident Involvement: Resident Care Provided Care Provided: Adult Hospital Medicine
[2022-01-25 09:58] LABS: Hematocrit (blood only) 49.9 % (40.1-51.0); Hemoglobin 15.6 g/dl (14.0-18.0); Mean Corpuscular Hemoglobin 28.8 pg (25.0-34.0); Mean Corpuscular Hgb Conc 31.3 g/dL (32.0-36.0); Mean Corpuscular Volume 92.2 fL (80.0-100.0); Mean Platelet Volume 11.5 fL (9.4-12.4); Platelet Count 159 K/uL (130-400); RDW Coefficient of Variation 15.1 % (11.5-14.5); RDW Standard Deviation 51.5 fL (36.4-46.3); Red Blood Count 5.41 M/uL (4.63-6.08); White Blood Count 6.64 K/ul (4.8-10.8)
[2022-01-25 11:14] LABS: BUN Creatinine Ratio 19.5 (10-20); Calcium 9.5 mg/dl (8.5-10.1); Est GFR (African American) 104.2 ml/min; Est GFR (Non-African American) 89.9 ml/min; Magnesium 2.2 mg/dl (1.7-2.4)
--- NOTE | 2022-01-25 12:47 | Cardiology Progress Note ---
Date of Service January 25, 2022 Assessment & Plan (1) Paroxysmal SVT (supraventricular tachycardia): (2) Hypertension: (3) Pneumonia: Plan Patient with intermittent supraventricular tachycardia which is apparently asymptomatic and which is not demonstrating excessively high heart rate. Frequency of atrial runs diminishing on increased beta-alfred. Okay for discharge on metoprolol succinate 100 mg daily (up from his 25 mg daily prior dose), well use MCOT monitor to further evaluate efficacy of higher dose beta-alfred and to determine whether an antiarrhythmic is necessary. BP normotensive. Continue aspirin and statin given history of prior infarct. Cardiology follow-up in the office as planned in early February (less than a month from now). Admission and Anticipated Discharge Date Admission Date: January 18, 2022 Subjective Patient is doing well this morning, no chest pain, subjective palpitations, lightheadedness, presyncope, or syncope. No dyspnea at rest, does note dyspnea with exertion. Telemetry showed sinus rhythm with occasional short runs of supraventricular tachycardia (rates 110-130 bpm during tachycardia, otherwise normal heart rate). Physical Exam Physical Exam: No distress. BP normotensive. Pulse 80 bpm and regular. Unlabored respirations. Skin: no ecchymoses or generalized lesions. HEENT: unremarkable. Neck: no JVD or carotid bruits. Lungs: Moderately decreased breath sounds without obvious wheezing or crackles. No accessory muscle use. Cardiac: regular rhythm, 2/6 systolic ejection murmur right upper sternal border which is nonradiating, no diastolic murmur or gallop. Abdomen: benign. Extremities: Trace ankle edema, pulses intact. Neurologic: normal affect, nonfocal. Results & Data ([facility]) Vital Signs (Past 12 Hours) Normal electrolytes, BUN 17, creatinine 0.87. PG Care Time/CCT Total # of Minutes Spent Total Time Spent with Patient: Total time spent is greater than 50% in coordination of care (as documented) at patient's floor/unit and/or counseling patient: Coding Level of Care Code 91119 Subseq Hosp Care Lvl 3 Diagnoses Paroxysmal SVT (supraventricular tachycardia) I47.1 Hypertension I10 Pneumonia J18.9 Laterality: bilateral Lung location: unspecified part of lung Pneumonia type: due to unspecified organism (1) Pneumonia Laterality: bilateral Lung location: unspecified part of lung Pneumonia type: due to unspecified organism Qualified Code(s): J18.9 - Pneumonia, unspecified organism
--- NOTE | 2022-01-25 21:10 | XCELERA ---
[id number]
--- NOTE | 2022-01-26 05:44 | Electrocardiogram Report ---
Test Reason : Blood Pressure : / mmHG Vent. Rate : 108 BPM Atrial Rate : 108 BPM P-R Int : 180 ms QRS Dur : 104 ms QT Int : 354 ms P-R-T Axes : -14 -23 042 degrees QTc Int : 474 ms Sinus tachycardia with occasional Premature ventricular complexes Premature atrial complexes with atrial run Possible Lateral infarct (cited on or before 08-JAN-2011) Inferior infarct (cited on or before 08-JAN-2011) Abnormal ECG When compared with ECG of 23-JAN-2022 20:28, Premature ventricular complexes are now Present Confirmed by Ryan Ramirez ([id number]) on 01/26/2022 5:44:03 AM Referred By: REFERRED SELF Confirmed By:Ryan Ramirez
--- NOTE | 2022-01-26 05:45 | Electrocardiogram Report ---
Test Reason : Blood Pressure : / mmHG Vent. Rate : 138 BPM Atrial Rate : 138 BPM P-R Int : 158 ms QRS Dur : 100 ms QT Int : 304 ms P-R-T Axes : 000 -30 032 degrees QTc Int : 460 ms Possible Atrial tachycardia Left axis deviation Inferior infarct (cited on or before 08-JAN-2011) Possible Anterolateral infarct (cited on or before 08-JAN-2011) Abnormal ECG When compared with ECG of 24-JAN-2022 18:31, Premature ventricular complexes are no longer Present Confirmed by Ryan Ramirez ([id number]) on 01/26/2022 5:45:15 AM Referred By: REFERRED SELF Confirmed By:Ryan Ramirez
== END 2022-01-25 15:45 | disposition home or self-care (01) | DRG 193 ==
LOC: ED 16:17 → EDINP 20:38 → SUATTDRO 20:38 → EDINP 01-19 01:00 → 2S 01-19 21:20
DX: E66.01 Morbid (severe) obesity due to excess calories; I25.10 Atherosclerotic heart disease of native coronary artery without angina pectoris; E05.00 Thyrotoxicosis with diffuse goiter without thyrotoxic crisis or storm; I47.1 Supraventricular tachycardia; Z87.891 Personal history of nicotine dependence; Z79.84 Long term (current) use of oral hypoglycemic drugs; J96.01 Acute respiratory failure with hypoxia; Z68.41 Body mass index [BMI] 40.0-44.9, adult; R73.01 Impaired fasting glucose; I10 Essential (primary) hypertension; J18.9 Pneumonia, unspecified organism; I77.810 Thoracic aortic ectasia; E78.5 Hyperlipidemia, unspecified; I25.2 Old myocardial infarction; Z79.82 Long term (current) use of aspirin

== ENCOUNTER 2023-03-29 05:17 | Observation (INO) ==
--- NOTE | 2023-03-13 10:12 | Anesthesiology Consultation ---
Date of Service March 13, 2023 Assessment & Plan (1) Encounter for pre-operative examination: Chart Review Chart Review: Acceptable Risk for Surgery (pending PCP and cardio clearance ) and Patient seen in Pre Admission Testing - Awaiting PCP clearance (03/16/23) ([place]) and cardio clearance (03/24/23) ([place]) - Patient is NOT an OPJ candidate due to comorbidities - Check BSG AM DOS Chlorhexidine allergy -rash - no wipes given at PAT appt Per PAT appt on 03/13/23, no recent illness/disease exposures, illness related symptoms, or recent illness/disease positive tests. Will leave to surgeon's discretion if preop Covid testing needed Teaching & Discussion Pre-Anesthesia Teaching/Discussion Notes: Instructed NPO after midnight before surgery,except medications with 15 cc of water. Medication instructions provided according to the [facility] guidelines. History Surgery Operation Date: 03/29/23 08:50 Proposed Procedures p Right Total Hip Arthroplasty - Rl Tran MD Height/Weight Height: 6 ft 4 in Weight: 155.9 kg Allergies Allergy/AdvReac Type Severity Reaction Status Date / Time chlorhexidine Allergy Mild RASH Verified 03/13/23 08:20 Medications Home Medications Medication Instructions Recorded Confirmed Last Taken cyanocobalamin (vitamin B-12) 1,000 mcg PO QAM 03/24/20 03/13/23 01/18/22 1,000 mcg tablet (Vitamin B-12) nitroglycerin 0.4 mg sublingual 0.4 mg sublingual UD PRN Angina 12/18/20 03/13/23 Unknown tablet #25 tabs aspirin 81 mg tablet,delayed 162 mg PO QAM 01/18/22 03/13/23 01/18/22 release losartan 50 mg tablet 50 mg PO QAM #90 tabs 07/20/22 03/13/23 Unknown metformin 500 mg tablet,extended 1,000 mg PO BID #360 tabs 07/20/22 03/13/23 Unknown release 24 hr CPAP Machine #1 ea 10/05/22 11/16/22 Unknown amoxicillin 500 mg capsule 2,000 mg PO ONCE #4 caps 10/24/22 03/13/23 Unknown triamcinolone acetonide 0.1 % 1 applic topical UD 11/16/22 03/13/23 Unknown topical cream (Triderm) metoprolol succinate 100 mg 100 mg PO QPM 03/13/23 Unknown tablet,extended release 24 hr metoprolol succinate 50 mg 50 mg PO QAM 03/13/23 03/13/23 Unknown tablet,extended release 24 hr omega-3 fatty acids 1,000 mg PO QAM 03/13/23 03/13/23 Unknown atorvastatin 80 mg tablet 80 mg PO QAM #90 tabs 03/14/23 Unknown Past Medical History Medical History (Updated 03/13/23 @ 11:00 by Neli Wilson PA-C) Benign prostate hyperplasia Chronic venous insufficiency s/p right LE ablation- somewhat effective Coronary artery disease 100 % circumflex lesion, 20-30% LAD, EF 45% in 2010- unsuccessful PCI - treated medically currently Dilated aortic root monitoring- 5.1cm in large habitus individual (only considered mild dilation per cardio records) Dyslipidemia Hypertension Morbid obesity Myocardial infarction (01/08/11) 2010--on aspirin--follows with Dr. Vazquez Paroxysmal SVT (supraventricular tachycardia) Per cardio records Prediabetes metformin daily Sleep apnea cpap Tubular adenoma of colon s/p polypectomy - stable currently Umbilical hernia Stable in size-no pain Exercise / Class Metabolic Activity II 4-5 Yardwork/Stairs/Walk up hill (one flight of stairs - no chest pain or SOB ) Past Family History Family History Father Myocardial infarction Coronary heart disease Mother Diabetes Stroke Sister Diabetes Aunt Colorectal cancer Other No family history of adverse response to anesthesia Denies family history of Ovarian cancer Prostate cancer Breast cancer Past Surgical History Surgical History History of ankle surgery right ankle fusion--hardware in place History of appendectomy History of cardiac cath 12/[address] [facility]--no stents History of cataract surgery 01/18/23- at [facility]- had hypoxia (had underlying/unknown pneumonia)- admitted to [facility]- later diagnosed with JONATHAN and uses CPAP History of colonoscopy with polypectomy History of rotator cuff surgery left History of tooth extraction History of total hip replacement left Status post endovenous radiofrequency ablation of saphenous vein (11/23/16) Past Anesthesia History No Hx of Anesthesia Complications (with exception to cataract extraction - on 01/18/22- at [facility]- had hypoxia (had underlying/unknown pneumonia)- admitted to [facility]- later diagnosed with JONATHAN and uses CPAP) and No Family Hx of Anesthesia Complications History of PONV No Hx of PONV and No Hx of Motion Sickness Social History Smoking Status: Never smoker Do You Dip or Chew Tobacco: No Hx Alcohol Use: Yes Alcohol type: beer alcohol intake frequency: holidays/special occasions only Hx Substance Use: No substance use type: does not use Review of Systems Patient denies chest pain, shortness of breath, dyspnea on exertion, reflux, c ough, wheezing, palpitations. No hx of seizures, stroke. No hx of blood clots or blood transfusions Physical Exam Vital Signs VITALS BP 148/91 P 70 TEMP 98.4 SP02 93% RESP 16 Constitutional no acute distress ENMT Mouth: no TMJ clicking Thyromental Distance: > or= 3.5 Finger Breadths (3.5) Mallampati Class: II Missing molars and side teeth Permanent implants top right side Neck + short neck and + thick neck; neck extension not limited Respiratory normal respiratory effort; no respiratory distress Auscultation: lungs clear to auscultation bilaterally; no wheezes Cardiovascular Rate/Rhythm: regular rate and regular rhythm Heart Sounds: no murmur Vessels: no carotid bruit Occ skipped beat Musculoskeletal Spine: no pain with cervical ROM Extremities: extremities normal to inspection Psychiatric Orientation: alert Lab Results Anesthesia Preop Results Results Anesthesia Widget: WBC 8.22 K/ul (4.8-10.8) 03/13/23 Hgb 15.3 g/dl (14.0-18.0) 03/13/23 Hct 45.5 % (42.0-52.0) 03/13/23 Plt 189 K/uL (130-400) 03/13/23 Na 139 mmol/L (136-145) 03/13/23 K 4.0 mmol/L (3.5-5.1) 03/13/23 Cl 106 mmol/L (98-107) 03/13/23 CO2 27 mmol/L (21-32) 03/13/23 BUN 13 mg/dl (6-23) 03/13/23 Creat 0.66 mg/dl (0.6-1.4) 03/13/23 Glucose Level 89 mg/dl (70-99(Fasting)) 03/13/23 PT 11.8 Seconds (9.0-12.0) 03/13/23 PTT 26.3 Seconds (21.0-31.0) 03/13/23 INR 1.1 (0.9-1.1) 03/13/23 HA1c 6.3 % (4.5-5.6) H 03/13/23 Urine Color Yellow 03/13/23 Urine Appearance Clear (Clear) 03/13/23 Urine pH 5.5 (4.5-7.5) 03/13/23 Urine Specific [place] 1.018 (1.000-1.030) 03/13/23 Urine Protein Negative (Negative) 03/13/23 Urine Glucose (UA) Negative (Negative) 03/13/23 Urine Ketones Negative (Negative) 03/13/23 Urine Blood Negative (Negative) 03/13/23 Urine Nitrite Negative (Negative) 03/13/23 Urine Bilirubin Negative (Negative) 03/13/23 Urine Urobilinogen Negative (Negative) 03/13/23 Urine Leukocyte Esterase Negative (Negative) 03/13/23 Blood Type B Positive 03/13/23 Antibody Screen NEGATIVE 03/13/23 Testing Electrocardiogram Date: 03/13/23 NSR with sinus arrythmia at 63bpm Lateral infarct (cited on or before January 08, 2011) Inferior infarct (cited on or before January 08, 2011) Nonspecific T wave abnormality When compared to EKG from January 24inus rhythm has replaced ectopic atrial rhythm, ventricular rate has decreased by 75 bpm, questionable change in initial forces of anterior leads per cardiology Chest X-Ray Date: 03/13/23 FINDINGS: No pneumothorax. No pleural effusions. A few bibasilar linear densities favor subsegmental atelectasis or scarring. Otherwise, the lungs are clear. No evidence for pulmonary edema. The cardiac silhouette remains borderline enlarged. Tortuous thoracic aorta with aneurysmal dilatation of the ascending thoracic aorta again noted. IMPRESSION: 1. No significant change compared to the prior study. No acute process within the chest. 2. Tortuous thoracic aorta with persistent aneurysmal dilatation of the ascending thoracic aorta. This is better appreciated on the prior chest CT. (Please see below chest CTA from 01/21/22- cardio aware and monitoring) Echocardiogram Date: 01/25/22 EF: 50-55% Other Findings: + LVH (Severe/concentric) Valvular Disease: + no significant valvular disease Low normal systolic function Severe hypokinesis to akinesis of inferior lateral wall. Hypokinesis of the basal to mid anterior lateral wall. Mildly dilated RV with normal systolic function. Mild left atrial dilation. Normal estimated RVSP. Dilated aortic root; 5.1 cm Similar findings compared to prior study on 12/11/2019 Other Testing MCT/Event monitor 02/24/22= multiple episodes of PSVT (rapid/regular rhythm). No convincing episodes of atrial fibrillation. 2 episodes of ventricular tachycardia. Several brief pauses, longest 2.3 seconds. Several brief episodes of sinus bradycardia, minimum 35 bpm. Frequent PACs. Sporadic PVCs. Chest CTA 01/21/22= Limited evaluation of the pulmonary arterial tree as above. There are questioned filling defects within subsegmental branches of the pulmonary artery within the right lung as above which are favored to be artifactual. Pulmonary emboli however could appear similarly. Correlation with lower extremity Doppler recommended. No central pulmonary emboli are present. Linear and patchy airspace consolidation in the lung bases is similar to mildly improved from the study obtained 2 days earlier. Findings may represent atelectasis versus pneumonia. Bronchial wall thickening with bibasilar mucous plugging. Cardiomegaly with aneurysmal dilation of the ascending thoracic aorta, 5.1 cm. (had venous doppler 01/21/22 that was negative for DVT)
--- NOTE | 2023-03-13 10:21 | PAT Medication Instructions ---
Medication Instructions Date of Service March 13, 2023 Home Medications Medication Instructions Recorded nitroglycerin 0.4 mg sublingual 0.4 mg sublingual UD PRN Angina 12/18/20 tablet #25 tabs atorvastatin 80 mg tablet 80 mg PO QAM #90 tabs 03/18/22 losartan 50 mg tablet 50 mg PO QAM #90 tabs 07/20/22 metformin 500 mg tablet,extended 1,000 mg PO BID #360 tabs 07/20/22 release 24 hr CPAP Machine #1 ea 10/05/22 amoxicillin 500 mg capsule 2,000 mg PO ONCE #4 caps 10/24/22 cyanocobalamin (vitamin B-12) 1,000 mcg tablet (Vitamin B-12) 1,000 mcg PO QAM nitroglycerin 0.4 mg sublingual tablet 0.4 mg sublingual UD PRN aspirin 81 mg tablet,delayed release 162 mg PO QAM atorvastatin 80 mg tablet 80 mg PO QAM losartan 50 mg tablet 50 mg PO QAM metformin 500 mg tablet,extended release 24 hr 1,000 mg PO BID amoxicillin 500 mg capsule 2,000 mg PO ONCE triamcinolone acetonide 0.1 % topical cream (Triderm) 1 applic topical UD metoprolol succinate 100 mg tablet,extended release 24 hr 100 mg PO QPM metoprolol succinate 50 mg tablet,extended release 24 hr 50 mg PO QAM omega-3 fatty acids 1,000 mg PO QAM Continue as directed amoxicillin 500 mg capsule 2,000 mg PO ONCE nitroglycerin 0.4 mg sublingual tablet 0.4 mg sublingual UD PRN(if needed) STOP taking 2 weeks before surgery (or as soon as possible if surgery is within 2 weeks) omega-3 fatty acids 1,000 mg PO QAM STOP taking 24 hours before surgery triamcinolone acetonide 0.1 % topical cream (Triderm) 1 applic topical UD DO NOT take the morning of surgery cyanocobalamin (vitamin B-12) 1,000 mcg tablet (Vitamin B-12) 1,000 mcg PO QAM losartan 50 mg tablet 50 mg PO QAM metformin 500 mg tablet,extended release 24 hr 1,000 mg PO BID Take morning of surgery With a small sip of water, OTHERWISE NOTHING TO EAT OR DRINK AFTER MIDNIGHT: aspirin 81 mg tablet,delayed release 162 mg PO QAM (unless directed otherwise by surgeon) atorvastatin 80 mg tablet 80 mg PO QAM metoprolol succinate 50 mg tablet,extended release 24 hr 50 mg PO QAM Take evening before surgery metformin 500 mg tablet,extended release 24 hr 1,000 mg PO BID metoprolol succinate 100 mg tablet,extended release 24 hr 100 mg PO QPM Other Notes If you have any questions please call us at [phone] or [phone] or [phone] or [phone]
[2023-03-29] MEDS ORDERED: LR 60ML/HR IV SCH (06:00)
[2023-03-29] MEDS ORDERED: ROPIVACAINE 0.5% HCL/PF 150 MG, BUPIVACAINE 0.75% MPF 20 ML, EPINEPHrine 0.15 MG, Ketor... INFIL SCH (06:00)
[2023-03-29] MEDS ORDERED: TRANEXAMIC ACID 1,000 MG **IV Pre-op IV SCH (06:00)
[2023-03-29] MEDS ORDERED: LR 500ML BOLUS, THEN 15ML/HR IV SCH (06:00)
[2023-03-29] MEDS ORDERED: BUPIVACAINE 0.5 % 5 MG/1 ML PF 10ML VIAL ONE (06:20)
[2023-03-29] MEDS ORDERED: MIDAZOLAM HCL 1 MG/ML 2ML VIAL ONE ×2 (06:25→07:44)
[2023-03-29] MEDS ORDERED: fentaNYL citrate PF 100 MCG/2 ML VIAL ONE (06:25)
[2023-03-29] MEDS ORDERED: PROPOFOL IV EMULSION 10 MG/ML 20 ML VIAL IV ONE ×4 (06:26→08:20)
--- NOTE | 2023-03-29 06:27 | History & Physical Bridge Note ---
Date of Service March 29, 2023 History & Physical Bridge Note I have examined the patient, reviewed the History & Physical and in the interval since the performance of the History & Physical I have noted the following changes of clinical significance: consent and site verified.no changes noted
[2023-03-29] MEDS ORDERED: ORTHO JOINT ANESTHETIC ONE (06:35)
[2023-03-29] MEDS ORDERED: KETAMINE 50 MG/5 ML SYRINGE ONE (07:04)
[2023-03-29] MEDS ORDERED: ONDANSETRON INJ 2 MG/ML 2 ML VIAL ONE (07:14)
[2023-03-29] MEDS ORDERED: ATROPINE SULFATE 0.1 MG/ML 10ML SYR IV PRN (07:20)
[2023-03-29] MEDS ORDERED: ePHEDrine sulfate 50 MG/ML AMP IV PRN (07:20)
[2023-03-29] MEDS ORDERED: PHENYLEPHRINE 100MCG/ML 5ML SYR ONE (07:24)
[2023-03-29] MEDS ORDERED: ePHEDrine sulfate 50 MG/5 ML SYR ONE (07:24)
[2023-03-29] MEDS ORDERED: VANCOMYCIN HCL 1000MG/20ML VIAL ONE (08:16)
--- NOTE | 2023-03-29 08:51 | Post Operative Brief Note ---
Immediate Post Op Note v1 Date of Surgery March 29, 2023 Pre & Post Diagnosis Operation preop diagnosis severe osteoarthritis right hip Postop diagnosis severe osteoarthritis right hip date: 03/29/23 07:00 <No data on this case meets the specified criteria> I identified the patient and participated in the time-out.: Yes Procedure Operation noncemented right total replacement with dual mobility cup Date: 03/29/23 07:00 <No data on this case meets the specified criteria> Surgeon Rl Tran [facility] resident or fellow available Estimated Blood Loss 200 Findings Consistent with Post-Op Diagnosis Severe osteoarthritis more deformity Fluids See anesthesia report
--- NOTE | 2023-03-29 08:54 | Operative Report ---
Post Operative Report Pre & Post Diagnosis Operation Date: Severe osteoarthritis right hip postop diagnosis same 03/29/23 07:00 <No data on this case meets the specified criteria> I identified the patient and participated in the time-out.: Yes Procedure Noncemented right total replacement with dual mobility cup Operation Date: 03/29/23 07:00 <No data on this case meets the specified criteria> Surgeon Rl Tran MD Nursery Laborer [place] no resident or fellow available Estimated Blood Loss 200 Findings Consistent with Post-Op Diagnosis Severe deformity Fluids See anesthesia report Specimens Bone pathology Drains None Complications None Indications Severe pain Description of Procedure After the patient was appropriate notified site verified consent verified antibiotics confirmed to be given the patient was placed in the left lateral decubitus position after markers were placed on both malleoli and the left knee. An appropriate exposure made in the patient's size was made. Sharp dissection carried through the skin blunt dissection down to the fascia this was incised under direct vision. Charnley was placed. Care was taken to sweep away the sciatic nerve. The wound was quite deep. The short external rotators were released. The capsule was then teed the hip was dislocated there was severe deformity of the head it was resected. Anterior capsule released exposure of the acetabulum carried out. Serial reaming carried up to a size 60 and 60 cup impacted into appropriate inclination and anteversion. It was then secured with an additional 6.5x30 screw with excellent purchase. Osteophytes were removed and the dual mobility liner was seated. Femur was then flexed and internally rotated proximal femur. With the rongeur a final cigar and box examiner canal finder lateralizing rasp and serial broaching up to a size 10 trial reduction was then carried out appropriate reduction was obtained and the hip was stable in all planes with the appropriate mobility implants. The leg lengths were equal. Remaining trial implants were then removed. Wound was irrigated with Betadine and Pulsavac. Permanent stem and head proceeded the hip was reduced and was stable in all planes the leg lengths were excellent. Wound was then closed using #2 Vicryl for the capsule for the short external rotators and for the deep fascia and also for the deep fat superficial layer was then closed with 2-0 Vicryl standstill clips and retention sutures with #1 Prolene. Appropriate dressing applied the patient transferred recovery in satisfactory addition he tolerated the procedure well. EBL was roughly 200 cc crystalloid per anesthesia bone pathology pending. DVT prophylaxis per protocol. Summary of implants [employer] implants 60 acetabular shell with whole limb later 30x6.5 screw 60x51 metal liner 10 standard Tri-Lock 51 ball 28+1.5 ceramic head. And dictation thank you I attest to the content of the Intraoperative Record and any orders documented therein. Any exceptions are noted below.
--- NOTE | 2023-03-29 08:58 | Discharge Summary ---
Date of Service March 30, 2023 Admission HPI Per Admitting Provider Admitted for severe right hip pain. Principal Diagnosis Severe osteoarthritis right hip with marked deformity and stiffness Discharge Data Allergies Allergy/AdvReac Type Severity Reaction Status Date / Time chlorhexidine Allergy Mild RASH Verified 03/29/23 05:47 Vaccinations None Consultations None Procedures Performed Operation Date: 03/29/23 07:00 <No data noncemented right total replacement with dual mobility cup on this case meets the specified criteria> Ordered Studies Postop x-rays Hospital Course (1) Status post right hip replacement: Continue care pathway case management to follow DVT prophylaxis per protocol. Plan Follow care pathway for total hip replacement Total Time Total Time Spent Total Time Spent (In Minutes): 5 minutes Discharge Plan Discharge Items Patient Disposition: Home - Home Health Services Reason For Visit: Right Hip Degenerative Joint Disease Discharge Diagnosis: Right hip s/p total hip replacement Condition on Discharge: Good Activity: Per Instructions section Lifting: Wait until after follow-up appointment Bathing: Keep incision dry Sexual Activity: Wait until after follow-up appointment Exercise/Sports: Wait until after follow-up appointment Driving/Machine Use: No driving until cleared by Dr. Tran Weightbearing: Full weightbearing Non-emergency contact: Surgeon Call non-emergency contact if: you have any medication questions, your pain is not controlled, your temperature is above 101, your temperature is above 101.5, your wound has increased redness, your wound has increased drainage and your wound pain has increased Follow-up/Referrals: Arie Mejia MD [Primary Care Provider] - Diet: Carb Consistent or DM2 Addtl Attending Provider Instructions: New Medicine: * You will likely be taking one or more of these medicines: 1. Percocet - Take, as directed, when you need it, every four to six hours to control your pain. 2. Iron Sulfate - Take 1 time each day for the month after surgery to help you replace the blood lost during surgery. 3. Coumadin - Thins your blood to lessen the chance of forming a blood clot. The dose of this is different for each person and is based on your blood tests that are done twice a week. * The most common side effects of pain medicine and iron are nausea and constipation. If nausea or constipation is too much of a problem or if you have any questions about your new medicines or doses, call [facility] at . We will try to help you manage these issues. "VERY IMPORTANT TO READ AND REVIEW" Blood Clots and Blood Thinning Medicine: * You are given Coumadin during the immediate post-operative period to lessen the risk of blood clots forming in your legs and/or lungs. Coumadin is usually given for six weeks after surgery. * The prescription is for 2 mg tablets. At discharge, you should understand your dose and take it all at the same time every day, preferably after dinner. * You need to get your blood checked 1 - 2 times per week for six weeks, or as directed. * If your dose needs to change, we will call you. Do not take your medication on the day of the blood test until we call you. * If you don't hear from us after your blood draws, keep taking the same dose. Pain: * The immediate post-operative period after hip replacement surgery is often quite painful. * You are given a prescription for pain medicine. You should take it, as directed, when you need it, especially before physical therapy and before going to bed. Pain that interferes with sleep is very common and can last several months. * You will likely need pain medicine for the first two to four weeks. It will not stop all of the pain. The pain will lessen and as you feel better, you may change to milder pain medicine such as Tylenol. * The most common side effects of pain medicine are nausea and constipation, so don't take more than you need. Physical Therapy: * Follow the "Hip Precautions Instructions." * In some cases, the criminal justice social worker at the hospital will arrange to have a therapist come to your house for the first couple of weeks to help you learn these skills. * You need to practice on your own or with the help of a family member as needed. * When you learn these skills, most of the therapy can be done on your own. Home Exercise: * You were shown a series of exercises in the hospital. Do these exercises three to four times each day including the exercises you were shown in physical therapy. Walking: * Get up and walk several times each day. For the first four weeks, try not to stand or walk for more than one hour at a time. If you do stand or walk for more than one hour, you will not hurt anything, but your leg will likely swell. * As you feel comfortable, you may change from the walker or crutches to a cane and then to independent walking. SELF CARE INSTRUCTIONS AFTER TOTAL HIP REPLACEMENT Until the incision and soft tissues around your hip have healed, there is a possibility that the hip prosthesis could dislocate. A. Observe the following precautions to prevent dislocation: 1. Don't bend your hip greater than 90 degrees. 2. Avoid crossing your legs or ankles while standing or lying. 3. Sit with your feet placed 6 inches apart. 4. When sitting, keep your knees below your hips. Sit on a firm surface, avoid deep, soft chairs and couches. Use an elevated toilet seat in the bathroom. 5. Don't bend over at the waist. Use a long handled shoehorn and a sock aid to help you put on your shoes and socks. A table hand can help you package pick up objects that are too high or too low to reach. 6. Keep car riding to a minimum for at least one month after surgery. B. Your balance may be shaky for a while. Use crutches or a walker until directed by your doctor. C. Use hand rails when walking on stairs. D. Wear low heeled shoes with non-slip soles. E. Be sure that your floors are free of things that could trip you - throw rugs, electrical cords, small objects. Avoid wet and waxed floors, especially with crutches and canes. F. Try to walk several times a day with rest periods between. G. Continue with all the exercises taught to you in the hospital. Again, make walking a part of your daily routine. VERY IMPORTANT TO READ AND REVIEW A. Take Coumadin, or Lovenox (blood thinning medications) as directed by your doctor. If you are on Coumadin, have a pro-time (blood test) drawn according to your doctor's instructions. This will tell the doctor how well the Coumadin is thinning your blood. B. There are a few signs you need to watch for after you are home. If you notice any of the followin. Increased severe hip pain. Some pain is expected especially when you exercise. 2. Increased swelling in your leg or knee; pain or swelling of the calf muscle in either lower leg. 3. Any fluid drainage from the incision. 4. Shortness of breath or chest pain. TEDs/Elastic Stockings: * The white elastic stockings help limit swelling and prevent blood clots from forming in your legs. The more you wear them, the more they work. * Wear them for six weeks. Prevention of Infection: * Take antibiotics one hour before any dental cleaning, dental work, urological procedure, gastrointestinal procedure or any invasive surgery in order to prevent your new joint from getting infected. * You may get the antibiotics from the doctor performing the procedure or we will call in a prescription to the pharmacy of your choice. Call the office for a prescription at least 2 days prior to your appointment. Things to Watch For: * Drainage from the incision site that occurs more than one week after your surgery. * Severely increased leg pain or swelling. * Increased redness at the incision site. * Fever above 101 degrees Fahrenheit. * Unusual chest pain or shortness of breath. * Unusual pain or burning with urination. Please take warfarin 4 mg (2 tablets) every evening at dinnertime. Start it on Monday and take it through the weekend. Your blood will be rechecked on Monday and will be adjusted Monday night. Use your walker for ambulation Ice the hip frequently to reduce pain and swelling Follow-up in the office on with Martin for removal of the wound VAC. Follow-up in the office in 2 weeks as scheduled for staple removal. Pending Studies at Discharge: Yes (Bone pathology) Stand-Alone Forms: [facility], Smoking Cessation Medications and DC Order Prescriptions: No Action nitroglycerin 0.4 mg tablet, sublingual 0.4 mg SL UD PRN (Reason: Angina) Qty: 25 3RF losartan 50 mg tablet 50 mg PO QAM Qty: 90 3RF metformin 500 mg tablet extended release 24 hr 1,000 mg PO BID Qty: 360 3RF amoxicillin 500 mg capsule 2,000 mg PO ONCE Qty: 4 2RF Rx Instructions: 30 minutes prior to dental procedure. atorvastatin 80 mg tablet 80 mg PO QAM Qty: 90 3RF triamcinolone acetonide [Triderm] 0.1 % cream 1 applic topical UD Rx Instructions: to Right ankle (DME) CPAP Machine Misc .Route Qty: 1 0RF Rx Instructions: CPAP 10 cm of water. [employer] latanoprost 0.005 % drops 1 drp ophthalmic (eye) DAILY Qty: 2.5 2RF cyanocobalamin (vitamin B-12) [Vitamin B-12] 1,000 mcg Tablet 1,000 mcg PO QAM aspirin 81 mg Tablet,Delayed Release (Dr/Ec) 81 mg PO QAM [place] 3 Fish Oil Capsule 1,000 mg PO QAM Rx Instructions: has not had for over 1 week metoprolol succinate 50 mg tablet extended release 24 hr 50 mg PO QAM Rx Instructions: To be taken as 50 mg Q AM/ 100 mg Q PM (separate tablet) metoprolol succinate 100 mg tablet extended release 24 hr 100 mg PO QPM Rx Instructions: To be taken as 50 mg every morning/100 mg every evening (separate tablet). Admission Data Admit Date/Time: 03/29/23 09:24 Attending Provider: Rl Tran Admit Provider: Rl Tran Primary Care Provider: Arie Mejia Other Providers: [facility],Home Health
--- NOTE | 2023-03-29 08:59 | Orthopedic Progress Note ---
Date of Service March 29, 2023 Assessment & Plan (1) Status post right hip replacement: Plan: Continue care pathway case management to follow DVT prophylaxis per protocol. Orthopedic Progress Note Tolerated right total replacement well denies chest pain shortness of breath fever chills nausea vomiting or headache. Wound dressing clean dry and intact neurovascular check limited by spinal x-ray pending.
--- NOTE | 2023-03-29 09:07 | Operative Report ---
Post Operative Report Pre & Post Diagnosis Operation Date: 03/29/23 07:00 Pre-Op Diagnosis: Right Hip End-Stage Degenerative Joint Disease Post-Op Diagnosis: Right Hip End-Stage Degenerative Joint Disease I identified the patient and participated in the time-out.: Yes Procedure Operation Date: 03/29/23 07:00 Actual Procedures p Right Total Hip Arthroplasty--Uncemented(Right) - Rl Tran MD Surgeon KATY Tran MD [facility] no resident or fellow available Estimated Blood Loss 200 Findings Consistent with Post-Op Diagnosis see operative report Specimens see operative report Drains none Complications none Disposition Accompanied Patient To Recovery: Yes Indications This 67-year-old male presented to the office with complaints of persisting right hip pain. He had tried conservative care measures without improvement. He elected to proceed with surgical intervention after being educated about potential risks and outcomes. Preoperative imaging was obtained. He has a history of previous left total hip arthroplasty and elected to proceed with the same on the right. Description of Procedure The patient was administered a spinal anesthetic and then taken to the operating room where he was given sedation. He was prepped and draped in the usual sterile fashion. Please see Dr. Tran's operative report for specifics of the procedure. I was present for the entire case from initial patient positioning through final wound closure. Assistance was provided in tissue retraction, hemostasis, trial implant placement, final implant placement, and final wound closure. The patient was taken to the recovery room in satisfactory condition. I attest to the content of the Intraoperative Record and any orders documented therein. Any exceptions are noted below.
--- NOTE | 2023-03-29 10:11 | Anesthesiology Progress Note ---
Date of Service March 29, 2023 Anesthesia Post Procedure Vital Signs Vital Signs: Temp Pulse Resp BP Pulse Ox O2 Del Method O2 Flow Rate 03/29/23 10:00 36.6 C 70 24 126/89 94 Nasal Cannula 3 03/29/23 09:50 36.6 C 72 20 108/63 95 Nasal Cannula 3 03/29/23 09:40 36.6 C 68 17 121/72 94 Nasal Cannula 3 03/29/23 09:30 66 22 104/74 96 Oxymask 3 03/29/23 09:20 74 21 105/74 97 Oxymask 5 03/29/23 09:10 68 18 100/74 92 Oxymask 10 03/29/23 09:02 36.9 C 72 16 90/70 L 93 Oxymask 10 03/29/23 06:21 137/92 03/29/23 05:42 36.7 C 75 20 155/105 H 94 Room Air Pain Intensity Right Hip: Pain Intensity: 0 Transfer of Care Handoff Completed per policy Notes Mental Status: alert / awake / arousable Patient Amnestic to Procedure: Yes Nausea / Vomiting: adequately controlled Pain: adequately controlled Airway Patency, RR, SpO2: stable & adequate BP & HR: stable & adequate Hydration State: stable & adequate Neuraxial Anesthesia: was administered and sensory block is resolving Anesthetic Complications: no major complications apparent
[2023-03-29] MEDS ORDERED: HYDROmorphone INJ 0.5 MG/0.5 ML SYR IV PRN (10:35)
[2023-03-29] MEDS ORDERED: METOCLOPRAMIDE HCL INJ 5 MG/ML 2 ML VIAL IV PRN (10:35)
[2023-03-29] MEDS ORDERED: PHARMACY GLYCEMIC MGMT CONSULT PRN (10:35)
[2023-03-29] MEDS ORDERED: MAGNESIUM HYDROXIDE SUSP 30 ML UDC PO PRN (10:35)
[2023-03-29] MEDS ORDERED: NITROGLYCERIN SL 0.4 MG/TAB TAB SL PRN (10:35)
[2023-03-29] MEDS ORDERED: ONDANSETRON INJ 2 MG/ML 2 ML VIAL IV PRN (10:35)
[2023-03-29] MEDS ORDERED: SODIUM CHLORIDE 0.9% 1,000 ML IV SCH (10:35)
[2023-03-29] MEDS ORDERED: diphenhydrAMINE 50 MG/ML VIAL IV PRN (10:35)
[2023-03-29] MEDS ORDERED: bisacodyL 10 MG SUPP PR PRN (10:35)
[2023-03-29] MEDS ORDERED: ALUMINUM/MAGNESIUM SUSP 30 ML UDC PO PRN (10:35)
[2023-03-29] MEDS ORDERED: TAMSULOSIN HCL 0.4 MG CAP PO PRN (10:35)
[2023-03-29] MEDS ORDERED: NALOXONE HCL 0.4 MG/1 ML VIAL/CARP IV PRN (10:35)
[2023-03-29] MEDS ORDERED: VANCOMYCIN CONSULT ACTIVE PRN (10:35)
[2023-03-29] MEDS ORDERED: INFLUENZA VACCINE HIGH-DOSE (HD-IIV4) PF 65+ 0.7mL SYR IM ONE (10:44)
--- NOTE | 2023-03-29 10:46 | XRay Report ---
XR pelvis 1-2V routine CLINICAL HISTORY: Postoperative evaluation. COMPARISON: Pelvis and right hip radiographs January 02, 2023. FINDINGS: Alignment of the total right hip arthroplasty is anatomic. There is no periprostatic fract ure or unexpected radiopaque foreign body. Skin rancho are noted. There is an acetabular screw. Left hip arthroplasty is unchanged in appearance. IMPRESSION: Expected findings following total right hip arthroplasty. ACT 112: Negative or not required by law. Electronically signed by: Osmany Davis M.D. 03/29/2023 10:15 AM
[2023-03-29] MEDS ORDERED: GLUCOSE 40% GEL 15 GM TUBE PO PRN (11:00)
[2023-03-29] MEDS ORDERED: GLUCAGON FOR INJ 1 MG VIAL IM PRN (11:00)
[2023-03-29] MEDS ORDERED: GLUCOSE 10 TAB/TUBE PO PRN (11:00)
[2023-03-29] MEDS ORDERED: CARBOHYDRATES FOR HYPOGLYCEMIA PO PRN (11:00)
[2023-03-29] MEDS ORDERED: DEXTROSE 50% 50 ML SYRINGE IV PRN (11:00)
[2023-03-29] MEDS: KETOROLAC TROMETHAMINE 15 MG/ML VIAL IV SCH ×3 (11:42→23:36)
[2023-03-29] MEDS: TRIAMCINOLONE ACET 0.1% CR 15 GM TUBE TOP SCH (11:42)
[2023-03-29] MEDS: INSULIN ASPART PER UNIT CHARGE SC SCH ×3 (12:17→21:06)
--- NOTE | 2023-03-29 13:32 | Pharmacy Report ---
Pharmacy Glycemic Short Note 2 - Date of Service March 29, 2023 - Glycemic Short BSG Results (Last 24 hours): 03/29/23 03/29/23 05:43 10:35 POC Glucose 102 H 111 H OUTPATIENT ANTIDIABETIC REGIMEN: * Metformin ER 1 g PO BIDM * HbA1c: 6.3% (03/13/23) ASSESSMENT: * 57 yo M admitted on 03/29/23 postoperatively following a right total hip arthroplasty. Pharmacy has been consulted to assist with inpatient glycemic management. Patient is a Type 2 diabetic as an outpatient. Please refer to outpatient regimen and most recent HbA1c above. * Ordered and tolerating a T2DM diet postoperatively. Stressors stable. * Preop BSG was 102 mg/dL and postop BSG was 111 mg/dL. * Will hold off on any basal insulin as patient received no perioperative steroids. During previous admission, patient required no basal insulin. No volog will be started based on weight/stress of 1. PLAN FOR INPATIENT GLYCEMIC CONTROL: * Hold outpatient oral diabetes medications * Basal insulin * None * Bolus insulin * NovoLog per scale ACHS or Q6hrs while NPO * Goal Range: Low 110 mg/dL - High 140 mg/dL * Correction Factor: 30 mg/dL/unit * Nutritional / Prandial insulin per carb ratio of 1 unit per 10 grams CHO consumed
[2023-03-29] MEDS: ACETAMINOPHEN 500 MG TAB PO SCH ×2 (13:41→21:49)
[2023-03-29] MEDS: oxyCODONE HCL IR 5 MG TAB (IMMEDIATE RELEASE) PO PRN ×2 (13:41→18:09)
[2023-03-29] MEDS ORDERED: ORTHO WARFARIN NOMOGRAM SCH (14:00)
[2023-03-29] MEDS ORDERED: TRANEXAMIC ACID / 0.7% NACL 1,000 MG/100 ML BAG IV SCH (16:00)
[2023-03-29] MEDS ORDERED: WARFARIN SOD 5 MG TAB PO SCH (16:00)
[2023-03-29] MEDS: ceFAZolin 2000MG 2,000 MG/15 ML SYR IV SCH ×2 (16:50→23:37)
[2023-03-29] MEDS: FERROUS GLUCONATE 324 MG TAB PO SCH (17:02)
[2023-03-29] MEDS: ASCORBIC ACID 500 MG TAB PO SCH (17:02)
[2023-03-29] MEDS ORDERED: VANCOMYCIN HCL 2,000 MG in SODIUM CHLORIDE 0.9% 500 ML IV SCH (19:15)
[2023-03-29] MEDS: DOCUSATE SODIUM 100 MG CAP PO SCH (20:11)
[2023-03-29] MEDS ORDERED: METOPROLOL SUCC 50MG EXT REL TAB PO SCH (21:00)
[2023-03-29] MEDS ORDERED: SENNA 8.6 MG TAB PO SCH (21:00)
[2023-03-30] MEDS: oxyCODONE HCL IR 5 MG TAB (IMMEDIATE RELEASE) PO PRN ×2 (05:01→10:46)
[2023-03-30] MEDS: ACETAMINOPHEN 500 MG TAB PO SCH (05:07)
[2023-03-30] MEDS: KETOROLAC TROMETHAMINE 15 MG/ML VIAL IV SCH (05:08)
--- NOTE | 2023-03-30 06:57 | Orthopedic Progress Note ---
Date of Service March 30, 2023 Assessment & Plan (1) Status post right hip replacement: Plan: Continue care pathway case management to follow DVT prophylaxis per protocol. Plan Follow care pathway for total hip replacement Admission and Anticipated Discharge Date Admission Date: March 29, 2023 Orthopedic Progress Note Postop day #1 status post right total replacement. Patient is doing well. Denies chest pain shortness of breath fever chills nausea vomiting or headache. Does get some heel pain when he lies in bed. He is a large man needs to be careful getting pressure sores. He notes that his hip pain is very minimal. He is sitting up in a chair. Neurovascular check femoral sciatic nerve is normal wound dressing clean dry and intact. Assessment doing well status post right total hip replacement. Plan is to discharge today after PT OT and dressing change. Started Coumadin. Keep INR 1.8-2.2. Follow-up in 2 weeks for staple removal. Keep retention sutures in for another 4 to 5 days. Kaelyn will be placed today. Tolerated right total replacement well denies chest pain shortness of breath fever chills nausea vomiting or headache. Wound dressing clean dry and intact neurovascular check limited by spinal x-ray pending.
[2023-03-30 07:44] LABS: Basophils # (auto) 0.03 K/uL (0.00-0.20); Basophils % (auto) 0.2 %; Eosinophils # (auto) 0.01 K/uL (0.00-0.50); Eosinophils % (auto) 0.1 %; Hematocrit (blood only) 40.4 % (42.0-52.0); Hemoglobin 13.1 g/dl (14.0-18.0); Immature Granulocytes # (auto) 0.05 K/uL (0.01-0.20); Immature Granulocytes % (auto) 0.4 %; Lymphocytes % (auto) 10.6 %; Mean Corpuscular Hgb Conc 32.4 g/dL (32.0-36.0); Mean Corpuscular Volume 92.7 fL (80.0-100.0); Mean Platelet Volume 11.4 fL (9.4-12.4); Monocytes # (auto) 1.25 K/uL (0.11-0.59); Monocytes % (auto) 10.2 %; Neutrophils % (auto) 78.5 %; Platelet Count 146 K/uL (130-400); RDW Coefficient of Variation 13.9 % (11.5-14.5); RDW Standard Deviation 47.3 fL (36.4-46.3); Red Blood Count 4.36 M/uL (4.70-6.10); White Blood Count 12.24 K/ul (4.8-10.8)
[2023-03-30 07:55] LABS: BUN Creatinine Ratio 19.5 (10-20); Calcium 9.2 mg/dl (8.6-10.3); Creatinine Clr Calc Pharmacy 137.5 ml/min; Est GFR (African American) 106.1 ml/min; Est GFR (Non-African American) 91.5 ml/min; Potassium 4.1 mmol/L (3.5-5.1)
[2023-03-30] MEDS: ASCORBIC ACID 500 MG TAB PO SCH (07:57)
[2023-03-30] MEDS: TRIAMCINOLONE ACET 0.1% CR 15 GM TUBE TOP SCH (07:57)
[2023-03-30] MEDS: DOCUSATE SODIUM 100 MG CAP PO SCH (07:57)
[2023-03-30] MEDS: FERROUS GLUCONATE 324 MG TAB PO SCH (07:58)
[2023-03-30] MEDS: INSULIN ASPART PER UNIT CHARGE SC SCH (08:13)
[2023-03-30 08:17] LABS: INR 1.2 (0.9-1.1); Prothrombin Time 12.6 Seconds (9.0-12.0)
[2023-03-30] MEDS ORDERED: MULTIVITAMIN TAB PO SCH (09:00)
[2023-03-30] MEDS ORDERED: ATORVASTATIN 40 MG TAB PO SCH (09:00)
[2023-03-30] MEDS ORDERED: ASPIRIN 81 MG ECTAB PO SCH (09:00)
[2023-03-30] MEDS ORDERED: METOPROLOL SUCC 50MG EXT REL TAB PO SCH (09:00)
[2023-03-30] MEDS ORDERED: LOSARTAN POTASSIUM 50 MG TAB PO SCH (09:00)
--- NOTE | 2023-03-30 09:19 | Orthopedic Progress Note ---
Date of Service March 30, 2023 Assessment & Plan (1) Status post right hip replacement: Plan: The patient was educated regarding today's findings. Conservative care measures were discussed. His dressings were removed. Skin was dried with a drain sponge. A Prevena wound VAC was applied to his hip. Due to the positioning of the drain, it was uncomfortable for him to sit. A new sponge pad was applied and he was able to move and sit more comfortably. He will leave this in place for 6 days. Follow-up in the office on Monday at 3:30 PM with me for removal. Prescriptions for warfarin 2 mg and Percocet were sent to his pharmacy. Continue warfarin 4 mg daily through the weekend. Have his blood rechecked on Monday. Written discharge instructions were provided. Maintain total hip precautions. Importance of using his walker while ambulating was emphasized. Call the office with any other concerns. Discharge to home today with home health services after PT/OT. This has been arranged by the office. Admission and Anticipated Discharge Date Admission Date: March 29, 2023 Subjective This 67-year-old male is seen today in his room. He is 1 day status post right total hip arthroplasty. He states he did not sleep well overnight. His pain is managed, but he does not normally sleep flat on his back in bed. He states his heels are tender today. He feels ready to go home. His is present at today's visit. The patient denies any chest pain, shortness of breath, nausea, vomiting, or abdominal pain. No additional new complaints. Review of Systems Review of Systems: Unchanged from yesterday. Physical Exam Physical Exam: General: Well-developed, well-nourished, middle-aged male, in no acute distress. Sitting in his bedside chair. Alert and oriented. Skin: Warm and dry with good turgor. Postsurgical dressings are in place. There is no strikethrough. Upon removal of his hip dressing, the inner dressings are saturated. He has some punctate oozing from his retention sutures. There is no bleeding from the incision itself. Expected postoperative ecchymosis and edema. Musculoskeletal: The patient has supple motion of his right hip. He rises easily from a chair and stands without difficulty using his walker. He is able to ambulate around the room without difficulty. Intact motor function to the knee. Right ankle is fused. Motor function of the toes is intact. Neurologic: Gross sensation is intact across the right leg by soft touch. Peripheral pulses are 2+. Results & Data Vital Signs (Past 12 Hours) Vital Signs Temp Pulse Resp BP BP Pulse Ox O2 Del Method 03/30/23 07:31 36.8 C 73 16 107/71 94 Room Air 03/30/23 04:16 37.5 C 70 18 123/79 94 Room Air 03/30/23 00:35 36.7 C 72 18 115/78 92 CPAP 03/29/23 21:30 76 95 Nasal Cannula, CPAP O2 Flow Rate 03/30/23 07:31 03/30/23 04:16 03/30/23 00:35 03/29/23 21:30 2 Laboratory Results CBC obtained this morning shows a white count of 12.2. Hemoglobin of 13.1 and hematocrit 40.4. INR 1.2. Sodium 138, potassium 4.1, CO2 29, anion gap of 4. BUN of 16 and creatinine 0.82. Glucose 122.
[2023-03-30] MEDS ORDERED: LATANOPROST 0.005% OP SOLN 2.5 ML BTL OP SCH (21:00)
== END 2023-03-30 11:34 | disposition home health service (06) ==
LOC: ASU 05:17 → 3E 05:17